=== PATIENT | male | born 1950 | race Caucasian/White ===

== ENCOUNTER 2023-05-05 13:40 | Emergency (ER) | payer MEDICARE, SELFPAY ==
--- NOTE | ~2023-05-05 | XR_ITS ---
EXAMINATION:XR cervical spine 4-5V DATE: 05/05/2023 14:04 INDICATION: Neck pain TECHNIQUE: AP, lateral, lateral swimmers and odontoid views of the cervical spine are provided. COMPARISON: None FINDINGS: There are 2 mm of anterolisthesis of C4 on C5 and C5 on C6. The odontoid process is intact. There is severe loss of intervertebral disc space height at C3-4, C5-6, and C6-7. The vertebral body heights are maintained. There is multilevel severe facet and uncovertebral joint osteoarthritis. IMPRESSION: 1. Severe cervical spondylosis without acute findings. Reviewed, dictated and finalized at location B.
--- NOTE | 2023-05-05 13:42 | ED.NECK ---
HPI - Neck Pain/Injury General Chief Complaint: Neck Pain/Injury Stated Complaint: Neck Pain Source: patient and RN notes reviewed Mode of arrival: ambulatory Limitations: no limitations History of Present Illness HPI Narrative: Patient is a 73-year-old male who presents to the [facility] with complaints pain. Patient states that he has had neck pain for quite awhile but it has worsened over the past. Patient states that he can feel his neck crack with moving his neck from side to side. However, patient has full range of motion of his neck. He denies any injury to his neck. States that his pain worsens with movement and positioning. Patient states that initially the pain was located on the right side of his neck but is now more generalized. He is neurologically intact. There are no obvious neurological deficits. Related Data Home Medications Medication Instructions Recorded Confirmed donepezil 10 mg tablet 10 mg PO DAILY 05/05/23 05/05/23 famotidine 20 mg tablet 40 mg PO DAILY 05/05/23 05/05/23 multivitamin with folic acid 400 1 tablet PO DAILY 05/05/23 05/05/23 mcg tablet (Daily-Jasvir (with folic acid)) paroxetine HCl 20 mg tablet 20 mg PO DAILY 05/05/23 05/05/23 tamsulosin 0.4 mg capsule 0.4 mg PO DAILY 05/05/23 05/05/23 Allergies Allergy/AdvReac Type Severity Reaction Status Date / Time No Known Allergies Allergy Verified 05/05/23 13:59 Review of Systems Review of Systems: CONSTITUTIONAL: Denies fever, chills, or sweats. EYES: Denies visual changes, redness, or discharge. ENT: Denies otalgia and sore throat CARDIOVASCULAR: Denies chest pain, palpitations, or edema. RESPIRATORY: Denies cough or dyspnea. GASTROINTESTINAL: Denies abdominal pain, nausea, vomiting, or diarrhea. GENITOURINARY: Denies dysuria or hematuria. SKIN: Denies rash or itching. MUSCULOSKELETAL: Denies back pain, joint pain, or myalgia. Reports neck pain. NEUROLOGIC: Denies headache, numbness, or weakness. Pertinent positives per HPI. [facility] Social History Social History Smoking status: Former smoker Smoking end date: 08/16/87 Alcohol intake: current Comments At the time of my signature, I reviewed and agree with the nursing past medical, surgical, social, and family history. There is no relevant family history pertinent to the patient complaint. Exam Narrative: GENERAL: This is a well-nourished, well-developed patient, in no apparent distress. HEAD: normocephalic, atraumatic. EYES: PERRL. Sclera clear/white. Vision is grossly intact. EARS: External ears normal, auditory canals clear and without drainage, TMs normal without perforation. Hearing grossly intact. NOSE: External nose normal with no obvious nasal discharge, nares without redness, no rhinorrhea. THROAT: Mucous membranes moist, posterior pharynx clear. NECK: Neck supple, non-tender without lymphadenopathy, masses or thyromegaly. Mild posterior midline tenderness. Full range of motion of the neck. CARDIOVASCULAR: Regular rate and rhythm without murmurs, gallops, or rubs. RESPIRATORY: Clear to auscultation. Breath sounds equal bilaterally. No wheezes, rales, or rhonchi. GASTROINTESTINAL: Abdomen soft, non-tender, nondistended. Bowel sounds are active. No hepato-splenomegaly, or palpable masses. No guarding. SKIN: warm, intact with no suspicious lesions or rash, good texture and turgor. NEURO: awake, alert, and oriented to person, place and time. There were no obvious focal neurologic abnormalities. EXTREMITIES: No clubbing, cyanosis, or edema. No joint tenderness, effusion, or edema noted. BACK: Nontender without deformity or crepitance. No flank tenderness. Course Course Level of Care: Express Care Visit Vital Signs Vital signs: Vital Signs Oxygen Delivery Room Air 05/05/23 13:52 Temperature 97.5 F L 05/05/23 13:53 Pulse Rate 65 05/05/23 13:53 Respiratory Rate 16 05/05/23 13:53
[2023-05-05 13:53] VITALS: BP 114/69; PULSE 65; RESP 16; TEMP 36.4; O2SAT 100
== END 2023-05-05 14:50 | disposition home or self-care (01) ==
PROVIDERS: Emergency Provider Nurse Practitioner; PCP Internal Medicine Infectious Disease
DX: M47.812 Spondylosis without myelopathy or radiculopathy, cervical region (principal); Z87.891 Personal history of nicotine dependence; G30.9 Alzheimer's disease, unspecified; F02.80 Dementia in other diseases classified elsewhere, unspecified severity, without behavioral disturbance, psychotic disturbance, mood disturbance, and anxiety
CPT/HCPCS: 72050; 99213; G0463

== ENCOUNTER 2023-06-26 10:37 | Outpatient (CLI) | payer MEDICARE, SELFPAY ==
--- NOTE | ~2023-06-26 | MR_ITS ---
EXAMINATION: MR cervical spine wo con DATE: 06/26/2023 11:27 INDICATION: Neck pain. TECHNIQUE: Magnetic resonance imaging (MRI) of the cervical spine was performed without intravenous c ontrast. COMPARISON: Cervical spine radiographs 05/05/2023 FINDINGS: There is 5 degrees levocurvature of cervicothoracic spine. There is 2 mm anterolisthesis of C2 on C3, 2 mm retrolisthesis of C3 on C4, 2 mm anterolisthesis of C4 on C5, and 3 mm anterolisthesi s of C7 on T1. There is mild chronic anterior wedging of T1 vertebral body. There is severe osteoarth ritis of anterior atlantoaxial joint with degenerative peridens pseudopannus and mild central canal s tenosis. There is severely decreased disc height at C3-C4, C5-C6, and C6-C7 with interbody fusion at C5-C6. There is increased T2-weighted signal intensity in the spinal cord at C6-C7, consistent with m yelomalacia. The following disc levels are specifically discussed: C2-C3: There is a central extrusion. There is mild bilateral uncovertebral joint osteoarthritis. Ther e is severe bilateral facet joint osteoarthritis. There is mild bilateral neural foraminal stenosis. There is mild central canal stenosis. C3-C4: The disc does not extend beyond the endplate margin. There is severe bilateral uncovertebral j oint osteoarthritis. There is severe bilateral facet joint osteoarthritis. There is moderate bilatera l neural foraminal stenosis. There is moderate central canal stenosis with ventral and dorsal indenta tion of the spinal cord. C4-C5: There is a left central protrusion. There is mild right and severe left uncovertebral joint os teoarthritis. There is severe bilateral facet joint osteoarthritis. There is mild right and moderate left neural foraminal stenosis. There is mild central canal stenosis. C5-C6: There is severe bilateral uncovertebral joint hypertrophy. There is mild bilateral facet joint hypertrophy. There is mild bilateral neural foraminal stenosis. There is mild central canal stenosis . C6-C7: The disc is bulging. There is severe bilateral uncovertebral joint osteoarthritis. There is se margo bilateral facet joint osteoarthritis. There is moderate right and mild left neural foraminal soniya nosis. There is mild central canal stenosis. C7-T1: There is a central extrusion. There is no uncovertebral joint osteoarthritis. There is severe bilateral facet joint osteoarthritis. There is mild left neural foraminal stenosis. There is mild russell tral canal stenosis. IMPRESSION: 1. 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 2. Severe cervical spondylosis. Reviewed, dictated and finalized at location A. [employer]
== END 2023-06-26 10:38 | disposition home or self-care (01) ==
PROVIDERS: PCP Internal Medicine Infectious Disease; Visit Provider Nurse Practitioner Family
DX: M47.892 Other spondylosis, cervical region (principal)
CPT/HCPCS: 72141

== ENCOUNTER 2024-10-14 09:26 | Emergency (ER) | payer MEDICARE, SELFPAY ==
[2024-10-14] VITALS (7 sets, daily range): BP systolic 125–165; BP diastolic 67–83; PULSE 51–78; RESP 14–16; TEMP 36.6; O2SAT 96–100
--- NOTE | 2024-10-14 10:04 | ED.FALL ---
HPI - Fall General Chief Complaint: Fall Stated Complaint: unwitnessed glf Time Seen by Provider: 10/14/24 10:04 Source: patient, family and EMS Mode of arrival: EMS Limitations: altered mental status History of Present Illness HPI Narrative: 74 years old white male came from longterm by ambulance because of a fall Patient sustained an unwitnessed fall this morning patient found on the floor, multiple front top teeth missing and broken patient is not on anticoagulant medication patient is awake and oriented x1 at baseline. Patient's at the bedside who is telling me patient is DNR, moved to longterm 1 week ago. Related Data Home Medications ?Medication ?Instructions ?Recorded ?Confirmed ?Last Taken ?Type donepezil 10 mg tablet 10 mg PO DAILY 05/05/23 06/05/24 06/05/24 09:14 History famotidine 20 mg tablet 20 mg PO BID 05/05/23 06/05/24 06/05/24 09:14 History paroxetine HCl 20 mg tablet 20 mg PO DAILY 05/05/23 06/05/24 06/05/24 09:14 History calcium carbonate 400 mg PO TID PRN Dyspepsia 06/05/24 06/05/24 Unknown History guaifenesin 600 mg tablet, 600 mg PO Q12H 06/05/24 06/05/24 06/05/24 09:14 History extended release 12 hr lidocaine 4 % topical patch 1 patch topical USEASDIRECTD 06/05/24 06/05/24 06/04/24 10:28 History (Aspercreme (lidocaine)) loratadine 10 mg tablet 10 mg PO DAILY PRN Allergy Symptoms 06/05/24 06/05/24 Unknown History melatonin 3 mg tablet 6 mg PO HS 06/05/24 06/05/24 06/04/24 19:56 History naloxone 0.4 mg/mL injection 0.4 mg subcut Q2-3M PRN Opioid 06/05/24 06/05/24 Unknown History solution Reversal polyethylene glycol 3350 17 gram 17 g PO BID 06/05/24 06/05/24 06/04/24 10:27 History oral powder packet sennosides 8.6 mg-docusate sodium 1 tab-cap PO DAILY 06/05/24 06/05/24 06/04/24 10:27 History 50 mg tablet Allergies Allergy/AdvReac Type Severity Reaction Status Date / Time No Known Allergies Allergy Verified 05/05/23 13:59 Review of Systems Review of Systems: All systems reviewed & are unremarkable except as noted in HPI and below PMFSH Past Medical History Medical History Arthritis Constipation Cirrhosis Frequent falls Dementia Social History Social History Smoking packs per day: 1 Smoking cigarettes per day: 20.0 Years smoked: 17 Smoking pack-years: 17.00 Smoking status: Former smoker Tobacco type: cigarettes Smoking end date: 08/16/87 Alcohol intake: former Substance use: never Do You Feel Safe in your Home?: Yes Lack of Transportation: No Lack of Food: Never True Current Housing: I Have Housing Concerned About Future Housing: No Difficulty Paying Gas/Electric Bills: No Difficulty Paying for Meds: No Currently Unemployed: No Education: Master's Degree or Higher Difficulty w/ Childcare or Family Care: No Living arrangements: with family Occupation/Education: retired Gender identity (if verbalized by the patient): Male Sexual Orientation (if Verbalized by the Patient): Straight or Heterosexual Spiritual care concerns: No Agree to blood products: Yes Exam Narrative: General appearance: Well-developed, well-nourished Skin: Normal color Head: Normocephalic, nontraumatic Eyes: Clear conjunctiva ENT: Oropharynx normal, ears normal, nose normal front top teeth missing, impacted and fracture, upper lip 1 cm laceration, subcutaneous Neck: Supple, nontender Chest and respiratory: Airway patent, no respiratory distress, no accessory muscle use tenderness across the chest, no bruises, no swelling no rash Heart: Regular rate/rhythm Abdomen: Soft, nontender, no organomegaly, quiet bowel sounds Vascular: Normal peripheral pulses, normal capillary refill. Musculoskeletal: Restricted left upper extremity movement at the shoulder area, no bruises, no swelling, no deformity Neurologic: Alert AND DISORIENTED TIME 4 Course Consultations Consultation #1: DR HAMLIN, ED PHYSICIAN AT [facility] WHO ACCEPTED PATIENT TRANSFER Date: 10/14/24 Time: 11:35 Vital Signs Vital signs: Vital Signs Temperature 36.6 C 10/14/24 09:25 Pulse Rate 78 10/14/24 09:25 Respiratory Rate 14 10/14/24 09:25 Blood Pressure 137/74 10/14/24 09:25 Pulse Oximetry 99 10/14/24 09:25 Oxygen Delivery Room Air 10/14/24 09:25 Temperature 36.6 C 10/14/24 09:25 Pulse Rate 69 10/14/24 11:00 Respiratory Rate 15 10/14/24 11:00 Blood Pressure 134/67 10/14/24 11:00 Pulse Oximetry 96 10/14/24 11:00 Oxygen Delivery Room Air 10/14/24 09:25 MDM - Fall MDM Narrative Medical decision making narrative: UNWITNESSED FALL AT THE LONG-TERM VITAL SIGNS ARE STABLE PHYSICAL EXAMINATION SHOWING ALERT PATIENT, DISORIENTED X 4, UPPER FRONT INCISOR FRACTURE/MISSING, DIFFUSE CHEST TENDERNESS WORKUP TODAY INCLUDED CT SCAN OF THE HEAD AND CERVICAL SPINE SHOWED NO ACUTE ABNORMALITIES, CT FACIAL BONES SHOWING LEFT MAXILLARY FRACTURE, FRONT AND LATERAL INCISOR FRACTURE, CT CHEST SHOWED RIGHT 5-7 RIB FRACTURE NONDISPLACED X-RAY LEFT SHOULDER SHOWED ROTATOR CUFF TEAR PATIENT RECEIVED A TETANUS SHOT AND NORMAL SALINE 100 CC/HOURS ACCEPTED FOR TRANSFERRED TO [facility] ED Differential Diagnosis Differential diagnosis: Likely other ( ABOVE) Imaging Data Radiologist's impression: Impressions Head CT 10/14/24 10:44 IMPRESSION: 1. Normal aging brain with no fracture or acute intracranial process. Chest CT 10/14/24 10:50 IMPRESSION: 1. Nondisplaced anterolateral right fifth-seventh rib fractures. 2. Mild dependent atelectasis in both lungs. No pneumothorax or other acute cardiopulmonary disease. 3. Cirrhosis with stigmata of secondary portal venous hypertension. 4. Moderate bilateral glenohumeral osteoarthritis with suggestion of a right glenohumeral joint effusion and/or fluid in the subacromial/subdeltoid bursa. Head/Cervical Spine/Facial Bones CT 10/14/24 10:56 IMPRESSION: 1. No acute maxillofacial fractures. 2. Possible fractures of the left maxillary central and lateral incisors. 3. Severe cervical spondylosis with no acute fracture. Shoulder X-Ray 10/14/24 11:13 IMPRESSION: Moderate left acromioclavicular and glenohumeral osteoarthritis with no fracture. 2. Possible subluxation of the left humeral head with respect to the glenoid and acromion which could be seen in the setting of rotator cuff tear. Discharge Plan Discharge Clinical Impression: Facial bone fracture, Closed rib fracture, Fracture of incisor teeth, Left rotator cuff tear Patient Disposition: Acute Care Hospital Condition: Stable Additional Instructions: TRANSFERRED TO [facility] Patient Language: Colombian Prescriptions: No Action donepezil 10 mg tablet 10 mg PO DAILY famotidine 20 mg tablet 20 mg PO BID paroxetine HCl 20 mg tablet 20 mg PO DAILY lidocaine [Aspercreme (lidocaine)] 4 % Adhesive Patch,Medicated 1 patch TOPICAL USEASDIRECTD Rx Instructions: Ribs polyethylene glycol 3350 17 gram Powder In Packet 17 g PO BID naloxone 0.4 mg/mL Solution 0.4 mg SUBCUT Q2-3M PRN (Reason: Opioid Reversal) Rx Instructions: inject 0.25-1 mL sennosides-docusate sodium 8.6-50 mg Tablet 1 tab-cap PO DAILY melatonin 3 mg Tablet 6 mg PO HS calcium carbonate 200 mg calcium (500 mg) Tablet,Chewable 400 mg PO TID PRN (Reason: Dyspepsia) loratadine 10 mg Tablet 10 mg PO DAILY PRN (Reason: Allergy Symptoms) guaifenesin 600 mg Tablet Extended Release 12hr 600 mg PO Q12H Rx Instructions: x7 days midodrine 5 mg Tablet 5 mg PO Q8HR Qty: 90 0RF quetiapine [Seroquel] 25 mg Tablet 50 mg PO HS Qty: 60 0RF acetaminophen 325 mg Tablet 325 mg PO Q6H PRN (Reason: prn) Qty: 30 0RF gabapentin 100 mg Capsule 100 mg PO TID Qty: 90 0RF fludrocortisone 0.1 mg Tablet 0.1 mg PO DAILY Qty: 30 0RF methocarbamol 500 mg Tablet 500 mg PO Q8H Qty: 60 0RF trazodone 50 mg Tablet 50 mg PO HS Qty: 30 0RF Follow-up/Referrals: Leigh Ann,Jayme Garcia MD [Primary Care Provider] -
[2024-10-14] MEDS: TETANUS,DIPHTHERIA,AC PERTUSSIS ADULT (0.5 ML) BOOSTRIX IM (11:55)
[2024-10-14] MEDS: SODIUM CHLORIDE 0.9% IV 1,000 ML 100 ML IV CONT (11:56)
--- NOTE | 2024-10-14 15:00 | PC.NURSE ---
SEAN Vaughn at [facility] updated that pt. will be transferred to [facility]. All questions answered at this time.
--- NOTE | 2024-10-14 15:46 | PC.NURSE ---
Report given to [facility]. Pt. taken to [facility] via BLS ambulance. at bedside when ambulance arrives and will meet pt. at [facility].
== END 2024-10-14 15:48 | disposition short-term general hospital (02) ==
PROVIDERS: Emergency Provider Emergency Medicine; PCP Internal Medicine Infectious Disease
DX: S02.5XXA Fracture of tooth (traumatic), initial encounter for closed fracture (principal); S22.41XA Multiple fractures of ribs, right side, initial encounter for closed fracture; S46.012A Strain of muscle(s) and tendon(s) of the rotator cuff of left shoulder, initial encounter; Z23 Encounter for immunization; F03.90 Unspecified dementia, unspecified severity, without behavioral disturbance, psychotic disturbance, mood disturbance, and anxiety; K74.60 Unspecified cirrhosis of liver; M19.90 Unspecified osteoarthritis, unspecified site; Z66 Do not resuscitate; Z87.891 Personal history of nicotine dependence; W19.XXXA Unspecified fall, initial encounter; M47.812 Spondylosis without myelopathy or radiculopathy, cervical region; M19.012 Primary osteoarthritis, left shoulder; I45.10 Unspecified right bundle-branch block
CPT/HCPCS: 70450; 70486; 71250; 72125; 73030; 90471; 90715; 93005; 96360; 96361; 99285; J7030

== ENCOUNTER 2024-11-09 18:26 | Emergency (ER) | payer MEDICARE, SELFPAY ==
--- NOTE | ~2024-11-09 | CT_ITS ---
CT brain wo con Ordering provider: Zen Newby MD History: 74 years Male with . fall . Comparison: None. Technique: CT of the head without contrast. Radiation reduction technique utilized. The dose-length product was 681 mGy-cm. FINDINGS: BRAIN PARENCHYMA AND CSF SPACES: Mild leukoaraiosis and diffuse cortical atrophy. Mild atheromatous d isease. No midline shift, mass effect or hemorrhage. The brain parenchyma and CSF spaces are otherwi se normal. VISUALIZED PARANASAL SINUSES: Right sphenoid sinus. Otherwise, Well aerated. MASTOIDS: Well aerated. BONES: The bones appear intact. SOFT TISSUES: Visualized nasopharynx is normal. Superficial soft tissues are normal. IMPRESSION: No acute intracranial findings. Reviewed, dictated and finalized at location A.
--- NOTE | ~2024-11-09 | XR_ITS ---
XR elbow LT 2V Ordering provider: Zen Newby MD History: . fall, skin tear . Comparison: None. FINDINGS: BONES: No acute fracture or dislocation. JOINT SPACES: Normal. SOFT TISSUES: Normal. No definite joint effusion. IMPRESSION: No acute osseous abnormality left elbow. Reviewed, dictated and finalized at location A.
--- NOTE | ~2024-11-09 | CT_ITS ---
CT cervical spine wo con Ordering provider: Zen Newby MD History: . fall . Comparison: None. Technique: CT of the cervical spine was performed without contrast. Sagittal and coronal reformatted images were also obtained and reviewed. Automated exposure control and iterative reconstruction jovi hnique were employed. The dose-length product was 470.49 mGy-cm. FINDINGS: VERTEBRAE: Minimal anterolisthesis at the level of C4-C5 and C7-T1. No acute fracture. The occipital condyles are intact. DISC SPACES: Narrowing of the disc C3-C4, C5-C6 and C6-C7. Multilevel facet joint disease. Multilevel uncovertebral joint osteoarthritic changes. Multilevel intervertebral foraminal narrowing. PARASPINOUS SOFT TISSUES: Bilateral carotid atherosclerotic changes. IMPRESSION: No acute osseous abnormality cervical spine. Minimal anterolisthesis at the level of C4-C5 and C7-T1. Multilevel degenerative disc disease. Reviewed, dictated and finalized at location A. IMPRESSION: No acute osseous abnormality cervical spine. Minimal anterolisthesis at the lev el of C4-C5 and C7-T1. Multilevel degenerative disc disease.
[2024-11-09 18:24] VITALS: BP 120/61; PULSE 67; RESP 14; TEMP 36.2; O2SAT 97
--- NOTE | 2024-11-09 18:31 | ECG_ITS ---
Test Date: 2024-11-09 18:55:51 Measurements Intervals [place] Rate: 62 P: 57 MA: 179 QRS: 4 QRSD: 143 T: 7 QT: 413 QTc: 420 Interpretive Statements SINUS RHYTHM RIGHT BUNDLE BRANCH BLOCK [120+ ms QRS DURATION, UPRIGHT V1, 40+ ms S IN I/aVL/V4/V5/V6] Compared to ECG 10/14/2024 09:34:16 No significant changes Electronically Signed On 11-10-2024 10:39:52 CDT by Mary Colon M.D.
--- NOTE | 2024-11-09 18:32 | ED.FALL ---
HPI - Fall General Chief Complaint: Fall Stated Complaint: fall History of Present Illness HPI Narrative: 74-year-old male [facility] for concerns of a fall while trying to get out of a chair. Patient has baseline alert times 1-2 from advanced dementia. He fell and struck the left side of his head and elbow against the door frame of the nurse's office. Did not lose consciousness. Patient is complain of pain in his neck and elbow. Was otherwise in his normal state of health. Recently seen here several weeks ago for another mechanical sending fall and transfer to outside hospital secondary to multiple injuries. Patient is answering questions and arousable. Moves all extremities spontaneously and with commands. Presents in a C-collar. His tetanus is up-to-date during his last visit several weeks ago. Brought back in to room 2. For further evaluation. Related Data Home Medications ?Medication ?Instructions ?Recorded ?Confirmed ?Last Taken ?Type donepezil 10 mg tablet 10 mg PO DAILY 05/05/23 06/05/24 06/05/24 09:14 History famotidine 20 mg tablet 20 mg PO BID 05/05/23 06/05/24 06/05/24 09:14 History paroxetine HCl 20 mg tablet 20 mg PO DAILY 05/05/23 06/05/24 06/05/24 09:14 History calcium carbonate 400 mg PO TID PRN Dyspepsia 06/05/24 06/05/24 Unknown History guaifenesin 600 mg tablet, 600 mg PO Q12H 06/05/24 06/05/24 06/05/24 09:14 History extended release 12 hr lidocaine 4 % topical patch 1 patch topical USEASDIRECTD 06/05/24 06/05/24 06/04/24 10:28 History (Aspercreme (lidocaine)) loratadine 10 mg tablet 10 mg PO DAILY PRN Allergy Symptoms 06/05/24 06/05/24 Unknown History melatonin 3 mg tablet 6 mg PO HS 06/05/24 06/05/24 06/04/24 19:56 History naloxone 0.4 mg/mL injection 0.4 mg subcut Q2-3M PRN Opioid 06/05/24 06/05/24 Unknown History solution Reversal polyethylene glycol 3350 17 gram 17 g PO BID 06/05/24 06/05/24 06/04/24 10:27 History oral powder packet sennosides 8.6 mg-docusate sodium 1 tab-cap PO DAILY 06/05/24 06/05/24 06/04/24 10:27 History 50 mg tablet Allergies Allergy/AdvReac Type Severity Reaction Status Date / Time No Known Allergies Allergy Verified 05/05/23 13:59 Review of Systems Review of Systems: As reviewed above in [facility] Past Medical History Medical History Arthritis Constipation Cirrhosis Frequent falls Dementia Social History Social History Smoking packs per day: 1 Smoking cigarettes per day: 20.0 Years smoked: 17 Smoking pack-years: 17.00 Smoking status: Former smoker Tobacco type: cigarettes Smoking end date: 08/16/87 Alcohol intake: former Substance use: never Do You Feel Safe in your Home?: Yes Lack of Transportation: No Lack of Food: Never True Current Housing: I Have Housing Concerned About Future Housing: No Difficulty Paying Gas/Electric Bills: No Difficulty Paying for Meds: No Currently Unemployed: No Education: Master's Degree or Higher Difficulty w/ Childcare or Family Care: No Living arrangements: with family Occupation/Education: retired Gender identity (if verbalized by the patient): Male Sexual Orientation (if Verbalized by the Patient): Straight or Heterosexual Spiritual care concerns: No Agree to blood products: Yes Exam Narrative: GENERAL: Elderly and thin, frail appearing, not any acute distress, answers questions and arousable HEAD: [Normocephalic, atraumatic.] EYES: [PERRLA and EOMI.] ENT: Nares clear, no rhinorrhea or epistaxis. Mucous membranes moist. NECK: Supple. C-collar in place CHEST: [Clear to auscultation. No respiratory distress.] HEART: [Regular rate and rhythm]. No murmur heard. [Normal peripheral pulses.] ABDOMEN: [Soft, nondistended], [nontender], [No rigidity or guarding] EXTREMITIES: Normal range of motion. [No edema.] No leg swelling or elbow swelling. Full range of motion of the elbow. SKIN: Skin tear to the left lateral elbow without any significant wound. No bleeding. NEURO: [No focal deficits]. Moves both arms and feet, answers questions appropriately, follows commands, no facial asymmetry. Pupils 2 mm and reactive. No appreciable sensory deficits. Alert to his apparent baseline. PSYCH: [Normal mood and affect.] Course Vital Signs Vital signs: Vital Signs Temperature 36.2 C L 11/09/24 18:24 Pulse Rate 67 11/09/24 18:24 Respiratory Rate 14 11/09/24 18:24 Blood Pressure 120/61 11/09/24 18:24 Pulse Oximetry 97 11/09/24 18:24 Temperature 36.2 C L 11/09/24 18:24 Pulse Rate 67 11/09/24 18:24 Respiratory Rate 14 11/09/24 18:24 Blood Pressure 120/61 11/09/24 18:24 Pulse Oximetry 97 11/09/24 18:24 MDM - Fall MDM Narrative Medical decision making narrative: 74-year-old male presenting [facility] for a [facility]. He fell out of a chair and struck the left side of his head and elbow against a door frame before going to the ground. Did not lose consciousness. Not on any anticoagulation on review of the EMR and nursing notes. His a history of advanced dementia, alcoholic cirrhosis, frequent falls. Was recently here several weeks ago and transfer to another hospital after multiple injuries were found from another fall. He is otherwise not any acute distress, answering questions, awake to his baseline mentation, some skin tear to his elbow but no signs of facial or head trauma. C-collar in place. Moves all extremities spontaneously and follows commands. CT scan of the cervical spine head was ordered, x-rays of left elbow obtained. Basic laboratory studies ordered. Suspicion presently is for closed head injury, concussion, low suspicion intracranial process such as a bleed, subdural hematoma subarachnoid or epidural hematoma. Low suspicion cervical fracture. Possible contusion to his elbow versus less likely occult fracture. Will re-evaluate after imaging studies and labs. CT scan shows no acute osseous abnormalities of the cervical spine, multilevel degenerative disc disease. CT of the head shows no acute findings. Elbow x-ray without concern. Laboratory studies are unremarkable. EKG shows sinus rhythm, no ST segment elevations, depressions or inversions. Right bundle-branch block. No concern for acute ischemia compared to prior EKG. Patient has stable vital signs and an unremarkable examination he is at his baseline mentation. He is safe for discharge back to his facility at this time. Medical Records Attestation: I reviewed the patient's medical records. Lab Data Attestation: I reviewed the patient's lab results. 11/09/24 19:45 11/09/24 19:45 Labs: Lab Results 11/09/24 Range/Units 19:45 WBC 4.6 (4.5-10.0) K/mm3 RBC 3.41 L (4.6-6.20) M/mm3 Hgb 11.0 L (14.0-18.0) g/dL Hct 33.2 L (42.0-52.0) % MCV 97.4 (80-100) fl MCH 32.3 (26-34) pg MCHC 33.1 (32-36) g/dl RDW 14.0 (11.5-14.5) % Plt Count 117 L (150-375) k/mm3 MPV 11.1 H (7.4-10.4) fl Immature Gran % (Auto) 0.4 (0-0.5) % Neut % (Auto) 71.8 (45.5-73.1) % Lymph % (Auto) 13.9 L (18.3-44.2) % [place] % (Auto) 10.2 H (2.6-8.5) % Eos % (Auto) 2.8 (0-4.4) % Baso % (Auto) 0.9 (0.2-1.2) % Lymph # (Auto) 0.64 L (0.9-3.2) K/mm3 [place] # (Auto) 0.5 (0.1-0.6) K/mm3 Eos # (Auto) 0.1 (0-0.3) K/mm3 Baso # (Auto) 0.0 (0.0-0.1) K/mm3 Abs Immat Gran (auto) 0.02 (0.00-0.031) K/mm3 Absolute Neuts (auto) 3.3 (1.3-6.7) K/mm3 Absolute Nucleated RBC 0.000 (0.0-0.012) K/mm3 Nucleated RBC % 0.0 (0.0-0.2) % PT 15.1 H (11.1-14.7) Seconds INR 1.1 APTT 29.4 (22.3-36.8) Seconds Sodium 139 (137-145) mmol/L Potassium 3.5 (3.4-5.0) mmol/L Chloride 101 (98-107) mmol/L Carbon Dioxide 31 H (22-30) mmol/L Anion Gap 7 (4-12) mmol/L BUN 18 (9-20) mg/dL Creatinine 0.80 (0.7-1.3) mg/dL Estim Creat Clear Calc 68 ml/min Estimated GFR > 60 (59 - ) Glucose 115 H (65-110) mg/dL Calcium 8.4 (8.4-10.2) mg/dL Total Bilirubin 1.0 (0.2-1.3) mg/dL AST 44 (17-59) U/L ALT 45 (6-50) U/L Alkaline Phosphatase 128 H (38-126) U/L Total Protein 6.0 L (6.3-8.2) g/dL Albumin 3.5 (3.5-5.1) g/dL Imaging Data Attestation: I personally reviewed and interpreted this imaging study as follows: My impression: Impressions Elbow X-Ray 11/09/24 18:57 IMPRESSION: No acute osseous abnormality left elbow. Head CT 11/09/24 19:09 IMPRESSION: No acute intracranial findings. Cervical Spine CT 11/09/24 19:20 IMPRESSION: No acute osseous abnormality cervical spine. Minimal anterolisthesis at the level of C4-C5 and C7-T1. Multilevel degenerative disc disease. Discharge Plan Discharge Clinical Impression: CHI (closed head injury), Dementia, Accidental fall from chair Patient Disposition: NH Senior Care/Asst Living Condition: Stable Instructions: Antibiotic Form Patient Language: Barbadian Prescriptions: No Action donepezil 10 mg tablet 10 mg PO DAILY famotidine 20 mg tablet 20 mg PO BID paroxetine HCl 20 mg tablet 20 mg PO DAILY lidocaine [Aspercreme (lidocaine)] 4 % Adhesive Patch,Medicated 1 patch TOPICAL USEASDIRECTD Rx Instructions: Ribs polyethylene glycol 3350 17 gram Powder In Packet 17 g PO BID naloxone 0.4 mg/mL Solution 0.4 mg SUBCUT Q2-3M PRN (Reason: Opioid Reversal) Rx Instructions: inject 0.25-1 mL sennosides-docusate sodium 8.6-50 mg Tablet 1 tab-cap PO DAILY melatonin 3 mg Tablet 6 mg PO HS calcium carbonate 200 mg calcium (500 mg) Tablet,Chewable 400 mg PO TID PRN (Reason: Dyspepsia) loratadine 10 mg Tablet 10 mg PO DAILY PRN (Reason: Allergy Symptoms) guaifenesin 600 mg Tablet Extended Release 12hr 600 mg PO Q12H Rx Instructions: x7 days midodrine 5 mg Tablet 5 mg PO Q8HR Qty: 90 0RF quetiapine [Seroquel] 25 mg Tablet 50 mg PO HS Qty: 60 0RF acetaminophen 325 mg Tablet 325 mg PO Q6H PRN (Reason: prn) Qty: 30 0RF gabapentin 100 mg Capsule 100 mg PO TID Qty: 90 0RF fludrocortisone 0.1 mg Tablet 0.1 mg PO DAILY Qty: 30 0RF methocarbamol 500 mg Tablet 500 mg PO Q8H Qty: 60 0RF trazodone 50 mg Tablet 50 mg PO HS Qty: 30 0RF Follow-up/Referrals: Leigh Ann,Jayme Garcia MD [Primary Care Provider] - Stand Alone Forms: Detention Discharge Time of Disposition: 20:12
--- OUTSIDE RECORDS SUMMARY | 2024-11-09 18:53 | XMS_ITS | Clinical Summary ---
Author Organization [facility] Address [address] [place] [address] Phone Care Team Providers Care Marketing Development Specialist Name Role Phone Jayme Beltrán MD Primary Care Provider Unavail able Allergies No known active allergies Medications famotidine (PEPCID) 20 mg tablet Take 20 mg by mouth 2 times daily. Active PARoxetine HCl (PAXIL) 20 mg tablet Take 20 mg by mouth daily. Active donepeziL (ARICEPT) 5 mg tablet Take 10 mg by mouth daily. Active gabapentin (NEURONTIN) 100 mg capsule Take 100 mg by mouth 3 times daily as needed for Pain. Active calcium as carbonate (TUMS) 500 mg (200 mg elemental) Tablet, Chewable Take 400 mg by mouth 3 times daily as needed for Dyspepsia or Indigestion. Active loratadine (CLARITIN) 10 mg tablet Take 10 mg by mouth 1 time daily as needed for Allergies. Active QUEtiapine (SEROquel) 25 mg tablet Take 25 mg by mouth daily at bedtime. Active tamsulosin (FLOMAX) 0.4 mg capsule Hold until Orthostatic are improved 06/05/20 Active traZODone (DESYREL) 50 mg tablet Take 1 Tablet (50 mg) by mouth daily at bedtime. 06/05/20 Active sennosides-docu sate sodium (SENNA-S) 8.6-50 mg tablet Take 1 Tablet by mouth daily. 06/06/20 Active polyethylene glycol (MIRALAX) 17 gram Powder in Packet Take 1 Packet (17 Grams) by mouth 2 times daily. 06/05/20 Active midodrine (PROAMATINE) 10 mg Tablet Take 1 Tablet (10 mg) by mouth every 8 hours. 90 Tablet 10/21/20 24 Active melatonin 3 mg Tablet Take 2 Tablets (6 mg) by mouth daily at bedtime. 06/05/20 Active Lidocaine 4 % Adhesive Patch, Medicated ribs 06/06/20 Active fludrocortisone (FLORINEF) 0.1 mg tablet Take 1 Tablet (0.1 mg) by mouth daily. 30 Tablet 06/06/20 Active bisacodyL (DULCOLAX) 10 mg Suppository Insert 1 Suppository (10 mg) by rectum 1 time daily as needed for Constipation. 06/05/20 Active acetaminophen (TYLENOL) 325 mg tablet Take 1 Tablet (325 mg) by mouth every 6 hours. 06/05/20 Active naloxone (NARCAN) 0.4 mg/mL Solution Inject 0.25-1 mL (0.1-0.4 mg) by intravenous injection see administration instructions. 06/05/20 Active Active Problems Problem Noted Date Diagnosed Date Orthostatic hypotension 06/02/2024 Pneumothorax, traumatic 05/30/2024 Fall down stairs 05/30/2024 Closed fracture of multiple ribs of right side 1 Encounters Date Type Department Care Team Description 11/07/2024 External Device Data [facility] Provider, Abstract 11/07/2024 External Device Data [facility] Provider, Abstract 11/07/2024 External Device Data [facility] Provider, Abstract 10/04/2024 External Device Data [facility] Provider, Abstract 10/03/2024 External Device Data [facility] Provider, Abstract 09/26/2024 External Device Data [facility] Provider, Abstract 09/26/2024 External Device Data [facility] Provider, Abstract 09/19/2024 External Device Data [facility] Provider, Abstract 09/07/2024 External Device Data [facility] Provider, Abstract 08/29/2024 External Device Data [facility] Provider, Abstract from Last 3 Months Social History Tobacco Use Types Packs/Day Years Used Date Smoking Tobacco: Unknown Tobacco Cessation:Counseling Given: Not Answered Feeling Safe Answer Date Recorded Are you in a relationship wi th someone who hurts you emotionally and/or physically? No 05/27/2024 Food Insecurity Answer Date Recorded Social/Environmental Concerns No concerns Transportation Needs Answer Date Record ed Social/Environmental Concerns No concerns Housing Stability Answer Date Recorded Social/Environmental Concerns No concerns Utility Needs Answer Date Recorded Social/Environmental Concerns No concerns Sex and Gender Information Value Date Recorded Sex Assigned at Not on file Legal Sex Male 12:42 PM CDT Gender Identity Not on file Sexual Orientation Not on file Last Filed Vital Signs Vital Sign Reading Time Taken Comments Blood Pressure 113/64 06/05/2024 9:07 AM CDT Pulse 65 06/05/2024 8:18 AM CDT Temperature 36.6 C (97.9 F) 06/05/2024 8:18 AM CDT Respiratory Rate 18 06/05/2024 8:18 AM CDT Oxygen Saturation 96% 06/05/2024 8:18 AM CDT Inhaled Oxygen Concentration - - Weight 72.6 kg (160 lb) 05/27/2024 12:53 PM CDT Height 160 cm (5' 3 ) 05/27/2024 12:53 PM CDT Body Mass Index 28.34 05/27/2024 12:53 PM CDT Plan of Treatment Health Maintenance Due Date Last Done Comments RSV VACCINE (60+ or ) (1 - 1-dose 75+ series) 01/03/2023 INFLUENZA VACCINE (#1) 2024 , 05/11/2022, 06/02/2021, Additional history exists COVID-19 Vaccine ( - 2023-2 5 season) 2024 06/05/2023, 04/26/2022, 11/02/2020, Additional history exists DTAP/TDAP/TD VACCINES (3 - T d or Tdap) 07/31/2033 07/31/2023, 05/28/2010 ZOSTER VACCINE Completed 01/02/2019, 10/14, 06/01/2014, Additional history exists PNEUMOCOCCAL VACCINE 50+ YEARS Completed 0 01/05/2020, 04/18/2019, 08/16/2007 Insurance [employer] PPO [facility] Advance Directives For more information, please contact: [phone] * Full Code (Latest Code Status on File) Date Activated Date Inactivated Comments 05/30/2024 10:16 AM 06/05/2024 2:41 PM * Default Full Code - Needs Discussion Date Activated Date Inactivated Comments 05/27/2024 4:36 PM 05/30/2024 10:16 AM Care Teams Marketing Development Specialist Relationship Specialty Start Date End Date Jayme Beltrán MD NO ADDRESS ON FILE PCP - General Internal Medicine 05/28/24
--- OUTSIDE RECORDS SUMMARY | 2024-11-09 18:53 | XMS_ITS | Encounter Summary ---
Author Organization [facility] Address [address] [place] [address] Care Team Providers Care Jointer Machine Name Role Phone Jayme Beltrán MD Primary Care Provider Unavail able Reason for Visit * Reason Onset Date Comments Persistent Orthostatic hypotension 06/03/2024 Spoke phil Phillips @ Dr. Kayla wilkes Encounter Details Date Type Department Care Team (Late st Contact Info) Description 06/03/2024 Telephone [facility] Admitting [address] [place] [address] [place] [id number] [facility] [address] [place] [address] Persistent Orthostatic hypotension (Spoke phil Phillips @ Dr. Kayla wilkes) Social History Tobacco Use Types Packs/Day Years Used Date Smoking Tobacco: Unknown Feeling Safe Answer Date Recorded Are you [...] on file Sexual Orientation Not on file documented as of this encounter Plan of Treatment Not on file documented as of this encounter Visit Diagnoses Not on filedocumented in this encounter Care Teams Jointer Machine Relationship Specialty Start Date End Date Jayme Beltrán MD NO ADDRESS ON FILE PCP - General Internal Medicine 05/28/24 documented as of this encounter
--- OUTSIDE RECORDS SUMMARY | 2024-11-09 18:54 | XMS_ITS | Encounter Summary ---
Author Organization [facility] Address [address] [place] [address] Care Team Providers Care Automotive Upholsterer Name Role Phone Jayme Beltrán MD Primary Care Provider Unavail able Encounter Details Date Type Department Care Team (Late st Contact Info) Description 11/07/2024 External Device Data [facility] Provider, Abstract NO ADDRESS ON FILE Social History Tobacco Use Types Packs/Day Years [...] on filedocumented in this encounter Care Teams Automotive Upholsterer Relationship Specialty Start Date End Date Jayme Beltrán MD NO ADDRESS ON FILE PCP - General Internal Medicine 05/28/24 documented as of this encounter
--- OUTSIDE RECORDS SUMMARY | 2024-11-09 18:54 | XMS_ITS | Clinical Summary ---
Author Organization [facility] Address [address] [place] [address] Care Team Providers Care Biomedical Photographer Name Role Phone None, Physician Primary Care Provider Unavailabl e Source Comments [facility],non-owned Affiliates and Associated Physician Practices is amultiple site organization consisting of ambulatory clinics and hospital sitesin [place], [place], [place] and [place]. This disclosure is being madepursuant to the Care Everywhere program and may not contain all information available regarding this patient. Last updated 18.[facility] Allergies No known active allergies Encounters Date Type Department Care Team Description 10/14/2024 4:29 PM AUTISM SPECIALIST - 10/14/2024 11:48 PM AUTISM SPECIALIST Emergency [facility] EMERGENCY DEPARTMENT [address] [place] [id number] Jaziel Mccullough MD Fall, initial encounter (Primary Dx); Closed fracture of left side of maxilla, initial encounter; Closed fracture of multiple ribs of right side, initial encounter; SOB (shortness of breath); Chest pain, unspecified type; Closed fracture of nasal bone, initial encounter; Closed fracture of incisor teeth, initial encounter Discharge Disposition: Home or Self Care 10/14/2024 Travel from Last 3 Months Social History Tobacco Use Types Packs/Day Years Used Date Smoking Tobacco: Never Assessed Sex and Gender Information Value Date Recorded Sex Assigned at Not on file Gender Identity Not on file Sexual Orientation Not on file Last Filed Vital Signs Vital Sign Reading Time Taken Comments Blood Pressure 146/78 10/14/2024 10:30 PM AUTISM SPECIALIST Pulse 51 10/14/2024 10:30 PM AUTISM SPECIALIST Temperature 36.3 C (97.3 F) 10/14/2024 4:29 PM AUTISM SPECIALIST Respiratory Rate 16 10/14/2024 10:30 PM AUTISM SPECIALIST Oxygen Saturation 95% 10/14/2024 10:30 PM AUTISM SPECIALIST Inhaled Oxygen Concentration - - Weight - - Height 172.7 cm (5' 8 ) 10/14/2024 4:29 PM AUTISM SPECIALIST Body Mass Index - - Plan of Treatment Health Maintenance Due Date Last Done Comments DTAP/TDAP/TD VACCINES (1 - Tdap) 01/03/1967 PNEUMOCOCCAL VACCINE 50+ (1 of 1 - PCV) 01/03/1998 ZOSTER VACCINE (1 of 2) 01/03/1998 Respiratory Syncytial Virus (RSV) Vaccine Pt: or over 60 yrs (1 - 1-dose 75+ series) 01/03/2023 DEPRESSION SCREENING 08/16/2024 MEDICARE AWV CALENDAR YEAR 2024 HEPATITIS C SCREENING Completed 05/04/2018 INFLUENZA VACCINE Completed 06/21/2024, , 05/11/2022, Additional history exists COVID-19 VACCINE Completed 08/19/2024, , 04/26/2022, Additional history exists HEPATITIS B VACCINE Aged Out No longe r eligible based on patient's age to complete this topic HIB VACCINE Aged Out No longer eligi ble based on patient's age to complete this topic HPV VACCINE Aged Out No longer eligi ble based on patient's age to complete this topic MENINGOCOCCAL (Group B) VACCINE SHARED DECISION-MAKING Aged Out No longer eligible based on patient's age to complete this topic MENINGOCOCCAL GROUPS A/C/Y/W VACCINE Aged Out No longer eligible based on patient's age to complete this topic Procedures Procedure Name Priority Date/Time Associated Diagnosis Comments CT LUMBAR SPINE WO CONTRAST STAT 10/14/2024 6:57 PM AUTISM SPECIALIST Fall, initial encounter Closed fracture of left side of maxilla, initial encounter Closed fracture of multiple ribs of right side, initial encounter CT THORACIC SPINE WO CONTRAST STAT 10/14/2024 6:57 PM AUTISM SPECIALIST Fall, initial encounter Closed fracture of left side of maxilla, initial encounter Closed fracture of multiple ribs of right side, initial encounter CT CHEST ABDOMEN PELVIS W CONT STAT 10/14/2024 6:57 PM AUTISM SPECIALIST Fall, initial encounter Closed fracture of left side of maxilla, initial encounter Closed fracture of multiple ribs of right side, initial encounter CT CERVICAL SPINE WO CONTRAST STAT 10/14/2024 6:57 PM AUTISM SPECIALIST Fall, initial encounter Closed fracture of left side of maxilla, initial encounter Closed fracture of multiple ribs of right side, initial encounter CT FACIAL BONES WO CONTRAST STAT 10/14/2024 6:57 PM AUTISM SPECIALIST Fall, initial encounter Closed fracture of left side of maxilla, initial encounter Closed fracture of multiple ribs of right side, initial encounter CT HEAD WO CONTRAST STAT 10/14/2024 6 :57 PM AUTISM SPECIALIST Fall, initial encounter Closed fracture of left side of maxilla, initial encounter Closed fracture of multiple ribs of right side, initial encounter TROPONIN-I HIGH SENSITIVE REFLEX 1HOUR Timed 10/14/2024 6:56 PM AUTISM SPECIALIST URINALYSIS REFLEX MICROSCOPIC REFLEX CULTURE STAT 10/14/2024 6:22 PM AUTISM SPECIALIST EKG 12-LEAD STAT 10/14/2024 6:13 PM AUTISM SPECIALIST Fall, initial encounter Closed fracture of left side of maxilla, initial encounter Closed fracture of multiple ribs of right side, initial encounter SOB (shortness of breath) Chest pain, unspecified type TYPE + SCREEN PANEL STAT 10/14/2024 5 :22 PM AUTISM SPECIALIST TROPONIN-I HIGH SENSITIVE BASELINE + 1HR STAT 10/14/2024 5:22 PM AUTISM SPECIALIST BASIC METABOLIC PANEL (CALCIUM TOTAL) STAT 10/14/2024 5:22 PM AUTISM SPECIALIST CBC W AUTO DIFFERENTIAL STAT 10/14/2024 5:22 PM AUTISM SPECIALIST CK BLOOD STAT 10/14/2024 5:22 PM AUTISM SPECIALIST ALCOHOL ETHYL BLOOD STAT 10/14/2024 5 :22 PM AUTISM SPECIALIST from Last 3 Months Results * CT CHEST ABDOMEN PELVIS W CONT - Abdomen-pelvis trauma, blunt or penetrating (10/14/2024 6:57 PM AUTISM SPECIALIST) Anatomical Region Laterality Modality Chest, Abdomen, Pelvis Computed Tomography 10/14/2024 7:01 PM AUTISM SPECIALIST Impressions 10/15/2024 7:57 AM AUTISM SPECIALIST Impression: 1.No acute injury in the chest, abdomen or pelvis. 2.Nodular liver surface, which may be seen with cirrhosis. Report drafted by Joe Gomez (resident) I, Danielito Scott MD have personally reviewed and interpreted this examination/study. > Interpreting Provider: Danielito Scott MD on 10/15/2024 7:57 AM Narrative 10/15/2024 7:57 AM AUTISM SPECIALIST Procedure Information DATE: 10/14/2024 6:58 PM EXAMINATION: Computed tomography (CT) of the chest, abdomen, and pelvis with contrast TECHNIQUE: CT of the chest, abdomen, and pelvis was performed after the uneventful administration of 100 mL of Isovue 370 intravenous contrast according to standard protocol. Clinical Information HISTORY: Trauma COMPARISON: None. Findings Chest: Lines/Tubes: None. Lower neck and axillae: Normal. Mediastinum and Kayla: No enlarged lymph nodes are present. Heart and Pericardium: The cardiac chambers are normal in size. No pericardial fluid or thickening is present. Pulmonary Parenchyma and Airways: Mild bilateral dependent atelectasis. Pleural Space: No pleural effusion or pneumothorax is present. Abdomen/pelvis: Hepatobiliary: Nodular surface of the liver, which may be seen with cirrhosis. Gallbladder is normal. No intrahepatic or extra hepatic biliary dilatation. Pancreas: Normal. Spleen: Upper limits of normal in size measuring 14.3 cm. Kidneys: A right renal cyst measuring 1.9 cm. No hydronephrosis or nephrolithiasis. Adrenals: Normal. Retroperitoneum: Normal. Gastrointestinal: Colonic diverticulosis including the distal transverse colon, descending and sigmoid colon. Mesentery: Normal. Pelvic Structures: Normal. Vasculature: Scattered atherosclerotic vasculature changes. Bones: Moderate spinal degenerative changes. 3 mm anterolisthesis at C7-T1, 2 mm retrolisthesis at T1-T2. Grade 1 anterolisthesis at L3-4 and L4-5. 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 Chronic right rib fractures. Soft tissues: Normal. Procedure Note Danielito Scott MD - 10/15/2024 Procedure Information DATE: 10/14/2024 6:58 PM EXAMINATION: Computed tomography (CT) of the chest, abdomen, and pelvis with contrast TECHNIQUE: CT of the chest, abdomen, and pelvis was performed after the uneventful administration of 100 mL of Isovue 370 intravenous contrast according to standard protocol. Clinical Information HISTORY: Trauma COMPARISON: None. Findings Chest: Lines/Tubes: None. Lower neck and axillae: Normal. Mediastinum and Kayla: No enlarged lymph nodes are present. Heart and Pericardium: The cardiac chambers are normal in size. No pericardial fluid orthickening is present. Pulmonary Parenchyma and Airways: Mild bilateral dependent atelectasis. Pleural Space: No pleural effusion or pneumothorax is present. Abdomen/pelvis: Hepatobiliary: Nodular surface of the liver, which may be seen with cirrhosis. Gallbladder is normal. No intrahepatic or extra hepatic biliarydilatation. Pancreas: Normal. Spleen: Upper limits of normal in size measuring 14.3 cm. Kidneys: A right renal cyst measuring 1.9 cm. No hydronephrosis ornephrolithiasis. Adrenals: Normal. Retroperitoneum: Normal. Gastrointestinal: Colonic diverticulosis including the distal transverse colon, descending and sigmoid colon. Mesentery: Normal. Pelvic Structures: Normal. Vasculature: Scattered atherosclerotic vasculature changes. Bones: Moderate spinal degenerative changes. 3 mm anterolisthesis at C7-T1, 2mm retrolisthesis at T1-T2. 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 Chronic right rib fractures. Soft tissues: Normal. Impression: 1.No acute injury in the chest, abdomen or pelvis. 2.Nodular liver surface, which may be seen with cirrhosis. Report drafted by Joe Gomez (resident) I, Danielito Scott MD have personally reviewed and interpreted this examination/study. > Interpreting Provider: Danielito Scott MD on 10/15/2024 7:57 AM Jaziel Mccullough MD CT ORDERABLES * CT LUMBAR SPINE WO CONTRAST - T/L-spine trauma, Spine fracture (10/14/2024 6:57 PM AUTISM SPECIALIST) Anatomical Region Laterality Modality Spine Computed Tomogra phy 10/14/2024 6:49 PM AUTISM SPECIALIST Impressions 10/14/2024 7:58 PM AUTISM SPECIALIST IMPRESSION: 1.No acute intracranial hemorrhage, midline shift, or significant mass effect. 2.Acute, mildly displaced fracture of the left nasal bone with soft tissue swelling. Questionable, nondisplaced fracture of the left central alveolar maxilla with adjacent broken left central incisor. Please correlate with physical examination. 3.No evidence of acute fracture in the cervical, thoracic, or lumbar spine. 4.Degenerative changes throughout the spine as detailed above. Report dictated by Joaquina Patterson MD (residential worker). I, Kodak Patel MD have personally reviewed and interpreted this examination/study. > Interpreting Provider: Kodak Patel MD on 10/14/2024 7:58 PM Narrative 10/14/2024 7:58 PM AUTISM SPECIALIST PROCEDURE: CT HEAD WO CONTRAST, CT FACIAL BONES WO CONTRAST, CT CERVICAL SPINE WO CONTRAST, CT THORACIC SPINE WO CONTRAST, CT LUMBAR SPINE WO CONTRAST, DATE/TIME OF EXAM: 10/14/2024 6:21 PM, LOCATION [facility] INDICATION: Trauma EXAMINATION: 1. CT OF THE HEAD WITHOUT CONTRAST 2. CT OF THE MAXILLOFACIAL BONES WITHOUT CONTRAST 3. CT OF THE CERVICAL SPINE WITHOUT CONTRAST 4. CT OF THE THORACIC SPINE WITHOUT CONTRAST 5. CT OF THE LUMBAR SPINE WITHOUT CONTRAST ADDITIONAL CLINICAL INFORMATION: Ordering Provider Reason For Exam: Technologist Note: Additional: TECHNIQUE: CT of the head, cervical spine, and maxillofacial bones, orbits, and paranasal sinuses was performed without contrast according to standard protocol. Reformatted axial, sagittal, and coronal images of the thoracic and lumbar spine were obtained by the technologist from a concurrently performed body CT and sent to the workstation for review. CT dose reduction technique was used, including Automated Exposure Control. COMPARISON: No prior study is available for comparison at the time of this dictation. FINDINGS: HEAD: No acute intra- or extra-axial hemorrhage is identified. There is moderate cerebral volume loss with associated ex vacuo ventricular dilatation. Beam hardening artifact due to dental fillings is present surrounding the foramen magnum. Considering that, the basilar cisterns are patent. No mass effect or midline shift is seen. There is no visible contusion or infarction. The ramos-white matter differentiation is normal. Periventricular white matter hypoattenuation is indicative of chronic small vessel ischemic disease. There is vascular calcification of the carotid siphons. No acute calvarial fracture is identified. MAXILLOFACIAL: The orbits appear normal. There is mild postoperative thickening of the right S1 sinus. The sinuses are clear.. The hard palate, mandible, and temporomandibular joints appear intact. The patient is partially edentulous in maxilla and mandible. The mastoid air cells are clear. No soft tissue abnormality is identified. Multiple missing teeth. There is a fracture of the left maxillary central incisor. Lucency of the alveolar maxilla adjacent to the left central incisor could represent nondisplaced acute fracture. Mild left nasal soft tissue swelling with nondisplaced fracture of the left nasal bone. The nose there appears to the left side and there is mild soft tissue swelling of the nose especially on the left side. CERVICAL SPINE: There is straightening of the usual cervical lordosis. No evidence of acute fracture. Degenerative changes are present throughout the vertebral bodies with sclerosis, subchondral cysts and osteophyte formation at multiple levels. Other than advanced middle atlantoaxial joint osteoarthritis, the craniocervical junction appears normal. There is T11 advanced degenerative disc disease. Central canal stenosis mildly present C3-C4 and C6-C7 due to posterior endplate osteophytosis. There are varying degrees of advanced facet osteoarthritis. There are severe bilateral uncovertebral joint osteoarthritis at C3-C4 and varying degrees of mild uncovertebral joint osteoarthritis with the same degree of neural foraminal stenosis at these levels. There is atherosclerotic calcification of the carotid bifurcations. THORACIC SPINE: Grade 1 anterolisthesis of T1 on T2 due to degenerative changes, mild dextrocurvature of the thoracic spine a normal kyphosis of thoracic spine are present. Vertebral bodies are normal in height without evidence of acute fracture. There is moderate to severe degenerative disc disease most notable from T6 through T11. Vacuum phenomenon and Schmorl's nodes are present at multiple levels. No posterior disc abnormality, blood in central canal or central canal stenosis is seen. There are varying degrees of mild facet osteoarthritis. There are varying degrees of multilevel mild neural foraminal stenosis at multiple levels. There is atherosclerotic calcification of the thoracic aorta and its branch vessels. Chronic appearing right posterior rib deformities of the seventh through ninth ribs. LUMBAR SPINE: Grade 1 anterolisthesis of L4 on L5 due to severe facet osteoarthritis. Vertebral bodies are normal in height without evidence of acute fracture. There is mild degenerative disc disease. Mild bilateral lateral stenosis secondary to concentric posterior disc bulge and hypertrophy of ligamentum flavum is present at L3-L4 and moderate to severe bilateral lateral recesses stenosis at L4-L5. Advanced bilateral facet osteoarthritis at L4-L5 and L5-S1 and mild to moderate facet osteoarthritis of the upper lumbar spine are present. Moderate to severe neural foraminal stenosis at L4-L5 and L5-S1 due to facet arthropathy is present. There is atherosclerotic calcification of the abdominal aorta and its branch vessels. Partially visualized hypodensity of the right kidney likely represents a renal cyst. Brain injury guidelines: Skull fracture: No Subdural hematoma: No subdural hematoma. Epidural hematoma: No epidural hematoma. Intraparenchymal hemorrhage: No intraparenchymal hemorrhage. Subarachnoid hemorrhage: No subarachnoid hemorrhage. Intraventricular hemorrhage: No. Midline shift: No. Procedure Note Kodak Patel MD - 10/14/2024 PROCEDURE: CT HEAD WO CONTRAST, CT FACIAL BONES WO CONTRAST, CTCERVICAL SPINE WO CONTRAST, CT THORACIC SPINE WO CONTRAST, CT LUMBAR SPINE WO CONTRAST, DATE/TIME OF EXAM: 10/14/2024 6:21 PM, LOCATION [facility] INDICATION: Trauma EXAMINATION: 1. CT OF THE HEAD WITHOUT CONTRAST 2. CT OF THE MAXILLOFACIAL BONES WITHOUT CONTRAST 3. CT OF THE CERVICAL SPINE WITHOUT CONTRAST 4. CT OF THE THORACIC SPINE WITHOUT CONTRAST 5. CT OF THE LUMBAR SPINE WITHOUT CONTRAST ADDITIONAL CLINICAL INFORMATION: Ordering Provider Reason For Exam: Technologist Note: Additional: TECHNIQUE: CT of the head, cervical spine, and maxillofacial bones,orbits, and paranasal sinuses was performed without contrast according tostandard protocol. Reformatted axial, sagittal, and coronal images of thethoracic and lumbar spine were obtained by the technologist from a concurrently performed body CT and sent to the workstation for review. CT dosereduction technique was used, including Automated Exposure Control. COMPARISON: No prior study is available for comparison at the time ofthis dictation. FINDINGS: HEAD: No acute intra- or extra-axial hemorrhage is identified. There ismoderate cerebral volume loss with associated ex vacuo ventricular dilatation.Beam hardening artifact due to dental fillings is present surrounding the foramen magnum. Considering that, the basilar cisterns are patent. Nomass effect or midline shift is seen. There is no visible contusion or infarction. The ramos-white matter differentiation is normal. Periventricular white matter hypoattenuation is indicative of chronicsmall vessel ischemic disease. There is vascular calcification of the carotid siphons. No acute calvarial fracture is identified. MAXILLOFACIAL: The orbits appear normal. There is mild postoperative thickening of the right S1 sinus. The sinuses are clear.. The hard palate, mandible, and temporomandibular joints appear intact. The patient is partiallyedentulous in maxilla and mandible. The mastoid air cells are clear. No soft tissue abnormality is identified. Multiple missing teeth. There is a fractureof the left maxillary central incisor. Lucency of the alveolar maxilla adjacent to the left central incisor could represent nondisplaced acute fracture. Mild left nasal soft tissue swelling with nondisplacedfracture of the left nasal bone. The nose there appears to the left side andthere is mild soft tissue swelling of the nose especially on the left side. CERVICAL SPINE: There is straightening of the usual cervical lordosis. No evidence ofacute fracture. Degenerative changes are present throughout the vertebralbodies with sclerosis, subchondral cysts and osteophyte formation at multiple levels. Other than advanced middle atlantoaxial joint osteoarthritis,the craniocervical junction appears normal. There is T11 advanceddegenerative disc disease. Central canal stenosis mildly present C3-C4 and C6-C7 dueto posterior endplate osteophytosis. There are varying degrees of advanced facet osteoarthritis. There are severe bilateral uncovertebral joint osteoarthritis at C3-C4 and varying degrees of mild uncovertebral joint osteoarthritis with the same degree of neural foraminal stenosis atthese levels. There is atherosclerotic calcification of the carotidbifurcations. THORACIC SPINE: Grade 1 anterolisthesis of T1 on T2 due to degenerative changes, mild dextrocurvature of the thoracic spine a normal kyphosis of thoracicspine are present. Vertebral bodies are normal in height without evidence of acute fracture. There is moderate to severe degenerative disc diseasemost notable from T6 through T11. Vacuum phenomenon and Schmorl's nodes are present at multiple levels. No posterior disc abnormality, blood in central canal or central canal stenosis is seen. There are varyingdegrees of mild facet osteoarthritis. There are varying degrees of multilevelmild neural foraminal stenosis at multiple levels. There is atherosclerotic calcification of the thoracic aorta and its branch vessels. Chronic appearing right posterior rib deformities of the seventh through ninth ribs. LUMBAR SPINE: Grade 1 anterolisthesis of L4 on L5 due to severe facet osteoarthritis. Vertebral bodies are normal in height without evidence of acutefracture. There is mild degenerative disc disease. Mild bilateral lateral stenosis secondary to concentric posterior disc bulge and hypertrophy ofligamentum flavum is present at L3-L4 and moderate to severe bilateral lateral recesses stenosis at L4-L5. Advanced bilateral facet osteoarthritis at L4-L5 and L5-S1 and mild to moderate facet osteoarthritis of the upper lumbar spine are present. Moderate to severe neural foraminal stenosisat L4-L5 and L5-S1 due to facet arthropathy is present. There is atherosclerotic calcification of the abdominal aorta and its branch vessels. Partially visualized hypodensity of the right kidney likely represents a renal cyst. Brain injury guidelines: Skull fracture: No Subdural hematoma: No subdural hematoma. Epidural hematoma: No epidural hematoma. Intraparenchymal hemorrhage: No intraparenchymal hemorrhage. Subarachnoid hemorrhage: No subarachnoid hemorrhage. Intraventricular hemorrhage: No. Midline shift: No. IMPRESSION: 1.No acute intracranial hemorrhage, midline shift, or significant mass effect. 2.Acute, mildly displaced fracture of the left nasal bone with softtissue swelling. Questionable, nondisplaced fracture of the left centralalveolar maxilla with adjacent broken left central incisor. Please correlate with physical examination. 3.No evidence of acute fracture in the cervical, thoracic, or lumbarspine. 4.Degenerative changes throughout the spine as detailed above. Report dictated by Joaquina Patterson MD (residential worker). I, Kodak Patel MD have personally reviewed and interpreted this examination/study. > Interpreting Provider: Kodak Patel MD on 10/14/2024 7:58 PM Jaziel Mccullough MD CT ORDERABLES * CT THORACIC SPINE WO CONTRAST - T/L-spine trauma, spine fracture (10/14/2024 6:57 PM AUTISM SPECIALIST) Anatomical Region Laterality Modality Spine Computed Tomogra phy 10/14/2024 6:49 PM AUTISM SPECIALIST Impressions 10/14/2024 7:58 PM AUTISM SPECIALIST IMPRESSION: 1.No acute intracranial hemorrhage, midline shift, or significant mass effect. 2.Acute, mildly displaced fracture of the left nasal bone with soft tissue swelling. Questionable, nondisplaced fracture of the left central alveolar maxilla with adjacent broken left central incisor. Please correlate with physical examination. 3.No evidence of acute fracture in the cervical, thoracic, or lumbar spine. 4.Degenerative changes throughout the spine as detailed above. Report dictated by Joaquina Patterson MD (residential worker). IKodak MD have personally reviewed and interpreted this examination/study. > Interpreting Provider: Kodak Patel MD on 10/14/2024 7:58 PM Narrative 10/14/2024 7:58 PM AUTISM SPECIALIST PROCEDURE: CT HEAD WO CONTRAST, CT FACIAL BONES WO CONTRAST, CT CERVICAL SPINE WO CONTRAST, CT THORACIC SPINE WO CONTRAST, CT LUMBAR SPINE WO CONTRAST, DATE/TIME OF EXAM: 10/14/2024 6:21 PM, LOCATION [facility] INDICATION: Trauma EXAMINATION: 1. CT OF THE HEAD WITHOUT CONTRAST 2. CT OF THE MAXILLOFACIAL BONES WITHOUT CONTRAST 3. CT OF THE CERVICAL SPINE WITHOUT CONTRAST 4. CT OF THE THORACIC SPINE WITHOUT CONTRAST 5. CT OF THE LUMBAR SPINE WITHOUT CONTRAST ADDITIONAL CLINICAL INFORMATION: Ordering Provider Reason For Exam: Technologist Note: Additional: TECHNIQUE: CT of the head, cervical spine, and maxillofacial bones, orbits, and paranasal sinuses was performed without contrast according to standard protocol. Reformatted axial, sagittal, and coronal images of the thoracic and lumbar spine were obtained by the technologist from a concurrently performed body CT and sent to the workstation for review. CT dose reduction technique was used, including Automated Exposure Control. COMPARISON: No prior study is available for comparison at the time of this dictation. FINDINGS: HEAD: No acute intra- or extra-axial hemorrhage is identified. There is moderate cerebral volume loss with associated ex vacuo ventricular dilatation. Beam hardening artifact due to dental fillings is present surrounding the foramen magnum. Considering that, the basilar cisterns are patent. No mass effect or midline shift is seen. There is no visible contusion or infarction. The ramos-white matter differentiation is normal. Periventricular white matter hypoattenuation is indicative of chronic small vessel ischemic disease. There is vascular calcification of the carotid siphons. No acute calvarial fracture is identified. MAXILLOFACIAL: The orbits appear normal. There is mild postoperative thickening of the right S1 sinus. The sinuses are clear.. The hard palate, mandible, and temporomandibular joints appear intact. The patient is partially edentulous in maxilla and mandible. The mastoid air cells are clear. No soft tissue abnormality is identified. Multiple missing teeth. There is a fracture of the left maxillary central incisor. Lucency of the alveolar maxilla adjacent to the left central incisor could represent nondisplaced acute fracture. Mild left nasal soft tissue swelling with nondisplaced fracture of the left nasal bone. The nose there appears to the left side and there is mild soft tissue swelling of the nose especially on the left side. CERVICAL SPINE: There is straightening of the usual cervical lordosis. No evidence of acute fracture. Degenerative changes are present throughout the vertebral bodies with sclerosis, subchondral cysts and osteophyte formation at multiple levels. Other than advanced middle atlantoaxial joint osteoarthritis, the craniocervical junction appears normal. There is T11 advanced degenerative disc disease. Central canal stenosis mildly present C3-C4 and C6-C7 due to posterior endplate osteophytosis. There are varying degrees of advanced facet osteoarthritis. There are severe bilateral uncovertebral joint osteoarthritis at C3-C4 and varying degrees of mild uncovertebral joint osteoarthritis with the same degree of neural foraminal stenosis at these levels. There is atherosclerotic calcification of the carotid bifurcations. THORACIC SPINE: Grade 1 anterolisthesis of T1 on T2 due to degenerative changes, mild dextrocurvature of the thoracic spine a normal kyphosis of thoracic spine are present. Vertebral bodies are normal in height without evidence of acute fracture. There is moderate to severe degenerative disc disease most notable from T6 through T11. Vacuum phenomenon and Schmorl's nodes are present at multiple levels. No posterior disc abnormality, blood in central canal or central canal stenosis is seen. There are varying degrees of mild facet osteoarthritis. There are varying degrees of multilevel mild neural foraminal stenosis at multiple levels. There is atherosclerotic calcification of the thoracic aorta and its branch vessels. Chronic appearing right posterior rib deformities of the seventh through ninth ribs. LUMBAR SPINE: Grade 1 anterolisthesis of L4 on L5 due to severe facet osteoarthritis. Vertebral bodies are normal in height without evidence of acute fracture. There is mild degenerative disc disease. Mild bilateral lateral stenosis secondary to concentric posterior disc bulge and hypertrophy of ligamentum flavum is present at L3-L4 and moderate to severe bilateral lateral recesses stenosis at L4-L5. Advanced bilateral facet osteoarthritis at L4-L5 and L5-S1 and mild to moderate facet osteoarthritis of the upper lumbar spine are present. Moderate to severe neural foraminal stenosis at L4-L5 and L5-S1 due to facet arthropathy is present. There is atherosclerotic calcification of the abdominal aorta and its branch vessels. Partially visualized hypodensity of the right kidney likely represents a renal cyst. Brain injury guidelines: Skull fracture: No Subdural hematoma: No subdural hematoma. Epidural hematoma: No epidural hematoma. Intraparenchymal hemorrhage: No intraparenchymal hemorrhage. Subarachnoid hemorrhage: No subarachnoid hemorrhage. Intraventricular hemorrhage: No. Midline shift: No. Procedure Note Kodak Patel MD - 10/14/2024 PROCEDURE: CT HEAD WO CONTRAST, CT FACIAL BONES WO CONTRAST, CTCERVICAL SPINE WO CONTRAST, CT THORACIC SPINE WO CONTRAST, CT LUMBAR SPINE WO CONTRAST, DATE/TIME OF EXAM: 10/14/2024 6:21 PM, LOCATION [facility] INDICATION: Trauma EXAMINATION: 1. CT OF THE HEAD WITHOUT CONTRAST 2. CT OF THE MAXILLOFACIAL BONES WITHOUT CONTRAST 3. CT OF THE CERVICAL SPINE WITHOUT CONTRAST 4. CT OF THE THORACIC SPINE WITHOUT CONTRAST 5. CT OF THE LUMBAR SPINE WITHOUT CONTRAST ADDITIONAL CLINICAL INFORMATION: Ordering Provider Reason For Exam: Technologist Note: Additional: TECHNIQUE: CT of the head, cervical spine, and maxillofacial bones,orbits, and paranasal sinuses was performed without contrast according tostandard protocol. Reformatted axial, sagittal, and coronal images of thethoracic and lumbar spine were obtained by the technologist from a concurrently performed body CT and sent to the workstation for review. CT dosereduction technique was used, including Automated Exposure Control. COMPARISON: No prior study is available for comparison at the time ofthis dictation. FINDINGS: HEAD: No acute intra- or extra-axial hemorrhage is identified. There ismoderate cerebral volume loss with associated ex vacuo ventricular dilatation.Beam hardening artifact due to dental fillings is present surrounding the foramen magnum. Considering that, the basilar cisterns are patent. Nomass effect or midline shift is seen. There is no visible contusion or infarction. The ramos-white matter differentiation is normal. Periventricular white matter hypoattenuation is indicative of chronicsmall vessel ischemic disease. There is vascular calcification of the carotid siphons. No acute calvarial fracture is identified. MAXILLOFACIAL: The orbits appear normal. There is mild postoperative thickening of the right S1 sinus. The sinuses are clear.. The hard palate, mandible, and temporomandibular joints appear intact. The patient is partiallyedentulous in maxilla and mandible. The mastoid air cells are clear. No soft tissue abnormality is identified. Multiple missing teeth. There is a fractureof the left maxillary central incisor. Lucency of the alveolar maxilla adjacent to the left central incisor could represent nondisplaced acute fracture. Mild left nasal soft tissue swelling with nondisplacedfracture of the left nasal bone. The nose there appears to the left side andthere is mild soft tissue swelling of the nose especially on the left side. CERVICAL SPINE: There is straightening of the usual cervical lordosis. No evidence ofacute fracture. Degenerative changes are present throughout the vertebralbodies with sclerosis, subchondral cysts and osteophyte formation at multiple levels. Other than advanced middle atlantoaxial joint osteoarthritis,the craniocervical junction appears normal. There is T11 advanceddegenerative disc disease. Central canal stenosis mildly present C3-C4 and C6-C7 dueto posterior endplate osteophytosis. There are varying degrees of advanced facet osteoarthritis. There are severe bilateral uncovertebral joint osteoarthritis at C3-C4 and varying degrees of mild uncovertebral joint osteoarthritis with the same degree of neural foraminal stenosis atthese levels. There is atherosclerotic calcification of the carotidbifurcations. THORACIC SPINE: Grade 1 anterolisthesis of T1 on T2 due to degenerative changes, mild dextrocurvature of the thoracic spine a normal kyphosis of thoracicspine are present. Vertebral bodies are normal in height without evidence of acute fracture. There is moderate to severe degenerative disc diseasemost notable from T6 through T11. Vacuum phenomenon and Schmorl's nodes are present at multiple levels. No posterior disc abnormality, blood in central canal or central canal stenosis is seen. There are varyingdegrees of mild facet osteoarthritis. There are varying degrees of multilevelmild neural foraminal stenosis at multiple levels. There is atherosclerotic calcification of the thoracic aorta and its branch vessels. Chronic appearing right posterior rib deformities of the seventh through ninth ribs. LUMBAR SPINE: Grade 1 anterolisthesis of L4 on L5 due to severe facet osteoarthritis. Vertebral bodies are normal in height without evidence of acutefracture. There is mild degenerative disc disease. Mild bilateral lateral stenosis secondary to concentric posterior disc bulge and hypertrophy ofligamentum flavum is present at L3-L4 and moderate to severe bilateral lateral recesses stenosis at L4-L5. Advanced bilateral facet osteoarthritis at L4-L5 and L5-S1 and mild to moderate facet osteoarthritis of the upper lumbar spine are present. Moderate to severe neural foraminal stenosisat L4-L5 and L5-S1 due to facet arthropathy is present. There is atherosclerotic calcification of the abdominal aorta and its branch vessels. Partially visualized hypodensity of the right kidney likely represents a renal cyst. Brain injury guidelines: Skull fracture: No Subdural hematoma: No subdural hematoma. Epidural hematoma: No epidural hematoma. Intraparenchymal hemorrhage: No intraparenchymal hemorrhage. Subarachnoid hemorrhage: No subarachnoid hemorrhage. Intraventricular hemorrhage: No. Midline shift: No. IMPRESSION: 1.No acute intracranial hemorrhage, midline shift, or significant mass effect. 2.Acute, mildly displaced fracture of the left nasal bone with softtissue swelling. Questionable, nondisplaced fracture of the left centralalveolar maxilla with adjacent broken left central incisor. Please correlate with physical examination. 3.No evidence of acute fracture in the cervical, thoracic, or lumbarspine. 4.Degenerative changes throughout the spine as detailed above. Report dictated by Joaquina Patterson MD (residential worker). I, Kodak Patel MD have personally reviewed and interpreted this examination/study. > Interpreting Provider: Kodak Patel MD on 10/14/2024 7:58 PM Jaziel Mccullough MD CT ORDERABLES * CT CERVICAL SPINE WO CONTRAST - C-Spine Trauma, Spine fracture (10/14/2024 6:57 PM AUTISM SPECIALIST) Anatomical Region Laterality Modality Spine Computed Tomogra phy 10/14/2024 6:49 PM AUTISM SPECIALIST Impressions 10/14/2024 7:58 PM AUTISM SPECIALIST IMPRESSION: 1.No acute intracranial hemorrhage, midline shift, or significant mass effect. 2.Acute, mildly displaced fracture of the left nasal bone with soft tissue swelling. Questionable, nondisplaced fracture of the left central alveolar maxilla with adjacent broken left central incisor. Please correlate with physical examination. 3.No evidence of acute fracture in the cervical, thoracic, or lumbar spine. 4.Degenerative changes throughout the spine as detailed above. Report dictated by Joaquina Patterson MD (residential worker). I, Kodak Patel MD have personally reviewed and interpreted this examination/study. > Interpreting Provider: Kodak Patel MD on 10/14/2024 7:58 PM Narrative 10/14/2024 7:58 PM AUTISM SPECIALIST PROCEDURE: CT HEAD WO CONTRAST, CT FACIAL BONES WO CONTRAST, CT CERVICAL SPINE WO CONTRAST, CT THORACIC SPINE WO CONTRAST, CT LUMBAR SPINE WO CONTRAST, DATE/TIME OF EXAM: 10/14/2024 6:21 PM, LOCATION [facility] INDICATION: Trauma EXAMINATION: 1. CT OF THE HEAD WITHOUT CONTRAST 2. CT OF THE MAXILLOFACIAL BONES WITHOUT CONTRAST 3. CT OF THE CERVICAL SPINE WITHOUT CONTRAST 4. CT OF THE THORACIC SPINE WITHOUT CONTRAST 5. CT OF THE LUMBAR SPINE WITHOUT CONTRAST ADDITIONAL CLINICAL INFORMATION: Ordering Provider Reason For Exam: Technologist Note: Additional: TECHNIQUE: CT of the head, cervical spine, and maxillofacial bones, orbits, and paranasal sinuses was performed without contrast according to standard protocol. Reformatted axial, sagittal, and coronal images of the thoracic and lumbar spine were obtained by the technologist from a concurrently performed body CT and sent to the workstation for review. CT dose reduction technique was used, including Automated Exposure Control. COMPARISON: No prior study is available for comparison at the time of this dictation. FINDINGS: HEAD: No acute intra- or extra-axial hemorrhage is identified. There is moderate cerebral volume loss with associated ex vacuo ventricular dilatation. Beam hardening artifact due to dental fillings is present surrounding the foramen magnum. Considering that, the basilar cisterns are patent. No mass effect or midline shift is seen. There is no visible contusion or infarction. The ramos-white matter differentiation is normal. Periventricular white matter hypoattenuation is indicative of chronic small vessel ischemic disease. There is vascular calcification of the carotid siphons. No acute calvarial fracture is identified. MAXILLOFACIAL: The orbits appear normal. There is mild postoperative thickening of the right S1 sinus. The sinuses are clear.. The hard palate, mandible, and temporomandibular joints appear intact. The patient is partially edentulous in maxilla and mandible. The mastoid air cells are clear. No soft tissue abnormality is identified. Multiple missing teeth. There is a fracture of the left maxillary central incisor. Lucency of the alveolar maxilla adjacent to the left central incisor could represent nondisplaced acute fracture. Mild left nasal soft tissue swelling with nondisplaced fracture of the left nasal bone. The nose there appears to the left side and there is mild soft tissue swelling of the nose especially on the left side. CERVICAL SPINE: There is straightening of the usual cervical lordosis. No evidence of acute fracture. Degenerative changes are present throughout the vertebral bodies with sclerosis, subchondral cysts and osteophyte formation at multiple levels. Other than advanced middle atlantoaxial joint osteoarthritis, the craniocervical junction appears normal. There is T11 advanced degenerative disc disease. Central canal stenosis mildly present C3-C4 and C6-C7 due to posterior endplate osteophytosis. There are varying degrees of advanced facet osteoarthritis. There are severe bilateral uncovertebral joint osteoarthritis at C3-C4 and varying degrees of mild uncovertebral joint osteoarthritis with the same degree of neural foraminal stenosis at these levels. There is atherosclerotic calcification of the carotid bifurcations. THORACIC SPINE: Grade 1 anterolisthesis of T1 on T2 due to degenerative changes, mild dextrocurvature of the thoracic spine a normal kyphosis of thoracic spine are present. Vertebral bodies are normal in height without evidence of acute fracture. There is moderate to severe degenerative disc disease most notable from T6 through T11. Vacuum phenomenon and Schmorl's nodes are present at multiple levels. No posterior disc abnormality, blood in central canal or central canal stenosis is seen. There are varying degrees of mild facet osteoarthritis. There are varying degrees of multilevel mild neural foraminal stenosis at multiple levels. There is atherosclerotic calcification of the thoracic aorta and its branch vessels. Chronic appearing right posterior rib deformities of the seventh through ninth ribs. LUMBAR SPINE: Grade 1 anterolisthesis of L4 on L5 due to severe facet osteoarthritis. Vertebral bodies are normal in height without evidence of acute fracture. There is mild degenerative disc disease. Mild bilateral lateral stenosis secondary to concentric posterior disc bulge and hypertrophy of ligamentum flavum is present at L3-L4 and moderate to severe bilateral lateral recesses stenosis at L4-L5. Advanced bilateral facet osteoarthritis at L4-L5 and L5-S1 and mild to moderate facet osteoarthritis of the upper lumbar spine are present. Moderate to severe neural foraminal stenosis at L4-L5 and L5-S1 due to facet arthropathy is present. There is atherosclerotic calcification of the abdominal aorta and its branch vessels. Partially visualized hypodensity of the right kidney likely represents a renal cyst. Brain injury guidelines: Skull fracture: No Subdural hematoma: No subdural hematoma. Epidural hematoma: No epidural hematoma. Intraparenchymal hemorrhage: No intraparenchymal hemorrhage. Subarachnoid hemorrhage: No subarachnoid hemorrhage. Intraventricular hemorrhage: No. Midline shift: No. Procedure Note Kodak Patel MD - 10/14/2024 PROCEDURE: CT HEAD WO CONTRAST, CT FACIAL BONES WO CONTRAST, CTCERVICAL SPINE WO CONTRAST, CT THORACIC SPINE WO CONTRAST, CT LUMBAR SPINE WO CONTRAST, DATE/TIME OF EXAM: 10/14/2024 6:21 PM, LOCATION [facility] INDICATION: Trauma EXAMINATION: 1. CT OF THE HEAD WITHOUT CONTRAST 2. CT OF THE MAXILLOFACIAL BONES WITHOUT CONTRAST 3. CT OF THE CERVICAL SPINE WITHOUT CONTRAST 4. CT OF THE THORACIC SPINE WITHOUT CONTRAST 5. CT OF THE LUMBAR SPINE WITHOUT CONTRAST ADDITIONAL CLINICAL INFORMATION: Ordering Provider Reason For Exam: Technologist Note: Additional: TECHNIQUE: CT of the head, cervical spine, and maxillofacial bones,orbits, and paranasal sinuses was performed without contrast according tostandard protocol. Reformatted axial, sagittal, and coronal images of thethoracic and lumbar spine were obtained by the technologist from a concurrently performed body CT and sent to the workstation for review. CT dosereduction technique was used, including Automated Exposure Control. COMPARISON: No prior study is available for comparison at the time ofthis dictation. FINDINGS: HEAD: No acute intra- or extra-axial hemorrhage is identified. There ismoderate cerebral volume loss with associated ex vacuo ventricular dilatation.Beam hardening artifact due to dental fillings is present surrounding the foramen magnum. Considering that, the basilar cisterns are patent. Nomass effect or midline shift is seen. There is no visible contusion or infarction. The ramos-white matter differentiation is normal. Periventricular white matter hypoattenuation is indicative of chronicsmall vessel ischemic disease. There is vascular calcification of the carotid siphons. No acute calvarial fracture is identified. MAXILLOFACIAL: The orbits appear normal. There is mild postoperative thickening of the right S1 sinus. The sinuses are clear.. The hard palate, mandible, and temporomandibular joints appear intact. The patient is partiallyedentulous in maxilla and mandible. The mastoid air cells are clear. No soft tissue abnormality is identified. Multiple missing teeth. There is a fractureof the left maxillary central incisor. Lucency of the alveolar maxilla adjacent to the left central incisor could represent nondisplaced acute fracture. Mild left nasal soft tissue swelling with nondisplacedfracture of the left nasal bone. The nose there appears to the left side andthere is mild soft tissue swelling of the nose especially on the left side. CERVICAL SPINE: There is straightening of the usual cervical lordosis. No evidence ofacute fracture. Degenerative changes are present throughout the vertebralbodies with sclerosis, subchondral cysts and osteophyte formation at multiple levels. Other than advanced middle atlantoaxial joint osteoarthritis,the craniocervical junction appears normal. There is T11 advanceddegenerative disc disease. Central canal stenosis mildly present C3-C4 and C6-C7 dueto posterior endplate osteophytosis. There are varying degrees of advanced facet osteoarthritis. There are severe bilateral uncovertebral joint osteoarthritis at C3-C4 and varying degrees of mild uncovertebral joint osteoarthritis with the same degree of neural foraminal stenosis atthese levels. There is atherosclerotic calcification of the carotidbifurcations. THORACIC SPINE: Grade 1 anterolisthesis of T1 on T2 due to degenerative changes, mild dextrocurvature of the thoracic spine a normal kyphosis of thoracicspine are present. Vertebral bodies are normal in height without evidence of acute fracture. There is moderate to severe degenerative disc diseasemost notable from T6 through T11. Vacuum phenomenon and Schmorl's nodes are present at multiple levels. No posterior disc abnormality, blood in central canal or central canal stenosis is seen. There are varyingdegrees of mild facet osteoarthritis. There are varying degrees of multilevelmild neural foraminal stenosis at multiple levels. There is atherosclerotic calcification of the thoracic aorta and its branch vessels. Chronic appearing right posterior rib deformities of the seventh through ninth ribs. LUMBAR SPINE: Grade 1 anterolisthesis of L4 on L5 due to severe facet osteoarthritis. Vertebral bodies are normal in height without evidence of acutefracture. There is mild degenerative disc disease. Mild bilateral lateral stenosis secondary to concentric posterior disc bulge and hypertrophy ofligamentum flavum is present at L3-L4 and moderate to severe bilateral lateral recesses stenosis at L4-L5. Advanced bilateral facet osteoarthritis at L4-L5 and L5-S1 and mild to moderate facet osteoarthritis of the upper lumbar spine are present. Moderate to severe neural foraminal stenosisat L4-L5 and L5-S1 due to facet arthropathy is present. There is atherosclerotic calcification of the abdominal aorta and its branch vessels. Partially visualized hypodensity of the right kidney likely represents a renal cyst. Brain injury guidelines: Skull fracture: No Subdural hematoma: No subdural hematoma. Epidural hematoma: No epidural hematoma. Intraparenchymal hemorrhage: No intraparenchymal hemorrhage. Subarachnoid hemorrhage: No subarachnoid hemorrhage. Intraventricular hemorrhage: No. Midline shift: No. IMPRESSION: 1.No acute intracranial hemorrhage, midline shift, or significant mass effect. 2.Acute, mildly displaced fracture of the left nasal bone with softtissue swelling. Questionable, nondisplaced fracture of the left centralalveolar maxilla with adjacent broken left central incisor. Please correlate with physical examination. 3.No evidence of acute fracture in the cervical, thoracic, or lumbarspine. 4.Degenerative changes throughout the spine as detailed above. Report dictated by Joaquina Patterson MD (residential worker). Kodak Valencia MD have personally reviewed and interpreted this examination/study. > Interpreting Provider: Kodak Patel MD on 10/14/2024 7:58 PM Jaziel Mccullough MD CT ORDERABLES * CT FACIAL BONES WO CONTRAST - Facial trauma, fx suspected, blunt (10/14/2024 6:57 PM AUTISM SPECIALIST) Anatomical Region Laterality Modality Head Computed Tomogra phy 10/14/2024 6:49 PM AUTISM SPECIALIST Impressions 10/14/2024 7:58 PM AUTISM SPECIALIST IMPRESSION: 1.No acute intracranial hemorrhage, midline shift, or significant mass effect. 2.Acute, mildly displaced fracture of the left nasal bone with soft tissue swelling. Questionable, nondisplaced fracture of the left central alveolar maxilla with adjacent broken left central incisor. Please correlate with physical examination. 3.No evidence of acute fracture in the cervical, thoracic, or lumbar spine. 4.Degenerative changes throughout the spine as detailed above. Report dictated by Joaquina Patterson MD (residential worker). Kodak Valencia MD have personally reviewed and interpreted this examination/study. > Interpreting Provider: Kodak Patel MD on 10/14/2024 7:58 PM Narrative 10/14/2024 7:58 PM AUTISM SPECIALIST PROCEDURE: CT HEAD WO CONTRAST, CT FACIAL BONES WO CONTRAST, CT CERVICAL SPINE WO CONTRAST, CT THORACIC SPINE WO CONTRAST, CT LUMBAR SPINE WO CONTRAST, DATE/TIME OF EXAM: 10/14/2024 6:21 PM, LOCATION [facility] INDICATION: Trauma EXAMINATION: 1. CT OF THE HEAD WITHOUT CONTRAST 2. CT OF THE MAXILLOFACIAL BONES WITHOUT CONTRAST 3. CT OF THE CERVICAL SPINE WITHOUT CONTRAST 4. CT OF THE THORACIC SPINE WITHOUT CONTRAST 5. CT OF THE LUMBAR SPINE WITHOUT CONTRAST ADDITIONAL CLINICAL INFORMATION: Ordering Provider Reason For Exam: Technologist Note: Additional: TECHNIQUE: CT of the head, cervical spine, and maxillofacial bones, orbits, and paranasal sinuses was performed without contrast according to standard protocol. Reformatted axial, sagittal, and coronal images of the thoracic and lumbar spine were obtained by the technologist from a concurrently performed body CT and sent to the workstation for review. CT dose reduction technique was used, including Automated Exposure Control. COMPARISON: No prior study is available for comparison at the time of this dictation. FINDINGS: HEAD: No acute intra- or extra-axial hemorrhage is identified. There is moderate cerebral volume loss with associated ex vacuo ventricular dilatation. Beam hardening artifact due to dental fillings is present surrounding the foramen magnum. Considering that, the basilar cisterns are patent. No mass effect or midline shift is seen. There is no visible contusion or infarction. The ramos-white matter differentiation is normal. Periventricular white matter hypoattenuation is indicative of chronic small vessel ischemic disease. There is vascular calcification of the carotid siphons. No acute calvarial fracture is identified. MAXILLOFACIAL: The orbits appear normal. There is mild postoperative thickening of the right S1 sinus. The sinuses are clear.. The hard palate, mandible, and temporomandibular joints appear intact. The patient is partially edentulous in maxilla and mandible. The mastoid air cells are clear. No soft tissue abnormality is identified. Multiple missing teeth. There is a fracture of the left maxillary central incisor. Lucency of the alveolar maxilla adjacent to the left central incisor could represent nondisplaced acute fracture. Mild left nasal soft tissue swelling with nondisplaced fracture of the left nasal bone. The nose there appears to the left side and there is mild soft tissue swelling of the nose especially on the left side. CERVICAL SPINE: There is straightening of the usual cervical lordosis. No evidence of acute fracture. Degenerative changes are present throughout the vertebral bodies with sclerosis, subchondral cysts and osteophyte formation at multiple levels. Other than advanced middle atlantoaxial joint osteoarthritis, the craniocervical junction appears normal. There is T11 advanced degenerative disc disease. Central canal stenosis mildly present C3-C4 and C6-C7 due to posterior endplate osteophytosis. There are varying degrees of advanced facet osteoarthritis. There are severe bilateral uncovertebral joint osteoarthritis at C3-C4 and varying degrees of mild uncovertebral joint osteoarthritis with the same degree of neural foraminal stenosis at these levels. There is atherosclerotic calcification of the carotid bifurcations. THORACIC SPINE: Grade 1 anterolisthesis of T1 on T2 due to degenerative changes, mild dextrocurvature of the thoracic spine a normal kyphosis of thoracic spine are present. Vertebral bodies are normal in height without evidence of acute fracture. There is moderate to severe degenerative disc disease most notable from T6 through T11. Vacuum phenomenon and Schmorl's nodes are present at multiple levels. No posterior disc abnormality, blood in central canal or central canal stenosis is seen. There are varying degrees of mild facet osteoarthritis. There are varying degrees of multilevel mild neural foraminal stenosis at multiple levels. There is atherosclerotic calcification of the thoracic aorta and its branch vessels. Chronic appearing right posterior rib deformities of the seventh through ninth ribs. LUMBAR SPINE: Grade 1 anterolisthesis of L4 on L5 due to severe facet osteoarthritis. Vertebral bodies are normal in height without evidence of acute fracture. There is mild degenerative disc disease. Mild bilateral lateral stenosis secondary to concentric posterior disc bulge and hypertrophy of ligamentum flavum is present at L3-L4 and moderate to severe bilateral lateral recesses stenosis at L4-L5. Advanced bilateral facet osteoarthritis at L4-L5 and L5-S1 and mild to moderate facet osteoarthritis of the upper lumbar spine are present. Moderate to severe neural foraminal stenosis at L4-L5 and L5-S1 due to facet arthropathy is present. There is atherosclerotic calcification of the abdominal aorta and its branch vessels. Partially visualized hypodensity of the right kidney likely represents a renal cyst. Brain injury guidelines: Skull fracture: No Subdural hematoma: No subdural hematoma. Epidural hematoma: No epidural hematoma. Intraparenchymal hemorrhage: No intraparenchymal hemorrhage. Subarachnoid hemorrhage: No subarachnoid hemorrhage. Intraventricular hemorrhage: No. Midline shift: No. Procedure Note Kodak Patel MD - 10/14/2024 PROCEDURE: CT HEAD WO CONTRAST, CT FACIAL BONES WO CONTRAST, CTCERVICAL SPINE WO CONTRAST, CT THORACIC SPINE WO CONTRAST, CT LUMBAR SPINE WO CONTRAST, DATE/TIME OF EXAM: 10/14/2024 6:21 PM, LOCATION [facility] INDICATION: Trauma EXAMINATION: 1. CT OF THE HEAD WITHOUT CONTRAST 2. CT OF THE MAXILLOFACIAL BONES WITHOUT CONTRAST 3. CT OF THE CERVICAL SPINE WITHOUT CONTRAST 4. CT OF THE THORACIC SPINE WITHOUT CONTRAST 5. CT OF THE LUMBAR SPINE WITHOUT CONTRAST ADDITIONAL CLINICAL INFORMATION: Ordering Provider Reason For Exam: Technologist Note: Additional: TECHNIQUE: CT of the head, cervical spine, and maxillofacial bones,orbits, and paranasal sinuses was performed without contrast according tostandard protocol. Reformatted axial, sagittal, and coronal images of thethoracic and lumbar spine were obtained by the technologist from a concurrently performed body CT and sent to the workstation for review. CT dosereduction technique was used, including Automated Exposure Control. COMPARISON: No prior study is available for comparison at the time ofthis dictation. FINDINGS: HEAD: No acute intra- or extra-axial hemorrhage is identified. There ismoderate cerebral volume loss with associated ex vacuo ventricular dilatation.Beam hardening artifact due to dental fillings is present surrounding the foramen magnum. Considering that, the basilar cisterns are patent. Nomass effect or midline shift is seen. There is no visible contusion or infarction. The ramos-white matter differentiation is normal. Periventricular white matter hypoattenuation is indicative of chronicsmall vessel ischemic disease. There is vascular calcification of the carotid siphons. No acute calvarial fracture is identified. MAXILLOFACIAL: The orbits appear normal. There is mild postoperative thickening of the right S1 sinus. The sinuses are clear.. The hard palate, mandible, and temporomandibular joints appear intact. The patient is partiallyedentulous in maxilla and mandible. The mastoid air cells are clear. No soft tissue abnormality is identified. Multiple missing teeth. There is a fractureof the left maxillary central incisor. Lucency of the alveolar maxilla adjacent to the left central incisor could represent nondisplaced acute fracture. Mild left nasal soft tissue swelling with nondisplacedfracture of the left nasal bone. The nose there appears to the left side andthere is mild soft tissue swelling of the nose especially on the left side. CERVICAL SPINE: There is straightening of the usual cervical lordosis. No evidence ofacute fracture. Degenerative changes are present throughout the vertebralbodies with sclerosis, subchondral cysts and osteophyte formation at multiple levels. Other than advanced middle atlantoaxial joint osteoarthritis,the craniocervical junction appears normal. There is T11 advanceddegenerative disc disease. Central canal stenosis mildly present C3-C4 and C6-C7 dueto posterior endplate osteophytosis. There are varying degrees of advanced facet osteoarthritis. There are severe bilateral uncovertebral joint osteoarthritis at C3-C4 and varying degrees of mild uncovertebral joint osteoarthritis with the same degree of neural foraminal stenosis atthese levels. There is atherosclerotic calcification of the carotidbifurcations. THORACIC SPINE: Grade 1 anterolisthesis of T1 on T2 due to degenerative changes, mild dextrocurvature of the thoracic spine a normal kyphosis of thoracicspine are present. Vertebral bodies are normal in height without evidence of acute fracture. There is moderate to severe degenerative disc diseasemost notable from T6 through T11. Vacuum phenomenon and Schmorl's nodes are present at multiple levels. No posterior disc abnormality, blood in central canal or central canal stenosis is seen. There are varyingdegrees of mild facet osteoarthritis. There are varying degrees of multilevelmild neural foraminal stenosis at multiple levels. There is atherosclerotic calcification of the thoracic aorta and its branch vessels. Chronic appearing right posterior rib deformities of the seventh through ninth ribs. LUMBAR SPINE: Grade 1 anterolisthesis of L4 on L5 due to severe facet osteoarthritis. Vertebral bodies are normal in height without evidence of acutefracture. There is mild degenerative disc disease. Mild bilateral lateral stenosis secondary to concentric posterior disc bulge and hypertrophy ofligamentum flavum is present at L3-L4 and moderate to severe bilateral lateral recesses stenosis at L4-L5. Advanced bilateral facet osteoarthritis at L4-L5 and L5-S1 and mild to moderate facet osteoarthritis of the upper lumbar spine are present. Moderate to severe neural foraminal stenosisat L4-L5 and L5-S1 due to facet arthropathy is present. There is atherosclerotic calcification of the abdominal aorta and its branch vessels. Partially visualized hypodensity of the right kidney likely represents a renal cyst. Brain injury guidelines: Skull fracture: No Subdural hematoma: No subdural hematoma. Epidural hematoma: No epidural hematoma. Intraparenchymal hemorrhage: No intraparenchymal hemorrhage. Subarachnoid hemorrhage: No subarachnoid hemorrhage. Intraventricular hemorrhage: No. Midline shift: No. IMPRESSION: 1.No acute intracranial hemorrhage, midline shift, or significant mass effect. 2.Acute, mildly displaced fracture of the left nasal bone with softtissue swelling. Questionable, nondisplaced fracture of the left centralalveolar maxilla with adjacent broken left central incisor. Please correlate with physical examination. 3.No evidence of acute fracture in the cervical, thoracic, or lumbarspine. 4.Degenerative changes throughout the spine as detailed above. Report dictated by Joaquina Patterson MD (residential worker). Kodak Valencia MD have personally reviewed and interpreted this examination/study. > Interpreting Provider: Kodak Patel MD on 10/14/2024 7:58 PM Jaziel Mccullough MD CT ORDERABLES * CT HEAD WO CONTRAST - Head Trauma, CSF leak, mental status changes (10/14/2024 6:57 PM AUTISM SPECIALIST) Anatomical Region Laterality Modality Head Computed Tomogra phy 10/14/2024 6:49 PM AUTISM SPECIALIST Impressions 10/14/2024 7:58 PM AUT[facility] SPECIALIST IMPRESSION: 1.No acute intracranial hemorrhage, midline shift, or significant mass effect. 2.Acute, mildly displaced fracture of the left nasal bone with soft tissue swelling. Questionable, nondisplaced fracture of the left central alveolar maxilla with adjacent broken left central incisor. Please correlate with physical examination. 3.No evidence of acute fracture in the cervical, thoracic, or lumbar spine. 4.Degenerative changes throughout the spine as detailed above. Report dictated by Joaquina Patterson MD (residential worker). Kodak Valencia MD have personally reviewed and interpreted this examination/study. > Interpreting Provider: Kodak Patel MD on 10/14/2024 7:58 PM Narrative 10/14/2024 7:58 PM [facility] SPECIALIST PROCEDURE: CT HEAD WO CONTRAST, CT FACIAL BONES WO CONTRAST, CT CERVICAL SPINE WO CONTRAST, CT THORACIC SPINE WO CONTRAST, CT LUMBAR SPINE WO CONTRAST, DATE/TIME OF EXAM: 10/14/2024 6:21 PM, LOCATION [facility] INDICATION: Trauma EXAMINATION: 1. CT OF THE HEAD WITHOUT CONTRAST 2. CT OF THE MAXILLOFACIAL BONES WITHOUT CONTRAST 3. CT OF THE CERVICAL SPINE WITHOUT CONTRAST 4. CT OF THE THORACIC SPINE WITHOUT CONTRAST 5. CT OF THE LUMBAR SPINE WITHOUT CONTRAST ADDITIONAL CLINICAL INFORMATION: Ordering Provider Reason For Exam: Technologist Note: Additional: TECHNIQUE: CT of the head, cervical spine, and maxillofacial bones, orbits, and paranasal sinuses was performed without contrast according to standard protocol. Reformatted axial, sagittal, and coronal images of the thoracic and lumbar spine were obtained by the technologist from a concurrently performed body CT and sent to the workstation for review. CT dose reduction technique was used, including Automated Exposure Control. COMPARISON: No prior study is available for comparison at the time of this dictation. FINDINGS: HEAD: No acute intra- or extra-axial hemorrhage is identified. There is moderate cerebral volume loss with associated ex vacuo ventricular dilatation. Beam hardening artifact due to dental fillings is present surrounding the foramen magnum. Considering that, the basilar cisterns are patent. No mass effect or midline shift is seen. There is no visible contusion or infarction. The ramos-white matter differentiation is normal. Periventricular white matter hypoattenuation is indicative of chronic small vessel ischemic disease. There is vascular calcification of the carotid siphons. No acute calvarial fracture is identified. MAXILLOFACIAL: The orbits appear normal. There is mild postoperative thickening of the right S1 sinus. The sinuses are clear.. The hard palate, mandible, and temporomandibular joints appear intact. The patient is partially edentulous in maxilla and mandible. The mastoid air cells are clear. No soft tissue abnormality is identified. Multiple missing teeth. There is a fracture of the left maxillary central incisor. Lucency of the alveolar maxilla adjacent to the left central incisor could represent nondisplaced acute fracture. Mild left nasal soft tissue swelling with nondisplaced fracture of the left nasal bone. The nose there appears to the left side and there is mild soft tissue swelling of the nose especially on the left side. CERVICAL SPINE: There is straightening of the usual cervical lordosis. No evidence of acute fracture. Degenerative changes are present throughout the vertebral bodies with sclerosis, subchondral cysts and osteophyte formation at multiple levels. Other than advanced middle atlantoaxial joint osteoarthritis, the craniocervical junction appears normal. There is T11 advanced degenerative disc disease. Central canal stenosis mildly present C3-C4 and C6-C7 due to posterior endplate osteophytosis. There are varying degrees of advanced facet osteoarthritis. There are severe bilateral uncovertebral joint osteoarthritis at C3-C4 and varying degrees of mild uncovertebral joint osteoarthritis with the same degree of neural foraminal stenosis at these levels. There is atherosclerotic calcification of the carotid bifurcations. THORACIC SPINE: Grade 1 anterolisthesis of T1 on T2 due to degenerative changes, mild dextrocurvature of the thoracic spine a normal kyphosis of thoracic spine are present. Vertebral bodies are normal in height without evidence of acute fracture. There is moderate to severe degenerative disc disease most notable from T6 through T11. Vacuum phenomenon and Schmorl's nodes are present at multiple levels. No posterior disc abnormality, blood in central canal or central canal stenosis is seen. There are varying degrees of mild facet osteoarthritis. There are varying degrees of multilevel mild neural foraminal stenosis at multiple levels. There is atherosclerotic calcification of the thoracic aorta and its branch vessels. Chronic appearing right posterior rib deformities of the seventh through ninth ribs. LUMBAR SPINE: Grade 1 anterolisthesis of L4 on L5 due to severe facet osteoarthritis. Vertebral bodies are normal in height without evidence of acute fracture. There is mild degenerative disc disease. Mild bilateral lateral stenosis secondary to concentric posterior disc bulge and hypertrophy of ligamentum flavum is present at L3-L4 and moderate to severe bilateral lateral recesses stenosis at L4-L5. Advanced bilateral facet osteoarthritis at L4-L5 and L5-S1 and mild to moderate facet osteoarthritis of the upper lumbar spine are present. Moderate to severe neural foraminal stenosis at L4-L5 and L5-S1 due to facet arthropathy is present. There is atherosclerotic calcification of the abdominal aorta and its branch vessels. Partially visualized hypodensity of the right kidney likely represents a renal cyst. Brain injury guidelines: Skull fracture: No Subdural hematoma: No subdural hematoma. Epidural hematoma: No epidural hematoma. Intraparenchymal hemorrhage: No intraparenchymal hemorrhage. Subarachnoid hemorrhage: No subarachnoid hemorrhage. Intraventricular hemorrhage: No. Midline shift: No. Procedure Note Kodak Patel MD - 10/14/2024 PROCEDURE: CT HEAD WO CONTRAST, CT FACIAL BONES WO CONTRAST, CTCERVICAL SPINE WO CONTRAST, CT THORACIC SPINE WO CONTRAST, CT LUMBAR SPINE WO CONTRAST, DATE/TIME OF EXAM: 10/14/2024 6:21 PM, LOCATION [facility] INDICATION: Trauma EXAMINATION: 1. CT OF THE HEAD WITHOUT CONTRAST 2. CT OF THE MAXILLOFACIAL BONES WITHOUT CONTRAST 3. CT OF THE CERVICAL SPINE WITHOUT CONTRAST 4. CT OF THE THORACIC SPINE WITHOUT CONTRAST 5. CT OF THE LUMBAR SPINE WITHOUT CONTRAST ADDITIONAL CLINICAL INFORMATION: Ordering Provider Reason For Exam: Technologist Note: Additional: TECHNIQUE: CT of the head, cervical spine, and maxillofacial bones,orbits, and paranasal sinuses was performed without contrast according tostandard protocol. Reformatted axial, sagittal, and coronal images of thethoracic and lumbar spine were obtained by the technologist from a concurrently performed body CT and sent to the workstation for review. CT dosereduction technique was used, including Automated Exposure Control. COMPARISON: No prior study is available for comparison at the time ofthis dictation. FINDINGS: HEAD: No acute intra- or extra-axial hemorrhage is identified. There ismoderate cerebral volume loss with associated ex vacuo ventricular dilatation.Beam hardening artifact due to dental fillings is present surrounding the foramen magnum. Considering that, the basilar cisterns are patent. Nomass effect or midline shift is seen. There is no visible contusion or infarction. The ramos-white matter differentiation is normal. Periventricular white matter hypoattenuation is indicative of chronicsmall vessel ischemic disease. There is vascular calcification of the carotid siphons. No acute calvarial fracture is identified. MAXILLOFACIAL: The orbits appear normal. There is mild postoperative thickening of the right S1 sinus. The sinuses are clear.. The hard palate, mandible, and temporomandibular joints appear intact. The patient is partiallyedentulous in maxilla and mandible. The mastoid air cells are clear. No soft tissue abnormality is identified. Multiple missing teeth. There is a fractureof the left maxillary central incisor. Lucency of the alveolar maxilla adjacent to the left central incisor could represent nondisplaced acute fracture. Mild left nasal soft tissue swelling with nondisplacedfracture of the left nasal bone. The nose there appears to the left side andthere is mild soft tissue swelling of the nose especially on the left side. CERVICAL SPINE: There is straightening of the usual cervical lordosis. No evidence ofacute fracture. Degenerative changes are present throughout the vertebralbodies with sclerosis, subchondral cysts and osteophyte formation at multiple levels. Other than advanced middle atlantoaxial joint osteoarthritis,the craniocervical junction appears normal. There is T11 advanceddegenerative disc disease. Central canal stenosis mildly present C3-C4 and C6-C7 dueto posterior endplate osteophytosis. There are varying degrees of advanced facet osteoarthritis. There are severe bilateral uncovertebral joint osteoarthritis at C3-C4 and varying degrees of mild uncovertebral joint osteoarthritis with the same degree of neural foraminal stenosis atthese levels. There is atherosclerotic calcification of the carotidbifurcations. THORACIC SPINE: Grade 1 anterolisthesis of T1 on T2 due to degenerative changes, mild dextrocurvature of the thoracic spine a normal kyphosis of thoracicspine are present. Vertebral bodies are normal in height without evidence of acute fracture. There is moderate to severe degenerative disc diseasemost notable from T6 through T11. Vacuum phenomenon and Schmorl's nodes are present at multiple levels. No posterior disc abnormality, blood in central canal or central canal stenosis is seen. There are varyingdegrees of mild facet osteoarthritis. There are varying degrees of multilevelmild neural foraminal stenosis at multiple levels. There is atherosclerotic calcification of the thoracic aorta and its branch vessels. Chronic appearing right posterior rib deformities of the seventh through ninth ribs. LUMBAR SPINE: Grade 1 anterolisthesis of L4 on L5 due to severe facet osteoarthritis. Vertebral bodies are normal in height without evidence of acutefracture. There is mild degenerative disc disease. Mild bilateral lateral stenosis secondary to concentric posterior disc bulge and hypertrophy ofligamentum flavum is present at L3-L4 and moderate to severe bilateral lateral recesses stenosis at L4-L5. Advanced bilateral facet osteoarthritis at L4-L5 and L5-S1 and mild to moderate facet osteoarthritis of the upper lumbar spine are present. Moderate to severe neural foraminal stenosisat L4-L5 and L5-S1 due to facet arthropathy is present. There is atherosclerotic calcification of the abdominal aorta and its branch vessels. Partially visualized hypodensity of the right kidney likely represents a renal cyst. Brain injury guidelines: Skull fracture: No Subdural hematoma: No subdural hematoma. Epidural hematoma: No epidural hematoma. Intraparenchymal hemorrhage: No intraparenchymal hemorrhage. Subarachnoid hemorrhage: No subarachnoid hemorrhage. Intraventricular hemorrhage: No. Midline shift: No. IMPRESSION: 1.No acute intracranial hemorrhage, midline shift, or significant mass effect. 2.Acute, mildly displaced fracture of the left nasal bone with softtissue swelling. Questionable, nondisplaced fracture of the left centralalveolar maxilla with adjacent broken left central incisor. Please correlate with physical examination. 3.No evidence of acute fracture in the cervical, thoracic, or lumbarspine. 4.Degenerative changes throughout the spine as detailed above. Report dictated by Joaquina Patterson MD (residential worker). I, Kodak Patel MD have personally reviewed and interpreted this examination/study. > Interpreting Provider: Kodak Patel MD on 10/14/2024 7:58 PM Jaziel Mccullough MD CT ORDERABLES * TROPONIN-I HIGH SENSITIVE REFLEX 1HOUR (10/14/2024 6:56 PM AUTISM SPECIALIST) Troponin I High Sensitive 8 <=35 ng/L 10/14/2024 7:32 PM [facility] Delta Troponin I HS 10/14/2024 7:32 PM [facility] Comment:Delta value intentio misti not calculated. Baseline to 1 hour specimen collection interval exceeded. Blood BLOOD SPECIMEN / Unknown Venipuncture / Unknown 10/14/2024 6:56 PM [facility] SPECIALIST 10/14/2024 7:01 PM [facility] SPECIALIST Jaziel Mccullough MD LAB - CHEMISTRY ALPHONSE DICKSON [facility] Organization Address City/State/[facility] Co de Phone Number [address] [address], [facility] [phone] * (ABNORMAL) URINALYSIS REFLEX MICROSCOPIC REFLEX CULTURE (10/14/2024 6:22 PM AUTISM SPECIALIST) Color UA Yellow Yellow, Straw 10/14/2024 7:01 PM [facility] Clarity UA Clear Clear 10/14/2024 7:01 PM [facility] Glucose UA Normal Normal 10/14/2024 7:01 PM [facility] Bilirubin UA Negative Negative 10/14/2024 7:01 PM [facility] Ketone UA Trace(A) Negative 10/14/2024 7:01 PM [facility] Specific [place] UA 1.022 1.005 - 1.030 10/14/2024 7:01 PM [facility] Blood UA 1+(A) Negative 10/14/2024 7:01 PM [facility] pH UA 6.5 5.0 - 9.0 pH 10/14/2024 7:01 PM [facility] Protein UA Negative Negative 10/14/2024 7:01 PM [facility] Urobilinogen UA 6.0(A) Normal mg/dL 025 7:01 PM [facility] Nitrite UA Negative Negative 10/14/2024 7:01 PM [facility] [facility] Leukocyte UA Negative Negative 10/14/2024 7:01 PM [facility] RBC UA 21-50(A) 0 - 5 # /hpf 10/14/2024 7:01 PM [facility] WBC UA 0-5 0 - 5 # /hpf 10/14/2024 7:01 PM [facility] Bacteria UA None Seen None Seen 10/14/2024 7:01 PM [facility] Squamous Epithelial Cells 0-2 0 - 5 /hpf 10/14/2024 7:01 PM [facility] Mucus UA 1+ /LPF 10/14/2024 7:01 PM [facility] Urine URINE SPECIMEN OBTAINED BY CLEAN CATCH PROCEDURE / Unknown Collection / Unknown 10/14/2024 6:22 PM AUTISM SPECIALIST 10/14/2024 6:[address] [facility] Narrative [facility] - 10/14/2024 7:[address] [facility] Jaziel Mccullough MD LAB - URINALYSIS ORD ERABLES [facility] [address] [place] [address], [facility] [phone] * EKG 12-LEAD (10/14/2024 6:[address] [facility]) Ventricular Rate 62 BPM [facility] MUSE Atrial Rate 62 BPM [facility] MUSE P-R Interval 176 ms [facility] MUSE QRS Duration ms 136 ms [facility] MUSE Q-T Interval ms 448 ms [facility] MUSE QTC Calculation (Bezet) 454 ms [facility] MUSE Calculated P Sorrento 46 degrees [facility] MUSE Calculated R [place] 3 degrees [facility] MUSE Calculated T Sorrento 4 degrees [facility] MUSE Interpretation EKG SINUS RHYTHM WITH MARKED SINUS ARRYTHMIA RIGHT BUNDLE BRANCH BLOCK ABNORMAL ECG NO PREVIOUS ECGS AVAILABLE Confirmed by MD KIKE, DAWNA ([id number]) on 10/16/2024 8:55:26 AM [facility] MUSE 10/14/2024 6:13 PM AUTISM SPECIALIST 10/16/2024 8:55 AM AUTISM SPECIALIST Jaziel Mccullough MD ECG ORDERABLES Performing Organization Address City/[facility]/ZIP Co de Phone Number [facility] * TROPONIN-I HIGH SENSITIVE BASELINE + 1HR (10/14/2024 5:22 PM AUTISM SPECIALIST) Troponin I High Sensitive 7 <=35 ng/L 10/14/2024 6:10 PM AUTISM SPECIALIST [facility] Blood BLOOD SPECIMEN / Unknown Venipuncture / Unknown 10/14/2024 5:22 PM AUTISM SPECIALIST 10/14/2024 5:32 PM AUTISM SPECIALIST Jaziel Mccullough MD LAB - CHEMISTRY ORDE [facility]HECO Performing Organization Address [facility] Co de Phone Number [facility] [address] [place] [id number], [place] [phone] * TYPE + SCREEN PANEL (10/14/2024 5:22 PM AUTISM SPECIALIST) Antibody Screen NEG 6:12 PM AUTISM SPECIALIST [facility] BLOOD BANK LAB ABO Rh B POS 10/14/2024 6:12 PM AUTISM SPECIALIST [facility] BLOOD BANK LAB Blood Bank BLOOD SPECIMEN / Unknown Venipuncture / Unknown 10/14/2024 5:22 PM AUTISM SPECIALIST 10/14/2024 5:32 PM AUTISM SPECIALIST Jaziel Mccullough MD LAB - BLOOD BANK ORD ERABLES Performing Organization Address City/[facility]/ZIP Co de Phone Number [facility] BLOOD BANK LAB [address] [place] [address] [phone] * (ABNORMAL) CBC W AUTO DIFFERENTIAL (10/14/2024 5:22 PM AUTISM SPECIALIST) [facility] WBC 5.2 4.0 - 10.7 x10E9/L 10/14/2024 5:50 PM [facility] RBC Count 3.93(L) 4.30 - 5.80 x10E12/L 10/14/2024 5:50 PM [facility] Hemoglobin 12.6(L) 13.3 - 17.5 g/dL 10/14/2024 5:50 PM [facility] Hematocrit 36.1(L) 38.7 - 51.1 % 10/14/2024 5:50 PM [facility] MCV 91.9 80.0 - 98.0 fL 10/14/2024 5:50 PM [facility] MCH 32.1 26.7 - 33.6 pg 10/14/2024 5:50 PM [facility] MCHC 34.9 31.7 - 36.3 g/dL 10/14/2024 5:50 PM [facility] RDW-CV 13.6 11.3 - 14.8 % 10/14/2024 5:50 PM [facility] Platelet Count 107(L) 150 - 420 x10E9/L 10/14/2024 5:50 PM [facility] MPV 11.3 7.8 - 11.4 fL 10/14/2024 5:50 PM [facility] Neutrophil % 64.7 41.0 - 74.0 % 10/14/2024 5:50 PM [facility] Lymphocyte % 22.7 17.0 - 47.0 % 10/14/2024 5:50 PM [facility] Monocyte % 8.7 3.0 - 11.0 % 10/14/2024 5:50 PM [facility] Eosinophil % 2.7 0.0 - 7.0 % 10/14/2024 5:50 PM [facility] Basophil % 0.8 0.0 - 1.6 % 10/14/2024 5:50 PM [facility] Immature Granulocytes % 0.4 0.0 - 1.0 % 10/14/2024 5:50 PM [facility] Neutrophil Absolute 3.37 1.60 - 7.50 x10E9/L 10/14/2024 5:50 PM [facility] Lymphocyte Absolute 1.18 1.00 - 4.40 x10E9/L 10/14/2024 5:50 PM [facility] Monocyte Absolute 0.45 0.15 - 1.00 x10E9/L 10/14/2024 5:50 PM [facility] Eosinophil Absolute 0.14 0.00 - 0.60 x10E9/L 10/14/2024 5:50 PM [facility] Basophil Absolute 0.04 0.00 - 0.13 x10E9/L 10/14/2024 5:50 PM [facility] Blood BLOOD SPECIMEN / Unknown Venipuncture / Unknown 10/14/2024 5:22 PM AUTISM SPECIALIST 10/14/2024 5:[address] [facility] Jaziel Mccullough MD LAB - HEMATOLOGY ORD ERABLES [facility] [address] [place] [address], [facility] [phone] * (ABNORMAL) BASIC METABOLIC PANEL (CALCIUM TOTAL) (10/14/2024 5:22 PM AUTISM SPECIALIST) BUN 17 7 - 26 mg/dL 10/14/2024 6:07 PM [facility] Creatinine 0.65(L) 0.71 - 1.16 mg/dL 10/14/2024 6:07 PM [facility] Sodium 143 136 - 145 mmol/L 10/14/2024 6:07 PM [facility] Potassium 3.1(L) 3.5 - 4.5 mmol/L 10/14/2024 6:07 PM [facility] Chloride 110(H) 98 - 107 mmol/L 10/14/2024 6:07 PM [facility] CO2 23 22 - 29 mmol/L 10/14/2024 6:07 PM [facility] Glucose 79 70 - 99 mg/dL 10/14/2024 6:07 PM [facility] Calcium 7.5(L) 8.4 - 10.2 mg/dL 10/14/2024 6:07 PM [facility] Anion Gap 10 6 - 16 10/14/2024 6:07 PM [facility] BUN/Creatinine Ratio 26(H) 7 - 23 10/14/2024 6:07 PM [facility] Osmolality Calculated 296(H) 275 - 295 mOsm/kg 10/14/2024 6:07 PM [facility] eGFR by CKD-EPI >90 >=90 mL/min/1.7 3 m2 10/14/2024 6:07 PM [facility] Blood BLOOD SPECIMEN / Unknown Venipuncture / Unknown 10/14/2024 5:22 PM AUTISM SPECIALIST 10/14/2024 5:32 PM AUTISM SPECIALIST Jaziel Mccullough MD LAB - CHEMISTRY ALPHONSE DICKSON Performing Organization Address City/[facility]/ZIP Co de Phone Number [address] [address], [facility] [phone] * (ABNORMAL) CK BLOOD (10/14/2024 5:22 PM AUTISM SPECIALIST) CK Total 994(H) 30 - 200 U/L 10/14/2024 6:07 PM [facility] Blood BLOOD SPECIMEN / Unknown Venipuncture / Unknown 10/14/2024 5:22 PM AUTISM SPECIALIST 10/14/2024 5:32 PM AUTISM SPECIALIST Jaziel Mccullough MD LAB - CHEMISTRY ALPHONSE DICKSON [address] [address], [place] [phone] * ALCOHOL ETHYL BLOOD (10/14/2024 5:22 PM AUTISM SPECIALIST) Ethanol (mg/dL) <10 <10 mg/dL 6:07 PM [facility] Ethanol Calculated (g/dL) <0.010 <=0.010 g/dL 10/14/2024 6:07 PM [facility] Blood BLOOD SPECIMEN / Unknown Venipuncture / Unknown 10/14/2024 5:22 PM AUTISM SPECIALIST 10/14/2024 5:32 PM AUTISM SPECIALIST Narrative [facility] - 10/14/2024 6:07 PM AUTISM SPECIALIST Ethanol Interp <10: None Detected. Depression of ENVIRONMENTAL ENGINEERING MANAGER: >100 mg/dl Potentially Critical: >250 mg/dl Potentially Fatal >400 mg/dl Ethanol in the patient's blood will contribute to the osmolar gap. Ethanol's contribution to the osmolar gap can be estimated by dividing the concentration of ethanol in mg/dL by 4.6. This test is for clinical use only and does not equal a AYSHA for legal purposes. Jaziel Mccullough MD LAB - CHEMISTRY ALPHONSE DICKSON [facility] Organization Address City/State/ZIP Co de Phone Number [facility] [address] [place] [address], [facility] [phone] from Last 3 Months Advance Directives Documents on File Type Date Recorded Patient Production Manufacturing Worker Expl anation Adv Directive/Living Will/POA 10/14/2024 Power of Pattern Stamper Care Teams Biomedical Photographer Relationship Specialty Start Date End Date None, Physician PCP - General 10/14/24
--- OUTSIDE RECORDS SUMMARY | 2024-11-09 18:54 | XMS_ITS | Clinical Summary ---
Author Organization [facility] Address [address], [address] [address] Phone Care Team Providers Care Credit Historian Name Role Phone Jayme Beltrán MD Primary Care Provider [phone] Cody Padilla MD Unavailable [phone] Sulma Petty APRN, DITCH DIGGER Unavailable Allergies No known active allergies Medications Multiple Vitamin (TAB-A-CHARO PO) Take 1 Tab by mouth every morning. Active Loratadine (CLARITIN PO) Take 10 mg by mouth Daily as needed. Active pantoprazole (PROTONIX) 40 MG Pack Take 40 mg by mouth every morning. Active Menthol-Methyl Salicylate (ICY HOT) 10-30 % STICK by Apply externally route as needed. Active ALPRAZOLAM POIndications:t akes rarely Take 0.25 mg by mouth daily as needed. Indications: takes rarely Active tamsulosin (FLOMAX) 0.4 MG Capsule Take 0.4 mg by mouth nightly. 9 Active PARoxetine (PAXIL) 10 MG Tablet Take 20 mg by mouth every morning. 9 Active famotidine (PEPCID) 20 MG Tablet 2 times daily. 0 Active ID Now COVID-19 Kit TEST DIRECTED TODAY 2 Active acetaminophen (TYLENOL) 325 MG Tablet Take 325 mg by mouth. 8 Active DONEPEZIL HCL TD 3 Active donepezil (ARICEPT) 10 MG Tablet Take 10 mg by mouth nightly. Active gabapentin (NEURONTIN) 100 MG Capsule Take 1 Capsule by mouth 3 times daily. 4 Active traZODone (DESYREL) 50 MG Tablet Take 50 mg by mouth nightly. Active midodrine (PROAMATINE) 5 MG Tablet Take 5 mg by mouth every 8 hours. Active Active Problems Problem Noted Date Diagnosed Date Alzheimer's disease 08/02/2024 Closed fracture of multiple ribs of right side 1 Overview (08/24/2024): Glo Tiwari. Constipation, unspecified 05/27/2024 Neck pain 04/30/2023 Overview (08/24/2024): Chronic, present for more than a year, currently reasonably well controlled with acetaminophen. Fortunately there was no acute injury to his C-spine when he fell. He stopped taking tramadol several months ago so we removed it from his list. Return in six weeks. Alcoholic cirrhosis of liver without ascites Gastroesophageal reflux disease without esophagi tis 05/16/2018 Mild cognitive impairment with memory loss 03/16 Overview (08/24/2024): Subjective memory difficulties. Benign prostatic hyperplasia with urinary freque ncy 02/13/2015 Overview (08/24/2024): He is a candidate for prostatic artery embolization, but a trial of finasteride recommended first. Encounters Date Type Department Care Team Description 08/24/2024 11:30 AM TIRE MECHANIC Office Visit [facility]ology - [place] [address] [place] [address] Sulma Petty APRN, DITCH DIGGER Alcoholic cirrhosis of liver without ascites (HCC) (Primary Dx); Mild cognitive impairment with memory loss; Gastroesophageal reflux disease without esophagitis; Constipation, unspecified constipation type Discharge Disposition: Discharged to home or Selfcare 08/23/2024 Travel 08/22/2024 Travel from Last 3 Months Family History Medical History Relation Name Comments Cancer Father multiple myloma Cancer Mother unknown Heart Disease Mother Relation Name Status Comments Father Mother Social History Tobacco Use Types Packs/Day Years Used Date Smoking Tobacco: Former Cigarettes 1 30 0 05/06/1968 - 05/06/1998 Smokeless Tobacco: Never Tobacco Cessation:Counseling Given: Not Answered Alcohol Use Standard Drinks/Week Comments Not Currently 21 (1 standard drink = 0.6 oz pu re alcohol) quit jun 2018 Sexually Active Control Partners Comments Not Currently Sex and Gender Information Value Date Recorded Sex Assigned at Not on file Legal Sex Male 9:59 PM CDT Gender Identity Not on file Sexual Orientation Not on file Last Filed Vital Signs Vital Sign Reading Time Taken Comments Blood Pressure 120/80 08/24/2024 11:45 AM TIRE MECHANIC Pulse 55 08/24/2024 11:45 AM TIRE MECHANIC Temperature 36.7 C (98 F) 08/24/2024 11:45 AM TIRE MECHANIC Respiratory Rate 16 08/24/2024 11:45 AM TIRE MECHANIC Oxygen Saturation 97% 08/24/2024 11:45 AM TIRE MECHANIC Inhaled Oxygen Concentration - - Weight 72.2 kg (159 lb 1.6 oz) 08/24/2024 11:45 AM TIRE MECHANIC Height 160 cm (5' 3 ) 08/24/2024 11:45 AM TIRE MECHANIC Body Mass Index 28.18 08/24/2024 11:45 AM TIRE MECHANIC Plan of Treatment Upcoming Encounters Date Type Department Care Team (Late st Contact Info) Description 02/23/2025 11:30 AM CDT Office Visit [facility] - [facility]ology - [place] [address] [place] [address] Sulma Petty APRN, DITCH DIGGER [address] [place] [address] Health Maintenance Due Date Last Done Comments SARS-COV-2 Immunization ( season) 2025 08/19/2024, 06/05/2023, 04/26/2022, Additional history exists Hepatitis C Virus (HCV) Screening Completed 05/04/2018 Zoster Immunization Completed 01/02/2019, 10/31/2018, 06/01/2014, Additional history exists Hepatitis B Immunization Completed 019, 12/03/2018, 10/31/2018 Pneumococcal Immunization (50+ years) Completed 01/05/2020, 04/18/2019, 08/16/2007 Pneumococcal Immunization Combined Discontinued 01/05/2020, 04/18/2019, 08/16/2007 Colonoscopy High Risk Discontinued 09/03/2021 , 11/11/2020, 05/10/2018 Colonoscopy Discontinued 09/03/2021, 10/15, 05/10/2018 Colorectal Cancer Screening Discontinued DTaP/Tdap/Td Immunization Discontinued 07/31/2023, Respiratory Syncytial Virus (RSV) Immunization (Adult) Completed 07/31/2023 TdaP Immunization Completed 07/31/2023, 05/28/2010 Influenza Immunization Completed , 06/05/2023, 05/11/2022, Additional history exists Cologuard Discontinued Immunochemical Fecal Occult Blood Discontinued Meningococcal Immunization (ACWY) Aged Out No longer eligible based on patient's age to complete this topic Rotavirus Immunization Aged Out No lo nger eligible based on patient's age to complete this topic Procedures Procedure Name Priority Date/Time Associated Diagnosis Comments COLONOSCOPY 09/03/2021 12:00 AM TIRE MECHANIC HEPATITIS PANEL ACUTE (AHP) Routine 05/04/2018 6:42 AM CDT Hepatic cirrhosis, unspecified hepatic cirrhosis type, unspecified whether ascites present (HCC) from Last 3 Months or Most Recently Relevant to Health Maintenance Results * COLONOSCOPY (09/03/2021 12:00 AM TIRE MECHANIC) 09/03/2021 us Not On File Provider PROCEDURE/MINOR SURGICAL OR DERABLES Final Result SCAN * HEPATITIS PANEL ACUTE (AHP) (05/04/2018 6:42 AM CDT) HEPATITIS A IGM ANTIBODY NON DETECTED NON DETECTED 05/05/2018 3:[address] [facility] Comment: IGM Antibodies to HAV not detected. Does not exclude early acute or recovered HAV infection. HEP B CORE AB (IGM) NON DETECTED NON DETECTED 05/05/2018 3:24 AM CDT [facility] Comment: IGM anti-HBC not detected. Does not exclude the possibility of exposure to or infection with HBV. HEPATITIS B SURFACE ANTIGEN NON DETECTED NON DETECTED 05/05/2018 3:24 AM CDT [facility] Comment: A nonreactive test result does not exclude the possibility of exposure to or infection with Hepatitis B virus. A nonreactive test result in individuals with prior exposure to hepatitis B may be due to antigen levels below the detection limit of this assay or lack of antigen reactivity to the antibodies in this assay. hepatitis C antibody 0.08 <1 S/CO 05/05/2018 3:24 AM CDT [facility] Comment: Signal/Cutoff ratio < 0.79 is Nondetected Signal/Cutoff ratio 0.80-0.99 is Grayzone Signal/Cutoff ratio > 0.99 is Detected Supplemental assays are recommended if signal/cutoff ratio is >/=1.00. Signal/cutoff ratio result >/= 5.00 is 97% predictive of positivity for recombinant immunoblot assay (RIBA) and will be reported to the [place] Department of Public [facility] as required. Blood specimen (specimen) Venipuncture / Unknown 05/04/2018 6:42 AM CDT 05/04/2018 9:21 AM CDT us Александр Davison MD HEMATOLOGY ORDERABLES F inal Result [facility] [address] [place] [address], from Last 3 Months or Most Recently Relevant to Health Maintenance Insurance MEDICARE C [employer] Care Teams Credit Historian Relationship Specialty Start Date End Date Jayme Beltrán MD [address], [address] [place] [address] PCP - General Infectious Disease 06/23/19 Cody Padilla MD [address] [place] [address] Consulting Physician Gastroenterology 11/12/22 Sulma Petty APRN, DITCH DIGGER [address] [place] [address] Nurse Practitioner Advanced Practice Nurse 08/24/24
--- OUTSIDE RECORDS SUMMARY | 2024-11-09 18:54 | XMS_ITS | Clinical Summary ---
Author Organization [facility] [address] Address [address] [email or web address] [place] [address] Phone Care Team Providers [facility] Administrator Name Role Phone Jayme Beltrán MD Primary Care Provider [phone] Jayme Donis MD PhD Unavailable [phone] Hannah OD Unavailable [phone] Blayne Gutierrez MD PhD Unavailable [phone] Yue Heaton DIESEL TRUCK CRANE OPERATOR Unavailable [phone] Ciro Magana DIESEL TRUCK CRANE OPERATOR Unavailable [phone] Arpit Joy MD Unavailable [phone] Charan Walsh MD Unavailable [phone] Allyn Gilman MD Unavailable [phone] Allergies No known active allergies Medications acetaminophen (TYLENOL) 325 mg tablet Take 1 tablet (325 mg total) by mouth every 4 (four) hours as needed 04/29/20 18 Active loratadine (CLARITIN) 10 mg tablet Take 1 tablet (10 mg total) by mouth daily as needed 05/06/20 18 Active TiZANidine (ZANAFLEX) 2 mg capsule Take 1-2 capsules (2-4 mg total) by mouth 3 (three) times a day as needed for muscle spasms 60 capsule 1 04/28/20 24 Active Additional Information Patient not taking.Reported on 08/25/2024 polyethylene glycol (MIRALAX) 17 gram packet Take 1 packet (17 g total) by mouth 2 (two) times a day 06/05/20 24 Active calcium carbonate (TUMS) 500 mg (200 mg elemental calcium) chewable tablet Take 0.8 tablet/chew tab (400 mg total) by mouth 3 (three) times a day as needed Active gabapentin (NEURONTIN) 100 mg capsuleIndicat ions:Neuropath ic Pain Take 1 capsule (100 mg total) by mouth 3 (three) times a day 90 capsule 5 07/22/20 24 Active donepeziL (ARICEPT) 10 mg tabletIndicati ons:Mild to Moderate Alzheimer's Type Dementia Take 1 tablet (10 mg total) by mouth nightly 07/20/20 24 Active mirtazapine (REMERON) 15 mg tabletIndicati ons:Persistent mood disorder Take 1 tablet (15 mg total) by mouth nightly 30 tablet 5 09/17/19 25 Active finasteride (PROSCAR) 5 mg tabletIndicati ons:Benign prostatic hyperplasia with urinary frequency Take 1 tablet (5 mg total) by mouth daily 90 tablet 09/21/19 25 026 Active midodrine (PROAMATINE) 5 mg tabletIndicati ons:Orthostati c hypotension TAKE 1 TABLET BY MOUTH EVERY 8 HOURS. 270 tablet 1 10/09/19 25 Active multivitamin with folic acid (Daily-Jasvir, with folic acid,) 400 mcg tabletIndicati ons:Urinary urgency TAKE 1 TABLET BY MOUTH EVERY DAY 90 tablet 1 10/17/19 25 Active famotidine (PEPCID) 20 mg tabletIndicati ons:Gastroesop hageal reflux disease without esophagitis TAKE 1 TABLET BY MOUTH TWICE A DAY 180 tablet 1 10/18/19 25 Active QUEtiapine (SEROquel) 50 mg tabletIndicati ons:Persistent mood disorder TAKE 1 TABLET BY MOUTH EVERY DAY AT NIGHT 90 tablet 1 10/18/19 25 Active QUEtiapine (SEROquel) 50 mg tablet Take 1 tablet (50 mg total) by mouth nightly 09/09/19 25 Active fludrocortison e 0.1 mg tabletIndicati ons:Orthostati c hypotension TAKE 1 TABLET BY MOUTH EVERY DAY 30 tablet 3 10/31/19 25 Active Daily-Jasvir, with folic acid, 400 mcg tablet TAKE 1 TABLET BY MOUTH DAILY 90 tablet 3 10/25/19 24 025 Discontinued famotidine (PEPCID) 20 mg tablet TAKE 1 TABLET BY MOUTH TWICE A DAY 180 tablet 1 05/19/20 24 025 Discontinued fludrocortison e 0.1 mg tabletIndicati ons:Orthostati c hypotension Take 1 tablet (0.1 mg total) by mouth daily 30 tablet 3 07/13/20 24 025 Discontinued QUEtiapine (SEROquel) 25 mg tablet Take 1 tablet (25 mg total) by mouth 2 (two) times a day 60 tablet 3 08/02/20 24 025 Discontinued(A lternate therapy) Active Problems Problem Noted Date Diagnosed Date Alzheimer's disease 08/02/2024 Assessment & Plan (08/02/2024 11:34 AM HOT WOUND SPRING PRODUCTION SUPERVISOR): Overall, slight decline to cognitive testing. He continues to have episodes of aggression. We will try increasing his quetiapine/Seroquel to 25 mg BID. plans to install cameras in the home after the holidays. She has mentioned the patient wants to stay home alone. After the cameras are installed, we can trial leaving the patient home alone for 1-2 hours maximum. Follow-up in 6 months or sooner if need be. Urinary urgency 07/21/2024 Assessment & Plan (08/01/2024 5:33 AM HOT WOUND SPRING PRODUCTION SUPERVISOR): New symptom, started about 10 days ago when the patient began taking finasteride for BPH. The cause of his urinary urgency is unclear. He describes possible dysuria, details are a little unclear. We ordered a urinalysis with microscopic and reflex culture. We consulted his urologist, Dr. Walsh, via secure chat. Follow-up early here or with Urology as needed. Other insomnia 06/14/2024 Wedge compression fracture of unsp thoracic vert ebra, init 06/05/2024 Overview (06/21/2024): [facility]. No such history known to patient or his . Orthostatic hypotension 06/02/2024 Overview (06/20/2024): [facility]. Assessment & Plan (08/01/2024 5:26 AM HOT WOUND SPRING PRODUCTION SUPERVISOR): New problem as of about two months ago. He continues on midodrine and fludrocortisone to maintain blood pressure. He is wearing a heart monitor to evaluate for possible arrhythmias that may have been responsible for a possible syncopal episode. So far after one week, no serious rhythm problem has been reported. Assessment & Plan (06/25/2024 6:18 AM HOT WOUND SPRING PRODUCTION SUPERVISOR): New finding, diagnosed during his recent hospitalization at [facility] for a fall with injuries. They considered that the orthostatic hypotension might have contributed to his fall as there was some question of lightheadedness or near- syncope at the time. He was started on midodrine 5 mg every 8 hours which is hard for his to schedule so I advised her she could give it to him 3 times daily at 6 hour intervals. He was also started on fludrocortisone 0.1 mg daily. There is no swelling in his legs. Blood pressure today is in a low normal range. The admitting physicians at [facility] recommended a follow-up with Cardiology, and I agree so we placed a referral. They also recommended that he wear thigh-high support hose and an abdominal binder to maintain blood pressure. I would say these interventions, especially the latter, are of dubious efficacy, but he can continue to wear them if he feels they are helpful. Fall down stairs 05/30/2024 Overview (06/20/2024): [facility]. Assessment & Plan (06/25/2024 6:15 AM HOT WOUND SPRING PRODUCTION SUPERVISOR): Acute problem from about three weeks ago, improving. He was visiting relatives in [place] and needed to use the restroom. He apparently took a wrong turn and fell down steps to the garage. He went to [facility] where he was diagnosed with multiple rib fractures and a small right pneumothorax. Imaging of the head and C-spine did not show any acute injuries. He stayed in the hospital for about six days to make sure he was stable and to address issues with orthostatic hypotension. He was then discharged to rehab in [place] and is now home. He is using a four prong cane to stabilize his gait. He gets up from a chair without assistance. There is no gait ataxia but he is careful and does take his time. We discontinued methocarbamol. He can take tizanidine 2-4 mg 3 times daily as needed but seems to be doing well without much in the way of analgesia or muscle relaxer. He will follow-up as scheduled in about six weeks. Pneumothorax, traumatic 05/30/2024 Overview (06/20/2024): [facility]. Assessment & Plan (06/25/2024 6:19 AM HOT WOUND SPRING PRODUCTION SUPERVISOR): Acute problem as of his recent hospitalization at [facility]. This was small and managed conservatively. Today, lungs are clear and oxygen saturation on room air is normal. We will monitor clinically. Closed fracture of multiple ribs of right side 1 Overview (06/20/2024): [facility]. Assessment & Plan (06/21/2024 5:19 PM HOT WOUND SPRING PRODUCTION SUPERVISOR): Acute problem from about three weeks ago, improving. He was diagnosed with multiple rib fractures and a small right pneumothorax from his recent fall down some steps. He currently denies chest wall pain. Lungs are clear. The small pneumothorax was managed conservatively without a chest tube. We will see him back as scheduled in about six weeks. Mouth lesion 01/24/2024 Assessment & Plan (01/31/2024 5:09 AM CDT): Images from the original note were not included. New problem, unknown significance. He has a small pigmented or vascular lesion on the left posterior/medial hard palate of uncertain significance. He was unaware of this abnormality. He will monitor at home and call if there are any changes. We also documented the lesion photographically. Neck pain 04/30/2023 Overview (06/21/2024): Chronic, present for more than a year, currently reasonably well controlled with acetaminophen. Fortunately there was no acute injury to his C-spine when he fell. He stopped taking tramadol several months ago so we removed it from his list. Return in six weeks. Assessment & Plan (07/23/2023 2:15 PM HOT WOUND SPRING PRODUCTION SUPERVISOR): His neck pain might be a little better. He is back in physical therapy again after imaging and consultation with Interventional Radiology. Gabapentin seems to help him sleep. We will see him back in six months, or sooner if needed. Assessment & Plan (05/27/2023 1:24 PM CDT): Symptoms are about the same. He says they are now restricted to the right side. He had one session of physical therapy and can not tell right now if it is helping. He reports no new symptoms of concern including no fecal or urinary incontinence. We will see him back as currently scheduled in July, or sooner if needed. In the meantime continue physical therapy. If not improving, he can call for early follow-up or referral to pain management. Assessment & Plan (05/15/2023 9:37 AM CDT): He reports a history of chronic neck pain, probably going on for years but worse in the past two weeks. It radiates into the occipital scalp area, but he also has muscle tension and pain in the upper back muscles which radiates somewhat to both shoulders, right more than left. He denies weakness or numbness in his upper extremities. He denies fecal or urinary retention or incontinence. His pain was preventing adequate sleep. He went to [place] urgent care. A C-spine x-ray was performed which showed severe degenerative change. He was prescribed prednisone 50 mg daily for five days and cyclobenzaprine, neither of which have reduced his pain. Exam is notable for absent left arm reflexes and very subtle left triceps weakness. There is some mild discomfort with rotation of the neck, especially to the right. Nonsteroidals are contraindicated due to his underlying liver disease. We ordered some tramadol for use as needed, risks of medication discussed. We arranged for physical therapy evaluation and treatment. Return in one week. Consider additional imaging of the C-spine such as MRI. Consider referral to pain management depending on how things go. Other headache syndrome 04/30/2023 Assessment & Plan (08/01/2024 5:28 AM HOT WOUND SPRING PRODUCTION SUPERVISOR): Chronic, present for more than a year, uncontrolled, likely due to cervical arthritis. He complains of headache pains from the arthritis. He takes acetaminophen 325 mg q.4 hours PRN and gabapentin 100 mg 3 times daily which help him deal with the pain. Assessment & Plan (08/07/2023 3:16 PM HOT WOUND SPRING PRODUCTION SUPERVISOR): Headaches are still somewhat problematic. He takes Tylenol as needed and also has tramadol for use as needed. He experiences a little trouble with balance, and admits to at least one fall in past year. We advised him to take his time with changes in position. Assessment & Plan (06/12/2023 3:24 PM CDT): His headache is about the same. It is likely due to radiation of his neck pain into the scalp. We again discussed the possibility of temporal arteritis, but CRP was normal. He has no new vision symptoms. We asked again about jaw claudication which he denies. Just before the onset of the current symptoms, he did see his eye doctor for floaters in the right eye, and he has decided to defer a follow-up with ophthalmology for now. We will see him back as scheduled in about six weeks. Assessment & Plan (05/15/2023 9:53 AM CDT): Concurrent with the increase in his neck pain about two weeks ago, he developed a bilateral frontal headache. He also noticed some visual floaters. He denies diplopia. He denies fever, sinus congestion, or other upper respiratory symptoms. He denies jaw claudication. 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 We discussed possible causes of his headache including tension headache, sinusitis, polymyalgia rheumatica and temporal arteritis. We ordered a CBC and a CRP. We discussed getting a temporal artery biopsy, especially if the CRP is elevated. We also recommended evaluation by an MD or DO collar shaper operator. Follow-up in one week. Memory changes 10/05/2022 Assessment & Plan (01/27/2024 3:12 PM CDT): Trial dose of quetiapine/Seroquel 25 mg nightly to assist with behavioral changes. Briefly discussed lecanemab/Leqembi but stated that patient is on cusp of eligibility and risks may outweigh benefits. Encouraged to install cameras inside and outside of the home to keep track of patient when he is left alone. Also suggested some kind of tracking device such as an AirTag or watch that has a tracker function. Spoke with social and political studies professor, Daija Rodriguez, on ideas for respite care or other resources available for patient and . Encouraged patient to have hearing test done to evaluate for need of hearing aids. Discussed memantine/Namenda but will hold off as patient stumbles quite a bit and may increase his risk of falls. already holds financial and medical POA. Referral to [facility]. Follow-up in 6 months or sooner if need be. Mixed hyperlipidemia 07/01/2020 Assessment & Plan (08/01/2024 5:32 AM HOT WOUND SPRING PRODUCTION SUPERVISOR): Chronic, present for five or more years, not currently taking anything for cholesterol due to concern for his underlying alcoholic liver disease. Ten year cardiovascular risk is moderately elevated at 20%. We recommended attention to his diet and will revisit this issue periodically. Lab Results Component Value Date CHOL 191 07/24/2024 CHOL 213 (H) 06/24/2023 CHOL 201 (H) 07/14/2022 Lab Results Component Value Date HDL 74 07/24/2024 HDL 96 06/24/2023 HDL 79 07/14/2022 Lab Results Component Value Date LDLCALC 102 07/07/2021 LDLCALC 131 (H) 07/01/2020 LDL 101 (H) 07/24/2024 LDL 100 (H) 06/24/2023 LDL 106 (H) 07/14/2022 Lab Results Component Value Date TRIG 69 07/24/2024 TRIG 76 06/24/2023 TRIG 71 07/14/2022 Lab Results Component Value Date ALT 28 07/24/2024 AST 28 07/24/2024 ALKPHOS 132 07/24/2024 BILITOT 0.9 07/24/2024 Assessment & Plan (01/24/2024 2:22 PM CDT): Chronic, uncontrolled. He is unable to take cholesterol medicine due to his cirrhosis. We ordered labs to be done before his next visit in six months to give him feedback on his diet. Assessment & Plan (07/23/2023 2:14 PM HOT WOUND SPRING PRODUCTION SUPERVISOR): We discussed his lipid panel which confers a 21% 10 year cardiovascular risk. We discussed primary prophylaxis with statin, but due to the possible liver side effects, he declines therapy. Assessment & Plan (01/18/2023 2:37 PM CDT): We will check lipids before his next visit to give him feedback on his diet. Assessment & Plan (07/20/2022 11:25 AM HOT WOUND SPRING PRODUCTION SUPERVISOR): His cholesterol numbers look very good. At his age, he does have a slightly elevated cardiovascular risk, but we are avoiding statins because of his underlying liver disease. Assessment & Plan (01/16/2022 12:12 PM CDT): He will be due for lipids with his next set of labs in about six months. The last set was in pretty good shape. He is not taking anything for cholesterol. Assessment & Plan (07/14/2021 11:20 AM HOT WOUND SPRING PRODUCTION SUPERVISOR): His lipids look pretty reasonable, but his 10 year cardiovascular risk is elevated, mostly due to his age. He does not want to take a cholesterol medicine. We will monitor labs periodically to give him feedback on his diet. Assessment & Plan (01/06/2021 11:01 AM CDT): He is not currently taking anything for cholesterol because of his underlying liver disease. We will monitor labs periodically. Assessment & Plan (07/16/2020 3:44 PM HOT WOUND SPRING PRODUCTION SUPERVISOR): His current lipids show a mild to moderate elevation of total and LDL cholesterol, but HDL cholesterol is high giving him some protection. Ten year cardiovascular risk is about 14%. He does not want to take a medicine for cholesterol. We will monitor labs periodically to give him feedback on his diet. 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 Assessment & Plan (08/01/2024 5:31 AM HOT WOUND SPRING PRODUCTION SUPERVISOR): Chronic, present for five or more years, likely due to cirrhosis and hypersplenism, currently stable. We continue to monitor platelets periodically for any trends. Lab Results Component Value Date WBC 4.9 07/24/2024 HGB 12.8 (L) 07/24/2024 HCT 40.7 07/24/2024 MCV 100.5 (H) 07/24/2024 LABPLAT 119 (L) 07/24/2024 Assessment & Plan (01/24/2024 2:28 PM CDT): Chronic, unstable. He notes easy bruising which may be getting worse. Last platelet count was 121,000 which should be protective, although a little low and likely due to cirrhosis and hypersplenism. We ordered a follow-up today to re-evaluate. Secondary esophageal varices without bleeding Overview (02/27/2019): Multiple EGDs, [facility], Dr. Davison, [facility]. S/P banding on 09/13/17. Assessment & Plan (01/24/2024 2:29 PM CDT): Chronic, stable. He will keep his follow ups with GI at [facility]. Assessment & Plan (01/18/2023 2:37 PM CDT): It has been over one year since his last EGD and a follow-up is planned but not scheduled yet. His says she will call the GI office at [facility]. Assessment & Plan (02/06/2022 8:43 AM CDT): The esophageal varices and portal gastropathy are resolved on his most recent upper endoscopy. We will see him back in six months. Assessment & Plan (01/06/2021 11:00 AM CDT): He is doing well on current therapy. Denies any new symptoms of concern. Monitor clinically. Follow-up with GI as needed. Assessment & Plan (06/30/2019 2:18 PM HOT WOUND SPRING PRODUCTION SUPERVISOR): He has esophageal varices from alcoholic cirrhosis. He is being followed by Dr. Davison. The patient was just there about one week ago. He forgot to ask the question of adding a beta-saturnino like Corgard. We will make additional inqueries. Assessment & Plan (02/27/2019 2:11 PM CDT): He has varices that are being followed closely by Dr. Davison at [facility]. Labs recently have been stable. He will keep his follow ups with GI. Gastroesophageal reflux disease without esophagi tis 05/16/2018 Assessment & Plan (01/24/2024 2:21 PM CDT): Chronic, controlled. The most recent EGD from about one year ago was negative for evidence of esophageal varices. He has a follow-up with GI at [facility] in three days. Assessment & Plan (07/23/2023 2:13 PM HOT WOUND SPRING PRODUCTION SUPERVISOR): He continues on famotidine twice a day. This seems to be controlling symptoms. Assessment & Plan (01/18/2023 2:39 PM CDT): He complains of epigastric discomfort and heartburn in the evening. He drinks about nine cups of coffee a day and this is likely contributing to these symptoms. Abdominal exam is benign. We recommended that he cut back on coffee and follow- up with his GI specialist, Dr. Padilla. Assessment & Plan (07/20/2022 11:25 AM HOT WOUND SPRING PRODUCTION SUPERVISOR): Despite being on famotidine twice a day, he has fairly frequent epigastric pain and heartburn symptoms. He attributes some to feeling stressed. He denies trouble swallowing. We discussed options for treatment including switching to a PPI, but in the end he decided to stay on the famotidine. He will keep his follow ups with GI at [facility]. Assessment & Plan (07/14/2021 11:18 AM HOT WOUND SPRING PRODUCTION SUPERVISOR): He says symptoms are well controlled with famotidine. Continue same. Assessment & Plan (01/06/2021 11:02 AM CDT): He is doing well on famotidine. He denies having reflux symptoms at this time. Assessment & Plan (07/16/2020 3:42 PM HOT WOUND SPRING PRODUCTION SUPERVISOR): He continues on famotidine twice a day, and denies any new symptoms of concern. Continue same. Assessment & Plan (01/05/2020 12:13 PM CDT): He is now just on famotidine for acid reflux and to reduce risk of variceal hemorrhage. Assessment & Plan (06/30/2019 2:16 PM HOT WOUND SPRING PRODUCTION SUPERVISOR): He continues on H2 blockers and a PPI. This is from his GI physician, Dr. Davison. There may be an FDA recall on ranitidine. If so he can substitute famotidine. He also has occasional chest discomfort which could be from GE reflux. If it is frequent, progressive or severe, he should get it checked out in the emergency room. We will look for any previous cardiac workup done at [facility], but we have nothing on file at the moment. Currently his chest pain is not exertional, occurs primarily at rest. It seems fairly mild. Assessment & Plan (05/05/2019 12:27 PM CDT): He remains on both a PPI and an H2 saturnino as prescribed by his GI specialist, Dr. Davison. This is to help control possible damage to esophageal varices. Continue same. He had a scheduled follow-up with Dr. Davison this morning, but the appointment had to be changed so he will be seeing him in June. We will see him back here in about four months. Assessment & Plan (03/30/2019 3:14 PM CDT): He is on two different acid suppressive medications recommended by his talent acquisition partner, Dr. Davison. The pantoprazole might be one that is associated with memory issues/dementia. We discussed this today. I asked him to discuss this matter with Dr. Davison. Perhaps the patient could manage just with the ranitidine. We will review again at his three month follow-up. Assessment & Plan (02/27/2019 2:08 PM CDT): He is on an H2 saturnino and a PPI from GI service. Apparently both are needed to reduce risk of bleeding and control symptoms. Continue same. Subclinical hypothyroidism 05/04/2018 Overview (02/27/2019): Borderline TSH, [facility]. Assessment & Plan (07/23/2023 2:16 PM HOT WOUND SPRING PRODUCTION SUPERVISOR): Most recent thyroid hormone levels are normal. He is not requiring treatment at this time. Lab Results Component Value Date TSH 1.37 06/24/2023 Assessment & Plan (01/18/2023 2:38 PM CDT): He drinks lots of coffee to stay warm. We advised him to cut back because of heartburn problems. We will check follow-up labs before his next visit in six months. Assessment & Plan (07/20/2022 11:27 AM HOT WOUND SPRING PRODUCTION SUPERVISOR): We are monitoring a sometimes mildly elevated TSH. Labs will be checked again before his next visit in six months. Assessment & Plan (07/15/2021 10:43 AM HOT WOUND SPRING PRODUCTION SUPERVISOR): A recent TSH was normal. We will monitor periodically. Lab Results Component Value Date TSH 1.810 01/01/2021 Assessment & Plan (01/06/2021 11:00 AM CDT): He had a borderline TSH in the past. We are monitoring with periodic lab values. Lab Results Component Value Date TSH 1.810 01/01/2021 Assessment & Plan (07/08/2020 11:41 AM HOT WOUND SPRING PRODUCTION SUPERVISOR): His last TSH was borderline elevated about two years ago. We will check a follow-up before his next visit in about six months. Assessment & Plan (01/05/2020 12:14 PM CDT): We are monitoring his somewhat borderline TSH level. He will have another one checked with his next set of labs at [facility]. Assessment & Plan (04/08/2019 4:02 PM CDT): We are monitoring this situation without treatment at this time, but if follow- up labs indicate a need for treatment, it will be introduced. Mild cognitive impairment with memory loss 03/16 Overview (04/08/2019): Subjective memory difficulties. Assessment & Plan (08/01/2024 5:25 AM H[employer] SUPERVISOR): Chronic, diagnosed about five years ago, stable. Donepezil therapy was interrupted briefly, but he resumed taking it a few days ago. He does not report any diarrhea. Sleep-wake cycles are disrupted. He is up much of the night. Some of this is due to increased urinary frequency and urgency, see discussion elsewhere. He has a visit with the memory clinic in two days, and his will discuss therapy with them at that time. Assessment & Plan (06/25/2024 6:16 AM H[employer]ING [employer] SUPERVISOR): Chronic, present for five or more years, possibly contributed to his recent fall with injury. He apparently did not understand instructions when he asked for the bathroom and took a wrong turn, falling down steps into the garage. CT head was negative for acute findings. Currently he is alert, speech is fluent. He seems to be at his baseline. He was having possible drug drug interactions with donepezil so he is not currently taking this medication. Follow-up in six weeks. Assessment & Plan (01/31/2024 5:08 AM CDT): Chronic, uncontrolled. He is taking donepezil 10 mg nightly, but subjectively both he and his think his memory is getting worse. He has a follow-up with the memory unit at [facility] in a few days so we will see what their assessment shows. In the meantime, continue current therapy. Assessment & Plan (07/23/2023 2:14 PM H[employer]ING [employer] SUPERVISOR): He saw Dr. Donis's nurse practitioner. No changes were made in therapy. He is considered have mild deficits at this time and will continue on donepezil. Assessment & Plan (02/02/2023 9:45 AM CDT): He continues to have difficulty remembering things, asks his multiple times about the same issues. Has more trouble with short-term memory than long-term memory. He is on Aricept and seems to be tolerating it. No diarrhea. He may be having some auditory hallucinations at night (hearing the voices of neighbors arguing which his does not hear). He will keep his follow ups with the neurocognitive specialists at [facility], next visit is in May. Assessment & Plan (07/15/2021 10:45 AM H[employer]ING [employer] SUPERVISOR): He worries about his memory. Sometimes he can not remember what day it is. Sometimes he reorganizes things, and then can not remember where he put important objects. His memory seems worse when he gets anxious. He is on Paxil which might be helping his anxiety little bit. We have tested him in the office and did not find any major cognitive deficits in the past. He had a normal TSH recently, and a CT head without contrast from 2 years ago showed mild diffuse atrophy. We will check a B12 level. Depending on results, consider referral to the Memory Clinic at [facility]. Assessment & Plan (01/12/2021 3:13 PM CDT): He again complains of trouble with his memory. He has not gotten lost while driving, but only takes certain routes instead of short cuts because of his memory concerns. A mini-mental state exam 18 months ago was normal. We ordered a trail test today which he completed error free in 2 minutes. I think he is doing fine. Some of his c ognitive impairment could be related to his anxiety and lack of focus. We are trying a higher dose of Paxil. We will see him back in six months, or sooner if needed. Assessment & Plan (07/08/2020 11:39 AM H[employer] SUPERVISOR): He seems to be doing well. He was fully functional in the office during the visit. Continue to monitor clinically. Assessment & Plan (05/14/2019 2:11 PM CDT): He was worried about his memory, but he scored very well on the mini-mental status exam administered at [facility] () and he seems reassured. We will see him back in four months or sooner as needed. Alcoholic cirrhosis of liver without ascites 08/2017 Overview (07/23/2023): Sees GI at [facility]. Assessment & Plan (07/31/2024 1:49 PM [employer] SUPERVISOR): Chronic, present for more than five years, currently compensated. He has not had an alcoholic beverage for at least six years. We will monitor with frequent office visits. Assessment & Plan (01/24/2024 2:20 PM CDT): Chronic, controlled but at risk. He has a follow-up with GI at [facility] this . We ordered a follow-up ultrasound as he has not had imaging of the liver for several years. Return here in six months. Assessment & Plan (08/07/2023 3:14 PM H[employer]ING [employer] SUPERVISOR): He will schedule a follow-up with GI at [facility], last visit with them was in October of last year. I recommended they discuss follow-up imaging of the liver. Alpha fetoprotein last year was low. Assessment & Plan (07/20/2022 11:20 AM H[employer] SUPERVISOR): He has not had an alcoholic drink in 40 years. He seems to be stable. He sees GI at [facility] periodically. Continue same. Assessment & Plan (01/16/2022 12:12 PM CDT): His exam is stable. There is no swelling in his legs. His most recent endoscopy was negative for evidence of varices or portal gastropathy. He is staying completely away from alcohol. We will see him back in six months. Assessment & Plan (07/14/2021 11:18 AM H[employer] SUPERVISOR): Abdominal exam is benign. We continue to monitor clinically. He has abstained from alcohol for three years now. He has a mild thrombocytopenia which is likely due to past alcohol use, possibly some mild splenomegaly. Assessment & Plan (01/06/2021 11:02 AM CDT): He has seen Dr. Minor periodically in the past, who is moving out of the local area soon. We will arrange for follow-up with GI as needed the patient says he is abstaining from alcohol. Assessment & Plan (07/08/2020 11:35 AM H[employer]ING [employer] SUPERVISOR): He is seeing Dr. Minor. A recent ultrasound of the liver was unremarkable. He is staying off of alcohol. He is been dry for two years now. We will see him back in six months. Assessment & Plan (01/14/2020 11:53 AM CDT): He is clinically stable. He has not had any alcoholic beverage for 18 months. He is followed at [facility] by Dr. Davison. Serial alpha fetoprotein and ultrasounds are planned. Labs are stable. Follow-up here in six months. Assessment & Plan (06/30/2019 2:10 PM H[employer] SUPERVISOR): He is doing well. He is being followed by Dr. Davison. No complications noted to date. We will see him back in six months. Assessment & Plan (03/30/2019 3:13 PM CDT): He will be following up with Dr. Davison soon for another EGD to check on his varices. He is abstaining from alcohol, has not had a drink in 10 months now. He is worried about memory being affected by years of alcohol use. Sometimes he gets confused by directions. We will have him get some formal memory testing in Psychology. Follow-up here in three months. Assessment & Plan (02/27/2019 2:06 PM CDT): He was diagnosed about a year ago with alcoholic cirrhosis. 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 They have been banded several times by Dr. Davison. He has had imaging and alpha fetoprotein which show no evidence of liver cancer. Currently he is on minimal medications. He has no ascites on ultrasound. Question is whether a beta-saturnino would be indicated. We will touch base with GI. Follow-up here in one month for a recap. Benign prostatic hyperplasia with urinary freque ncy 02/13/2015 Overview (07/31/2024): He is a candidate for prostatic artery embolization, but a trial of finasteride recommended first. Assessment & Plan (08/01/2024 5:24 AM H[employer] SUPERVISOR): Chronic, diagnosed about 10 years ago, uncontrolled. He has lower urinary tract symptoms and recently developed urinary urgency with urge incontinence. It seemed to start after he received a prescription for finasteride. I consulted his urologist, Dr. Walsh, via secure chat. Urinary urgency is not a known side effect of this medication, so we are checking a urinalysis for infection, see discussion elsewhere. Assessment & Plan (07/23/2023 2:13 PM [employer] SUPERVISOR): He urinates frequently. It is not clear that the Flomax is making too much of a difference as he is up several times a night to urinate as well. PSA recently was normal. He declined YAN today. Assessment & Plan (01/18/2023 2:35 PM CDT): He gets up at night twice to urinate which apparently is an improvement since starting Flomax. He denies dysuria or hematuria. Continue same. Assessment & Plan (07/20/2022 11:24 AM H[employer]ING [employer] SUPERVISOR): He denies trouble urinating. He is on tamsulosin. He declined YAN, but says he will get a PSA with his next blood draw. Assessment & Plan (01/16/2022 12:12 PM CDT): He still gets up at night frequently to urinate despite taking Flomax. He denies dysuria or hematuria. We will consider other workup as needed. Assessment & Plan (07/08/2020 11:36 AM H[employer] SUPERVISOR): He gets up at night once or twice to urinate, depending on what he drinks before bedtime. He denies any dysuria or hematuria. We had a full discussion of the risks versus benefits of prostate cancer screening. He did not want a rectal exam or a PSA screen. We will monitor clinically. Assessment & Plan (01/14/2020 11:53 AM CDT): He urinates at least 8 times over a 24 hour period, and at least 3 times at night. It interferes with his sleep. He denies dysuria or hematuria. We discussed strategies including cessation of fluid intake at least 1 hour before bedtime, and voiding completely before bedtime. We will also increase the dose of tamsulosin/Flomax to see if this helps. We discussed the options of adding finasteride/Proscar or a similar medication, risks of medication discussed, versus referral to urology. The patient would like to see a urologist. Arrangements will be made. Assessment & Plan (06/30/2019 2:15 PM H[employer] SUPERVISOR): He does not think the Flomax is helping his symptoms much, but they do not seem severe or progressive. He has no trouble initiating urination. He does have nocturia x2 or 3. We discussed decreasing fluid intake about 2 hours before bedtime and voiding completely before bedtime. This may help. Consider additional evaluation or treatment as needed. Assessment & Plan (02/27/2019 2:08 PM CDT): He has a moderately enlarged prostate. He has urinary frequency and nocturia. We discussed pros and cons of further workup and treatment for example Urology referral, PSA testing. He declines any additional testing or referral at this time. We will start him on some tamsulosin to see if this helps his symptoms. Pain of foot 07/25/2013 Assessment & Plan (06/12/2023 3:26 PM CDT): He has a history of flat feet and other deformities. He had surgery on the right foot which did not help. Gait is abnormal consistent with this history, i.e. somewhat short stepped and shuffling with bilateral valgus deviation of the feet, but without ataxia or myelopathic features. He also continues to deny urinary or fecal retention or incontinence. We will monitor clinically. Persistent mood disorder 02/13/1970 Overview (02/27/2019): Self medicated with alcohol. Started in/after college. Assessment & Plan (08/01/2024 5:30 AM H[employer] SUPERVISOR): Chronic, present for decades, fair control. He is currently taking paroxetine 20 mg daily. He denies depressive symptoms. Continue same. Assessment & Plan (06/25/2024 6:18 AM H[employer] SUPERVISOR): Chronic, present for decades. He might be a little excessively sedated from paroxetine 20 mg daily and newly prescribed quetiapine 50 mg at nighttime. He also takes trazodone 50 mg at night to help him sleep. We cut the dose of quetiapine in half. Further modification may be needed, follow-up in six weeks as currently scheduled. Assessment & Plan (01/31/2024 5:10 AM CDT): Chronic, poor control. His mood is not the greatest. He can not get out and enjoy himself due to his neck pain. He also is experiencing memory loss. He has a follow-up with the memory specialists in a few days. He takes Paxil 20 mg daily, and Aricept 10 mg daily. Continue same. Assessment & Plan (07/23/2023 2:16 PM H[employer] SUPERVISOR): His mood is not the greatest, especially with his recent neck pain problems, but he says he is doing okay on the Paxil. Assessment & Plan (01/18/2023 2:37 PM CDT): He says his mood is good. Continue Paxil 20 mg daily. Assessment & Plan (08/06/2022 8:30 AM H[employer]ING [employer] SUPERVISOR): He gets easily stressed out. He is also worried about his memory. He forgets grandkids' names. Sometimes he can not remember the month. We have done a little bit of formal testing in the office including a trail test which he passed with flying colors. B12 and TSH were normal recently. CT showed age-appropriate changes. We offered additional cognitive testing in the office or referral, and he prefers to follow-up with a specialist at the [facility]. We will submit a referral. Assessment & Plan (02/06/2022 8:42 AM CDT): He used to self medicate with alcohol, but is abstaining. He experiences a fair amount of generalized anxiety. He worries that he worries about silly things. His worrying distracts him from day-to-day activities and interferes with memory. He forgets where he put his wallet. He relies on his ana jacome much. He stopped taking Paxil. It sounds like he only took it as needed. We discussed that Paxil is probably not effective if taken infrequently as needed. He would like to try a daily low-dose which we sent in today. Follow-up early as needed if not improving. Assessment & Plan (07/14/2021 11:20 AM H[employer]ING [employer] SUPERVISOR): He has trouble with anxiety, especially about his memory. He denies feeling depressed as such. He is staying away from alcohol. We will continue medication and supportive care. Assessment & Plan (01/06/2021 11:01 AM CDT): He continues to have a fair amount of anxiety and irritability. He used to be on a benzodiazepine, currently is on paroxetine. We will increase the dose from 10 mg to 20 mg daily. He is not currently interested in pursuing any kind of counseling. Assessment & Plan (07/08/2020 11:42 AM H[employer]ING [employer] SUPERVISOR): He is doing well on paroxetine 10 mg daily. Continue same and supportive care. He does describe some retrosternal chest pressure, perhaps 5/10 in severity which occurs when he is anxious. There is no association with other symptoms. There is no radiation of the pain. He had a previous evaluation for ischemic heart disease with a nuclear stress test at [facility] about two years ago. Everything was normal at that time. He does not want any additional workup at this time. If he gets severe or persistent chest pain, he knows to go to the emergency room. Assessment & Plan (01/05/2020 12:13 PM CDT): He seems to be doing well on generic Paxil at a relatively low dose. Continue same and follow-up in six months. Assessment & Plan (06/30/2019 2:16 PM H[employer]ING [employer] SUPERVISOR): He says the Paxil is really helping his anxiety a lot. Continue same. Assessment & Plan (05/05/2019 12:25 PM CDT): His mood is much more stable with Paxil taken every day. He plans to continue this medication. Follow-up in four months. Assessment & Plan (03/30/2019 3:17 PM CDT): His mood seems pretty cheerful. He was a little uncertain about what medications he is taking for his mood. We again discussed that he should minimize if not eliminate alprazolam/Xanax which was prescribed at [facility], as it can actually make mood worse and could interfere with memory which is one of his concerns. He should take the Paxil daily, as it is not effective when taken as needed. Follow-up in three months or sooner as needed. Assessment & Plan (03/11/2019 3:06 PM CDT): He has probably been self medicating with alcohol for most of his life. It started during or shortly after college. Apparently he was a heavy drinker for many years and was advised by several doctors along the way that he should cut back or face potential consequences. He now has s tage II cirrhosis. 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 He has quit drinking as of about eight months ago. He does have significant anxiety several times a week and has been using alprazolam in the past on an as needed basis. I recommend that he avoid using this medication as much as possible. We will start him on Paxil, and see him back in one month. Depending on response, consider referral to Psychiatry for further evaluation and treatment. Resolved Problems Problem Noted Date Diagnosed Date Resolved Date Skin lesion 08/02/2020 01/10/2022 Overview (01/10/2022): Added automatically from request for surgery [id number], right lower leg papule excised 07/24/2020, Dr. Caraballo. Atypical cells, referred to [facility]. [place] reports atypical cystic squamous proliferation with chronic inflammation, positive margin. Conservative complete excision recommended which was performed 08/30/2020. Assessment & Plan (10/22/2020 9:59 AM H[employer]ING [employer]ODUCTION SUPERVISOR): Patient can Leave everything open to air. Soap and water and showers is fine. Would hold off on submerging incision for another few weeks. We will see him back 1 further time and a month to reassess. They will call back with any further questions or concerns. Assessment & Plan (10/17/2020 9:48 AM H[employer]ING [employer] SUPERVISOR): All remaining scab has Been removed. The graft has roughly a 95% take. We have placed Adaptic gauze and tape just for the minimal bleeding at where we removed the last piece of scab. We will see him back next Wednesday. After today they can take the dressing off, shower and just leave open to air Assessment & Plan (10/15/2020 10:41 AM H[employer]ING [employer] SUPERVISOR): Remaining scabs have been removed. The last few will continue to loosen up as a showers. He can now leave it open to air and on covered. We will see him back on Assessment & Plan (10/10/2020 9:24 AM H[employer]ING [employer]ODUCTION SUPERVISOR): The graft site continues to fill in nicely. Some more the scab has been removed as they were much looser with the Vaseline dressing. We will see him back again next Wednesday. The will change the dressing over the weekend. Assessment & Plan (10/08/2020 1:41 PM H[employer]ING [employer] SUPERVISOR): Each visit we unroof some the old scab and returns. I favor may be as it heals it itches any scratches it in the middle of the night which reform the scabs. All in all however there is no erythema and again the graft has taken quite well. We will continue Adaptic for another week or 2 just to loosen this area up and see him back on a frequent basis to unroof these lesions untill they stop forming. Assessment & Plan (09/27/2020 10:03 AM H[employer]ING [employer]ODUCTION SUPERVISOR): Continue Adaptic to graft base. Cover with 4 x 4 gauze, Kerlix and Matias wrap. to change on Wednesday. We will see him back on Wednesday. Some of the scab has been removed to facilitate healing. Assessment & Plan (09/26/2020 9:17 AM H[employer]ING [employer] SUPERVISOR): Scabbing of the tissue has been removed at bedside. We will continue the Adaptic to keep the area moistened at least another week. We will see him back this Wednesday. Assessment & Plan (09/17/2020 10:32 AM H[employer]ING [employer] SUPERVISOR): Remaining desmond have been removed. Some of the scab has also been removed at bedside. No dressing needed at the donor site. They will continue with the Vaseline gauze and Matias wrap to the leg. They will continue to change every 3rd day. This will likely need to be done for a further 2 weeks and then we can just leave open to air. Assessment & Plan (09/10/2020 11:26 AM H[employer]ING [employer]ODUCTION SUPERVISOR): I have recovered both the donor and graft site with Vaseline gauze. The will change it next on Wednesday. At that change the donor site can now be left open to air. She will continue a Vaseline gauze to the graft site, cover with 4 x 4 gauze, Kerlix and Matias wrap. We will see him back next Wednesday. Half of the desmond will be removed today Assessment & Plan (09/05/2020 1:39 PM H[employer]ING [employer] SUPERVISOR): Both sites continue to heal well. I will leave the desmond in at the skin graft site for another week or so. We will continue Vaseline gauze to the donor site as well as over the graft and held them in place with 4 x 4 gauze, Kerlix and Mtaias wrap. The will change the dressing next time on Wednesday and then will see him back in the office on Wednesday to reassess. 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 Assessment & Plan (11/19/2020 10:35 AM CDT): Patient's wounds have completely healed nicely. No further follow-up necessary at this time. Patient will call us back with any further questions or concerns. Assessment & Plan (07/16/2020 3:43 PM H[employer]ING [employer] SUPERVISOR): About 2-3 months ago, he noticed a growth on the right lower love. It was at the edge of a patch of chronically inflamed skin he has had for years. Exam shows a probable keratoacanthoma measuring approximately 2 x 3 cm. The patch of chronically inflamed skin measures approximately 5 cm in largest dimension and is somewhat oval in shape. He used to see a property appraiser about this abnormal patch of skin, and got some creams, but has had no treatment for it for many years. We will refer him to surgery for excision. It could be a somewhat complicated surgery because of the size of the lesion and associated skin abnormality. A skin graft may be needed. Encounters Date Type Department Care Team Description 10/24/2024 Results Follow-Up [facility] [address] [place] [address] Jayme Beltrán MD 10/14/2024 Orders Only [facility] [address] [place] [id number] Jayme Beltrán MD 10/05/2024 Telephone [facility] [address] [place] [address] Jayme Beltrán MD 09/26/2024 Telephone [facility] [address] [place] [address] Jayme Beltrán MD 09/22/2024 Telephone [facility] [address] [place] [address] Jayme Beltrán MD Labs Only 09/21/2024 Orders Only [facility] - Interventional Radiology [address] [place] [id number] Lisa Gunderson RN Benign prostatic hyperplasia with urinary frequency (Primary Dx) 09/19/[address] [facility] Radiology, Interventional Radiology [address] [facility] [address] [phone] Sonia Cruz, SEAN rx 09/18/2024 1:30 PM [employer] SUPERVISOR Telemedicine [facility] Radiology, Interventional Radiology [address] [phone] Arpit Joy MD Enlarged prostate with urinary obstruction (Primary Dx) 09/17/2024 Telephone [facility] [address] [place] [address] Jayme Beltrán MD 09/15/2024 Telephone [facility] [address] [place] [address] Sulma Castaneda, SEAN 08/30/[address] [facility], Interventional Radiology [address] [phone] Sonia Cruz, RN Appointment 08/25/2024 11:15 AM H[employer] SUPERVISOR Office Visit [employer] at [address] [place] [phone] Allyn Gilman MD Palpitations (Primary Dx); Orthostatic hypotension from Last 3 Months Immunizations Immunization Administration Dates Next Due COVID-19 mRNA ([employer]) 0.3 m L (30 mcg) vaccine (12 years and up) 06/05/2023 Hep A / Hep B 05/04/2019,12/03/2018,10/31/2018 Influenza, Quad, Adjuvantate d, Intramuscular 06/05/2023,06/02/2021 Influenza, Quadrivalent, Hig h Dose, Preservative Free, Intrr 05/11/2022,05/03/2020 Influenza, Trivalent, Adjuva nted, Intramuscular 06/08/2019 Influenza, Trivalent, High D ose, Split, Preservative Free, Intramuscular 06/21/2024,05/24/2018,05/15/2017,06/17,06/02/2015,05/28/2015 Influenza, Trivalent, IM (MDV) 4,05/17/2013,06/19/2005,07/28 Influenza, Unspecified 05/28/2015 Novavax COVID-19 5MCG/0.5ML Vaccine 08/19/2024 [employer] SARS-CoV-2 Monovalent Vaccination (12+ Yrs) PURPLE 11/02/2020,10/10/2020 [employer] Sars-Cov-2 Bivalent V accination (12+ YRS) 04/26/2022 Pneumococcal Conjugate PCV 13 04/18/2019 Pneumococcal Polysaccharide PPV23 01/05/2020,08/2007 RSV Vaccine, Pref, Recombina nt, Subunit, Adjuvanted, PF, IM (Arexvy) 07/31/2023 Tdap 07/31/2023,05/28/2010 ZOSTER LIVE 06/01/2014,05/17/2013 ZOSTER Recombinant 01/02/2019,10/31/2018 Surgical History Surgery Date Site/Laterality Comments HM COLONOSCOPY 05/10/2018 Poor prep, recctal varices, diverticuli, Dr. Davison, [facility]. Repeat with 2 day prep recommended. ESOPHAGOGASTRODUODENOSCOPY 05/16/2018 Dr. Davison, [facility]. ESOPHAGOGASTRODUODENOSCOPY W / BANDING 06/13/2018 Dr. Davison, [facility]. ESOPHAGOGASTRODUODENOSCOPY 10/25/2018 Biopsies of various locations. Dr. Davison, [facility]. ESOPHAGOGASTRODUODENOSCOPY 02/27/2019 Dr. Davison, [facility]. ESOPHAGOGASTRODUODENOSCOPY 09/25/2019 Esophageal varices surveillance, scars from prior banding, small distal varices, PHG, Dr. Davison, [facility]. COLONOSCOPY 07/02/2011 Diverticuli, hemorrhoids, Dr. Minor, [facility]. ANKLE SURGERY 08/16/2005 - 08/15/[address] Victorino Groves, [facility],. Hardware used, ligament transplant, details lacking. LEG SKIN LESION BIOPSY / EXCISION 07/24/2020 Right Large right lower leg papule, atypical cells, referred to [facility], Dr. Reed. [place] reports atypical cystic squamous proliferation with chronic inflammation, positive margin. Conservative complete excision recommended. ESOPHAGOGASTRODUODENOSCOPY 07/30/2020 Mild pre-pyloric gastritis, portal gastropathy, flat varices, Dr. Minor, [facility]. SKIN LESION EXCISION 08/30/2020 Right Wide excision, skin lesion of right lower leg, followed by skin graft from right thigh. COLONOSCOPY 11/11/2020 Nonspecific vascular lesions, diverticuli and internal hemorrhoids, Dr. Minor, [facility]. ESOPHAGOGASTRODUODENOSCOPY 09/03/2021 N/A Normal except for mild gastric erythema. No varices or portal gastropathy. Dr. Randy Ross, [facility] ESOPHAGOGASTRODUODENOSCOPY 02/23/2023 Normal, [facility], Dr. Padilla. Medical History Medical History Date Comments Alcoholic cirrhosis of liver without ascites (HCC) 02/13/[address] Davison, [facility]. Benign prostatic hyperplasia with urinary frequency 02/13/2015 Gastroesophageal reflux dise ase without esophagitis 05/16/2018 Persistent mood disorder 02/13/1970 Self me dicated with alcohol. Started in/after college. Secondary esophageal varices without bleeding (HCC) 05/16/2018 Multiple EGDs, [facility], Dr. Davison, [facility]. S/P banding on 09/13/17. Skin lesion 08/02/2020 Added automatica lly from request for surgery [id number], right lower leg papule excised 07/24/2020, Dr. Caraballo. Atypical cells, referred to [facility]. [place] reports atypical cystic squamous proliferation with chronic inflammation, positive margin. Conservative complete excision recommended which was performed 08/30/2020. 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 Family History Medical History Relation Name Comments Multiple myeloma Father Details omar camacho. Cancer Mother Details lacking . Heart disease Mother Details danielle mcduffieJuan Relation Name Status Comments Father Mother Social History Tobacco Use Types Packs/Day Years Used Date Smoking Tobacco: Former Cigarettes 1 14 0 02/13/1966 - 02/14/1980 Smokeless Tobacco: Never Tobacco Cessation:Counseling Given: Not Answered Alcohol Use Standard Drinks/Week Comments Not Currently 0 (1 standard drink = 0.6 oz pur e alcohol) PHQ-2 Answer Date Recorded PHQ-2 Total Score (If total score is 3 or more points, staff should administer the PHQ-9) 0 07/31/2024 Personal Safety Answer Date Recorded Have you ever been in or are you currently in a harmful physical or emotional relationship or is someone making you feel afraid or unsafe? Denies 08/01/2023 Sex and Gender Information Value Date Recorded Sex Assigned at Not on file Legal Sex Male 12:36 AM [employer] Gender Identity Not on file Sexual Orientation Not on file Obstetrics History Last Filed Vital Signs Vital Sign Reading Time Taken Comments Blood Pressure 131/77 08/25/2024 11:03 AM [employer] SUPER[employer] Pulse 60 08/25/2024 11:03 AM [employer] SUPER[employer] Temperature 36.8 C (98.2 F) 08/02/2024 10:57 AM [employer] SUPER[employer]OR Respiratory Rate 16 07/31/2024 1:03 PM [employer] SUPER[employer]OR Oxygen Saturation 97% 08/02/2024 10:57 AM [employer] SUPER[employer]OR Inhaled Oxygen Concentration - - Weight 73.2 kg (161 lb 6.4 oz) 08/25/2024 11:03 AM [employer] SUPER[employer] Height 160 cm (5' 3 ) 08/25/2024 11:03 AM [employer] SUPER[employer] Body Mass Index 28.59 08/25/2024 11:03 AM [employer] SUPERVISOR Plan of Treatment Health Maintenance Due Date Last Done Comments Covid-19 Vaccine (7 - 2023-2 5 season) 2025 08/19/2024, 06/05/2023, 04/26/2022, Additional history exists Depression Screening 07/31/2025 07/31/2024, 07/23/2023, 07/23/2023, Additional history exists Fall Risk Assessment 07/31/2025 07/31/2024, 07/23/2023, 07/20/2022, Additional history exists Well Visit 65+ 07/31/2025 07/31/2024, 03/2023, 07/20/2022, Additional history exists DTaP/Tdap/Td Vaccine (3 - Td or Tdap) 07/31/2033 07/31/2023, 05/28/2010 Hepatitis C Screening Completed 05/04/2018 Zoster Vaccine Completed 01/02/2019, 10/14, 06/01/2014, Additional history exists Pneumococcal vaccine 65+ Completed 020, 04/18/2019, 08/16/2007 Colon Cancer Screening-CT Colonography Discontinued 11/11/2020 Colon Cancer Screening-Colonoscopy Discontinued 11/11/2020 Colon Cancer Screening-DNA Stool Discontinued 11/12/19 Colon Cancer Screening-FIT Discontinued 11/11/2020 Colon Cancer Screening-FOBT Discontinued 11/11/2020 Colon Cancer Screening-Sigmoidoscopy Discontinued 11/11/2020 Colorectal Cancer Screening Discontinued Influenza Vaccine Completed 06/21/2024, , 05/11/2022, Additional history exists Abdominal Aortic Aneurysm (A AA) Screen Completed 10/14/2024, 12/29/2019 Procedures Procedure Name Priority Date/Time Associated Diagnosis Comments SCAN - RADIOLOGY/IMAGING 10/14/2024 URINE CULTURE Routine 09/25/2024 12:26 PM [employer] REFLEXIVE URINE CULTURE Routine 09/25/2024 12:26 PM [employer]OR URINALYSIS AND REFLEX TO MICROSCOPIC AND CULTURE Routine 09/25/2024 12:26 PM [employer] Confusion Memory change HM COLONOSCOPY Routine 11/11/2020 ABDOMINAL AORTIC ANEURYSM SCREENING Routine 12/29/2019 HEPATITIS C SCREENING Routine 05/04/2018 from Last 3 Months or Most Recently Relevant to Health Maintenance Results * SCAN - RADIOLOGY/IMAGING (10/14/2024) Anatomical Region Laterality Modality Other us Jayme Beltrán MD Final Result * REFLEXIVE URINE CULTURE (09/25/2024 12:26 PM [employer] SUPER[employer]) Urine culture [facility] Comment:CULTURE INDICATED - RESULTS TO FOLLOW 09/25/2024 12:2 6 PM [employer] SUPERVISOR 09/25/2024 12:28 PM [employer]PERVISOR us Jayme Beltrán MD LAB MICROBIOLOGY - GENERAL OR DERABLES Final Result [facility] [address] [place] [address] * (ABNORMAL) Urinalysis reflex to microscopic and culture Urine, clean voided (09/25/2024 12:26 PM [employer]PER[employer]) Color, ur DARK YELLOW YELLOW [facility] Appearance, ur CLEAR CLEAR [facility] Specific gravity 1.024 1.001 - 1.035 [facility] pH, ur 6.0 5.0 - 8.0 [facility] Glucose, ur NEGATIVE NEGATIVE [facility] Bilirubin, ur NEGATIVE NEGATIVE [facility] Ketones, ur TRACE(A) NEGATIVE [facility] Blood, ur NEGATIVE NEGATIVE [facility] Protein, ur, quant NEGATIVE NEGATIVE [facility] Nitrites, ur NEGATIVE NEGATIVE [facility] Leukocyte esterase, ur TRACE(A) NEGATIVE [facility] WBC, ur NONE SEEN < OR = 5 /HPF [facility] RBC, ur NONE SEEN < OR = 2 /HPF [facility] Epithelial cells, squamous, ur NONE SEEN < OR = 5 /HPF [facility] Bacteria, ur, quant NONE SEEN NONE SEEN /HPF [facility] Hyaline cast NONE SEEN NONE SEEN /LPF [facility] Note [facility] Comment: This urine was analyzed for the presence of WBC, RBC, bacteria, casts, and other formed elements. Only those elements seen were reported. Urine, clean voided 09/25/2024 12:26 PM [employer]PER[employer] 09/25/2024 12:28 PM [employer] SUPERVISOR Result [facility] Jayme Beltrán MD LAB MICROBIOLOGY - GENERAL OR DERABLES Final Result Performing Organization Address [facility] Co de Phone Number [facility] [address] [facility] [address] [place] [address] * Urine culture (09/25/2024 12:26 PM [employer] SUPER[employer]OR) Urine culture [facility] Comment: CULTURE, URINE, ROUTINE Micro Number: [id number] Test Status: Final Specimen Source: Urine Specimen Quality: Adequate Result: No Growth 09/25/2024 12:2 6 PM [employer]PER[employer]OR 09/25/2024 12:28 PM [employer] SUPERVISOR Result [facility] Jayme Beltrán MD LAB MICROBIOLOGY - GENERAL OR DERABLES Final Result Performing Organization Address [facility] de Phone Number [facility] [facility] [address] [place] [address] * COLONOSCOPY (11/11/2020) Scribed Colonoscopy Normal Impressions Jayme Beltrán MD - 11/11/2020 Otherwise normal colonoscopy, [facility]. Details can be found in full report. Narrative Jayme Beltrán MD - 11/11/2020 Nonspecific vascular lesions, diverticuli and internal hemorrhoids, Dr. Minor, [facility]. Result [facility] Historical Provider HEALTH MAINTENANCE Final Result * HEPATITIS C SCREENING (05/04/2018) HEP C Normal Comment:Result in [facility] here, [facility]. Historical Provider HEALTH MAINTENANCE Final Result from Last 3 Months or Most Recently Relevant to Health Maintenance Insurance [employer]ICARE T MEDICARE Advance Directives For more information, please contact: [phone] Documents on File Type Date Recorded Patient Manager Safe Expl anation ADVANCE DIRECTIVE 08/03/2024 9:39 AM JAKE Dewey [employer] * Full Code (Latest Code Status on File) Date Activated Date Inactivated Comments 08/30/2020 12:41 PM 09/03/2020 8:04 PM [facility] Distribution Center Administrator Relationship Specialty Start Date End Date Jayme Beltrán MD [address] [address] PCP - General Infectious Diseases 02/27/19 Jayme Donis MD PhD [address] [place] [address] Referring Physician Neurology 10/05/22 Oz Hannah, [address] [place] [address] Consulting Physician Optometry 05/14/23 Blayne Gutierrez MD PhD [address] [place] [address] Consulting Physician Radiology 07/09/23 Yue Heaton NP [address] DEPT NEUROLOGICAL SURGERY[address] [address] Nurse Practitioner Neurosurgery 04/28/24 Ciro Magana NP [address] [place] [address] Nurse Practitioner Neurology 06/20/24 Arpit Joy MD [address] [place] [address] Consulting Physician Interventional Radiology and Diag Radiology 07/20/24 [place] [address] [place] [address] Consulting Physician Urology 07/17/24 Allyn Gilman MD [address] [place] [address] [address] [place] [address] Consulting Physician Cardiology 07/12/24
--- OUTSIDE RECORDS SUMMARY | 2024-11-09 18:54 | XMS_ITS | Referral Summary ---
Author Organization [facility] [address] [place] [address] Phone Care Team Providers Care Pathology Laboratory Director Name Role Phone Jayme Beltrán MD Primary Care Provider [phone] Jayme Donis MD PhD Unavailable [phone] Hannah OD Unavailable [phone] Blayne Gutierrez MD PhD Unavailable [phone] Yue Heaton LABORATORY TECHNICAL SPECIALIST Unavailable Ciro Magana LABORATORY TECHNICAL SPECIALIST Unavailable [phone] Arpit Joy MD Unavailable [phone] Charan Walsh MD Unavailable [phone] Allyn Gilman MD Unavailable [phone] Encounters Date Type Department Care Team Description 10/24/2024 Results Follow-Up [facility] [address] [place] [address] Jayme Beltrán MD 10/14/2024 Orders Only [facility] Health Information Management [address] [place] [address] Jayme Beltrán MD 10/05/2024 Telephone [facility] [address] [place] [address] Jayme Beltrán MD 09/26/2024 Telephone [facility] [address] [place] [address] Jayme Beltrán MD 09/22/2024 Telephone [facility] [address] [place] [address] Jayme Beltrán MD Labs Only 09/21/2024 Orders Only [facility] - Interventional Radiology [address] [place] [id number] Lisa Gunderson RN Benign prostatic hyperplasia with urinary frequency (Primary Dx) 09/19/2024 Telephone [facility], Interventional Radiology [address] [place] [address] [phone] Sonia Cruz, SEAN rx 09/18/2024 1:30 PM [employer] Telemedicine [facility] Radiology, Interventional Radiology [address] [place] [address] [address] Arpit Joy MD Enlarged prostate with urinary obstruction (Primary Dx) 09/17/2024 Telephone [facility] [address] [place] [address] Jayme Beltrán MD 09/15/2024 Telephone [facility] [address] [place] [address] Sulma Castaneda RN 08/30/2024 Telephone [facility], Interventional Radiology [address] [place] [address] [phone] Sonia Cruz, ESAN Appointment 08/25/2024 11:15 AM [employer] Office Visit [employer] at [address] [place] [phone] Allyn Gilman MD Palpitations (Primary Dx); Orthostatic hypotension from Last 3 Months Allergies No known active allergies Medications acetaminophen [...] 08/02/2024 Assessment & Plan (08/02/2024 11:34 AM AUTHORS MOTIVATIONAL): Overall, slight decline to cognitive testing. He [...] 07/21/2024 Assessment & Plan (08/01/2024 5:33 AM AUTHORS MOTIVATIONAL): New symptom, started about 10 days ago [...] Wedge compression fracture of unsp thoracic vert eb, init 06/05/2024 Overview (06/21/2024): [facility]. No such history known to patient or his . Orthostatic hypotension 06/02/2024 Overview (06/20/2024): [facility]. Assessment & Plan (08/01/2024 5:26 AM AUTHORS MOTIVATIONAL): New problem as of about two months ago. He continues on midodrine and fludrocortisone to maintain blood pressure. He is wearing a heart monitor to evaluate for possible arrhythmias that may have been responsible for a possible syncopal episode. So far after one week, no serious rhythm problem has been reported. Assessment & Plan (06/25/2024 6:18 AM AUTHORS MOTIVATIONAL): New finding, diagnosed during his recent hospitalization at [facility] for a fall with injuries. [...] low normal range. The admitting physicians at [facility] recommended a follow-up with Cardiology, and I agree so we placed a referral. They also recommended that he wear thigh-high support hose and an abdominal binder to maintain blood pressure. I would say these interventions, especially the latter, are of dubious efficacy, but he can continue to wear them if he feels they are helpful. Fall down stairs 05/30/2024 Overview (06/20/2024): [facility]. Assessment & Plan (06/25/2024 6:15 AM AUTHORS MOTIVATIONAL): Acute problem from about three weeks ago, improving. He was visiting relatives in [place] and needed to use the restroom. He apparently took a wrong turn and fell down steps to the garage. He went to [facility] where he was diagnosed with multiple rib fractures and a small right pneumothorax. Imaging of the head and C-spine did not show any acute injuries. He stayed in the hospital for about six days to make sure he was stable and to address issues with orthostatic hypotension. He was then discharged to rehab in [place] and is now home. He is using [...] six weeks. Pneumothorax, traumatic 05/30/2024 Overview (06/20/2024): [facility]. Assessment & Plan (06/25/2024 6:19 AM AUTHORS MOTIVATIONAL): Acute problem as of his recent hospitalization at [facility]. This was small and managed conservatively. Today, lungs are clear and oxygen saturation on room air is normal. We will monitor clinically. Closed fracture of multiple ribs of right side 1 Overview (06/20/2024): [facility]. Assessment & Plan (06/21/2024 5:19 PM AUTHORS MOTIVATIONAL): Acute problem from about three weeks ago, [...] weeks. Assessment & Plan (07/23/2023 2:15 PM AUTHORS MOTIVATIONAL): His neck pain might be a little [...] was preventing adequate sleep. He went to [place] urgent care. 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 He complains of headache pains from the arthritis. He takes acetaminophen 325 mg q.4 hours PRN and gabapentin 100 mg 3 times daily which help him deal with the pain. Assessment & Plan (08/07/2023 3:16 PM AUTHORS MOTIVATIONAL): Headaches are still somewhat problematic. He takes [...] He denies jaw claudication. He saw his women designer who diagnosed a posterior vitreal detachment in [...] recommended evaluation by an MD or DO unhairing inspector. Follow-up in one week. Memory changes 10/05/2022 [...] has a tracker function. Spoke with social work program coordinator, Daija Rodriguez, on ideas for respite care or other resources available for patient and . Encouraged patient to have hearing test done to evaluate for need of hearing aids. Discussed memantine/Namenda but will hold off as patient stumbles quite a bit and may increase his risk of falls. already holds financial and medical POA. Referral to [facility]. Follow-up in 6 months or sooner if need be. Mixed hyperlipidemia 07/01/2020 Assessment & Plan (08/01/2024 5:32 AM AUTHORS MOTIVATIONAL): Chronic, present for five or more years, [...] diet. Assessment & Plan (07/23/2023 2:14 PM AUTHORS MOTIVATIONAL): We discussed his lipid panel which confers a 21% 10 year cardiovascular risk. We discussed primary prophylaxis with statin, but due to the possible liver side effects, he declines therapy. Assessment & Plan (01/18/2023 2:37 PM CDT): We will check lipids before his next visit to give him feedback on his diet. Assessment & Plan (07/20/2022 11:25 AM AUTHORS MOTIVATIONAL): His cholesterol numbers look very good. At [...] cholesterol. Assessment & Plan (07/14/2021 11:20 AM AUTHORS MOTIVATIONAL): His lipids look pretty reasonable, but his [...] periodically. Assessment & Plan (07/16/2020 3:44 PM AUTHORS MOTIVATIONAL): His current lipids show a mild to [...] abuse. Assessment & Plan (08/01/2024 5:31 AM AUTHORS MOTIVATIONAL): Chronic, present for five or more years, [...] she will call the GI office at [facility]. Assessment & Plan (02/06/2022 8:43 AM CDT): The esophageal varices and portal gastropathy are resolved on his most recent upper endoscopy. We will see him back in six months. Assessment & Plan (01/06/2021 11:00 AM CDT): He is doing well on current therapy. Denies any new symptoms of concern. Monitor clinically. Follow-up with GI as needed. Assessment & Plan (06/30/2019 2:18 PM AUTHORS MOTIVATIONAL): He has esophageal varices from alcoholic cirrhosis. [...] He has a follow-up with GI at [facility] in three days. Assessment & Plan (07/23/2023 2:13 PM AUTHORS MOTIVATIONAL): He continues on famotidine twice a day. [...] Padilla. Assessment & Plan (07/20/2022 11:25 AM AUTHORS MOTIVATIONAL): Despite being on famotidine twice a day, he has fairly frequent epigastric pain and heartburn symptoms. He attributes some to feeling stressed. He denies trouble swallowing. We discussed options for treatment including switching to a PPI, but in the end he decided to stay on the famotidine. He will keep his follow ups with GI at [facility]. Assessment & Plan (07/14/2021 11:18 AM AUTHORS MOTIVATIONAL): He says symptoms are well controlled with famotidine. Continue same. Assessment & Plan (01/06/2021 11:02 AM CDT): He is doing well on famotidine. He denies having reflux symptoms at this time. Assessment & Plan (07/16/2020 3:42 PM AUTHORS MOTIVATIONAL): He continues on famotidine twice a day, and denies any new symptoms of concern. Continue same. Assessment & Plan (01/05/2020 12:13 PM CDT): He is now just on famotidine for acid reflux and to reduce risk of variceal hemorrhage. Assessment & Plan (06/30/2019 2:16 PM AUTHORS MOTIVATIONAL): He continues on H2 blockers and a [...] for any previous cardiac workup done at [facility], but we have nothing on file at [...] different acid suppressive medications recommended by his associate dean, Dr. Davison. The pantoprazole might be one [...] [facility]. Assessment & Plan (07/23/2023 2:16 PM AUTHORS MOTIVATIONAL): Most recent thyroid hormone levels are normal. [...] months. Assessment & Plan (07/20/2022 11:27 AM AUTHORS MOTIVATIONAL): We are monitoring a sometimes mildly elevated TSH. Labs will be checked again before his next visit in six months. Assessment & Plan (07/15/2021 10:43 AM AUTHORS MOTIVATIONAL): A recent TSH was normal. We will monitor periodically. Lab Results Component Value Date TSH 1.810 01/01/2021 Assessment & Plan (01/06/2021 11:00 AM CDT): He had a borderline TSH in the past. We are monitoring with periodic lab values. Lab Results Component Value Date TSH 1.810 01/01/2021 Assessment & Plan (07/08/2020 11:41 AM AUTHORS MOTIVATIONAL): His last TSH was borderline elevated about [...] difficulties. Assessment & Plan (08/01/2024 5:25 AM AUTHORS MOTIVATIONAL): Chronic, diagnosed about five years ago, stable. [...] time. Assessment & Plan (06/25/2024 6:16 AM AUTHORS MOTIVATIONAL): Chronic, present for five or more years, [...] a follow-up with the memory unit at [facility] in a few days so we will see what their assessment shows. In the meantime, continue current therapy. Assessment & Plan (07/23/2023 2:14 PM AUTHORS MOTIVATIONAL): He saw Dr. Donis's nurse practitioner. No [...] follow ups with the neurocognitive specialists at [facility], next visit is in May. Assessment & Plan (07/15/2021 10:45 AM AUTHORS MOTIVATIONAL): He worries about his memory. Sometimes he [...] consider referral to the Memory Clinic at [facility]. Assessment & Plan (01/12/2021 3:13 PM [...] needed. Assessment & Plan (07/08/2020 11:39 AM AUTHORS MOTIVATIONAL): He seems to be doing well. He was fully functional in the office during the visit. Continue to monitor clinically. Assessment & Plan (05/14/2019 2:11 PM CDT): He was worried about his memory, but he scored very well on the mini-mental status exam administered at [facility] () and he seems reassured. We will see him back in four months or sooner as needed. Alcoholic cirrhosis of liver without ascites 08/2017 Overview (07/23/2023): Sees GI at [facility]. Assessment & Plan (07/31/2024 1:49 PM AUTHORS MOTIVATIONAL): Chronic, present for more than five years, currently compensated. He has not had an alcoholic beverage for at least six years. We will monitor with frequent office visits. Assessment & Plan (01/24/2024 2:20 PM CDT): Chronic, controlled but at risk. He has a follow-up with GI at [facility] this . We ordered a follow-up ultrasound as he has not had imaging of the liver for several years. Return here in six months. Assessment & Plan (08/07/2023 3:14 PM AUTHORS MOTIVATIONAL): He will schedule a follow-up with GI at [facility], last visit with them was in October of last year. I recommended they discuss follow-up imaging of the liver. Alpha fetoprotein last year was low. Assessment & Plan (07/20/2022 11:20 AM AUTHORS MOTIVATIONAL): He has not had an alcoholic drink [...] months. Assessment & Plan (07/14/2021 11:18 AM AUTHORS MOTIVATIONAL): Abdominal exam is benign. We continue to [...] alcohol. Assessment & Plan (07/08/2020 11:35 AM AUTHORS MOTIVATIONAL): He is seeing Dr. Minor. A recent [...] months. Assessment & Plan (06/30/2019 2:10 PM AUTHORS MOTIVATIONAL): He is doing well. He is being [...] first. Assessment & Plan (08/01/2024 5:24 AM AUTHORS MOTIVATIONAL): Chronic, diagnosed about 10 years ago, uncontrolled. [...] elsewhere. Assessment & Plan (07/23/2023 2:13 PM AUTHORS MOTIVATIONAL): He urinates frequently. It is not clear [...] same. Assessment & Plan (07/20/2022 11:24 AM AUTHORS MOTIVATIONAL): He denies trouble urinating. He is on tamsulosin. He declined YAN, but says he will get a PSA with his next blood draw. Assessment & Plan (01/16/2022 12:12 PM CDT): He still gets up at night frequently to urinate despite taking Flomax. He denies dysuria or hematuria. We will consider other workup as needed. Assessment & Plan (07/08/2020 11:36 AM AUTHORS MOTIVATIONAL): He gets up at night once or [...] made. Assessment & Plan (06/30/2019 2:15 PM AUTHORS MOTIVATIONAL): He does not think the Flomax is [...] college. Assessment & Plan (08/01/2024 5:30 AM AUTHORS MOTIVATIONAL): Chronic, present for decades, fair control. He is currently taking paroxetine 20 mg daily. He denies depressive symptoms. Continue same. Assessment & Plan (06/25/2024 6:18 AM AUTHORS MOTIVATIONAL): Chronic, present for decades. He might be [...] same. Assessment & Plan (07/23/2023 2:16 PM AUTHORS MOTIVATIONAL): His mood is not the greatest, especially with his recent neck pain problems, but he says he is doing okay on the Paxil. Assessment & Plan (01/18/2023 2:37 PM CDT): He says his mood is good. Continue Paxil 20 mg daily. Assessment & Plan (08/06/2022 8:30 AM AUTHORS MOTIVATIONAL): He gets easily stressed out. He is [...] to follow-up with a specialist at the [facility]. We will submit a referral. Assessment & Plan (02/06/2022 8:42 AM CDT): He used to self medicate with alcohol, but is abstaining. He experiences a fair amount of generalized anxiety. He worries that he worries about silly things. His worrying distracts him from day-to-day activities and interferes with memory. He forgets where he put his wallet. He relies on his t idaniao much. He stopped taking Paxil. It sounds like he only took it as needed. We discussed that Paxil is probably not effective if taken infrequently as needed. He would like to try a daily low-dose which we sent in today. Follow-up early as needed if not improving. Assessment & Plan (07/14/2021 11:20 AM AUTHORS MOTIVATIONAL): He has trouble with anxiety, especially about [...] counseling. Assessment & Plan (07/08/2020 11:42 AM AUTHORS MOTIVATIONAL): He is doing well on paroxetine 10 [...] months. Assessment & Plan (06/30/2019 2:16 PM AUTHORS MOTIVATIONAL): He says the Paxil is really helping [...] (01/10/2022): Added automatically from request for surgery [id number], right lower leg papule excised 07/24/2020, Dr. Caraballo. Atypical cells, referred to [facility]. [place] reports atypical cystic squamous proliferation with chronic inflammation, positive margin. Conservative complete excision recommended which was performed 08/30/2020. Assessment & Plan (10/22/2020 9:59 AM AUTHORS MOTIVATIONAL): Patient can Leave everything open to air. Soap and water and showers is fine. Would hold off on submerging incision for another few weeks. We will see him back 1 further time and a month to reassess. They will call back with any further questions or concerns. Assessment & Plan (10/17/2020 9:48 AM AUTHORS MOTIVATIONAL): All remaining scab has Been removed. The graft has roughly a 95% take. We have placed Adaptic gauze and tape just for the minimal bleeding at where we removed the last piece of scab. We will see him back next Wednesday. After today they can take the dressing off, shower and just leave open to air Assessment & Plan (10/15/2020 10:41 AM AUTHORS MOTIVATIONAL): Remaining scabs have been removed. The last few will continue to loosen up as a showers. He can now leave it open to air and on covered. We will see him back on Assessment & Plan (10/10/2020 9:24 AM AUTHORS MOTIVATIONAL): The graft site continues to fill in nicely. Some more the scab has been removed as they were much looser with the Vaseline dressing. We will see him back again next Wednesday. The will change the dressing over the weekend. Assessment & Plan (10/08/2020 1:41 PM AUTHORS MOTIVATIONAL): Each visit we unroof some the old [...] forming. Assessment & Plan (09/27/2020 10:03 AM AUTHORS MOTIVATIONAL): Continue Adaptic to graft base. Cover with 4 x 4 gauze, Kerlix and Matias wrap. to change on Wednesday. We will see him back on Wednesday. Some of the scab has been removed to facilitate healing. Assessment & Plan (09/26/2020 9:17 AM AUTHORS MOTIVATIONAL): Scabbing of the tissue has been removed at bedside. We will continue the Adaptic to keep the area moistened at least another week. We will see him back this Wednesday. Assessment & Plan (09/17/2020 10:32 AM AUTHORS MOTIVATIONAL): Remaining desmond have been removed. Some of [...] air. Assessment & Plan (09/10/2020 11:26 AM AUTHORS MOTIVATIONAL): I have recovered both the donor and [...] today Assessment & Plan (09/05/2020 1:39 PM AUTHORS MOTIVATIONAL): Both sites continue to heal well. I will leave the desmond in at the skin graft site for another week or so. We will continue Vaseline gauze to the donor site as well as over the graft and held them in place with 4 x 4 gauze, Kerlix and Matias wrap. The will change the dressing next [...] concerns. Assessment & Plan (07/16/2020 3:43 PM AUTHORS MOTIVATIONAL): About 2-3 months ago, he noticed a [...] in shape. He used to see a medical transcriptionist about this abnormal patch of skin, and got some creams, but has had no treatment for it for many years. We will refer him to surgery for excision. It could be a somewhat complicated surgery because of the size of the lesion and associated skin abnormality. A skin graft may be needed. Immunizations Immunization Administration Dates Next Due COVID-19 mRNA (Realm) 0.3 m L (30 mcg) vaccine (12 years and up) 06/05/2023 Hep A / Hep B 05/04/2019,12/03/2018,10/31/2018 Influenza, Quad, Adjuvantate d, Intramuscular 06/05/2023,06/02/2021 Influenza, Quadrivalent, Hig h Dose, Preservative Free, Intrr 05/11/2022,05/03/2020 Influenza, Trivalent, Adjuva nted, Intramuscular 06/08/2019 Influenza, Trivalent, High D ose, Split, Preservative Free, Intramuscular 06/21/2024,05/24/2018,05/15/2017,06/17,06/02/2015,05/28/2015 Influenza, Trivalent, IM (MDV) 4,05/17/2013,06/19/2005,07/28 Influenza, Unspecified 05/28/2015 Novavax COVID-19 5MCG/0.5ML Vaccine 08/19/2024 MegaZebra SARS-CoV-2 Monovalent Vaccination (12+ Yrs) PURPLE 11/02/2020,10/10/2020 MegaZebra Sars-Cov-2 Bivalent V accination (12+ YRS) 04/26/2022 Pneumococcal Conjugate PCV 13 04/18/2019 Pneumococcal Polysaccharide PPV23 01/05/2020,08/2007 RSV Vaccine, Pref, Recombina nt, Subunit, Adjuvanted, PF, IM (Arexvy) 07/31/2023 Tdap 07/31/2023,05/28/2010 ZOSTER LIVE 06/01/2014,05/17/2013 ZOSTER Recombinant 01/02/2019,10/31/2018 Social History Tobacco Use Types Packs/Day Years [...] on file Legal Sex Male 12:36 AM AUTHORS MOTIVATIONAL Gender Identity Not on file Sexual Orientation Not on file Last Filed Vital Signs Vital Sign Reading Time Taken Comments Blood Pressure 131/77 08/25/2024 11:03 AM AUTHORS MOTIVATIONAL Pulse 60 08/25/2024 11:03 AM AUTHORS MOTIVATIONAL Temperature 36.8 C (98.2 F) 08/02/2024 10:57 AM AUTHORS MOTIVATIONAL Respiratory Rate 16 07/31/2024 1:03 PM AUTHORS MOTIVATIONAL Oxygen Saturation 97% 08/02/2024 10:57 AM AUTHORS MOTIVATIONAL Inhaled Oxygen Concentration - - Weight 73.2 kg (161 lb 6.4 oz) 08/25/2024 11:03 AM AUTHORS MOTIVATIONAL Height 160 cm (5' 3 ) 08/25/2024 11:03 AM AUTHORS MOTIVATIONAL Body Mass Index 28.59 08/25/2024 11:03 AM AUTHORS MOTIVATIONAL Plan of Treatment Not on file Procedures Procedure Name Priority Date/Time Associated Diagnosis Comments SCAN - RADIOLOGY/IMAGING 10/14/2024 URINE CULTURE Routine 09/25/2024 12:26 PM AUTHORS MOTIVATIONAL REFLEXIVE URINE CULTURE Routine 09/25/2024 12:26 PM AUTHORS MOTIVATIONAL URINALYSIS AND REFLEX TO MICROSCOPIC AND CULTURE Routine 09/25/2024 12:26 PM AUTHORS MOTIVATIONAL Confusion Memory change COLONOSCOPY Routine 11/11/2020 ABDOMINAL AORTIC ANEURYSM SCREENING Routine 12/29/2019 HEPATITIS C SCREENING Routine 05/04/2018 from Last 3 Months or Most Recently Relevant to Health Maintenance Results * SCAN - RADIOLOGY/IMAGING (10/14/2024) Anatomical Region Laterality Modality Other us Jayme Beltrán MD Final Result * REFLEXIVE URINE CULTURE (09/25/2024 12:26 PM AUTHORS MOTIVATIONAL) Urine culture [facility] Comment:CULTURE INDICATED - RESULTS TO FOLLOW 09/25/2024 12:2 6 PM AUTHORS MOTIVATIONAL 09/25/2024 12:28 PM AUTHORS MOTIVATIONAL Jayme Beltrán MD LAB MICROBIOLOGY - GENERAL OR DERABLES Final Result [facility] [address] [place] [address] * (ABNORMAL) Urinalysis reflex to microscopic and culture Urine, clean voided (09/25/2024 12:26 PM AUTHORS MOTIVATIONAL) Color, ur DARK YELLOW YELLOW [facility] Appearance, ur CLEAR CLEAR [facility] Specific gravity 1.024 1.001 - 1.035 [facility] pH, ur 6.0 5.0 - 8.0 [facility] Glucose, ur NEGATIVE NEGATIVE [facility] Bilirubin, ur NEGATIVE NEGATIVE [facility] Ketones, ur TRACE(A) NEGATIVE [facility] Blood, ur NEGATIVE NEGATIVE [facility] Protein, ur, quant NEGATIVE NEGATIVE [facility] Nitrites, ur NEGATIVE NEGATIVE [facility] Leukocyte esterase, ur TRACE(A) NEGATIVE [facility] WBC, ur NONE SEEN < OR = 5 /HPF [facility] RBC, ur NONE SEEN < OR = 2 /HPF [facility] Epithelial cells, squamous, ur NONE SEEN < OR = 5 /HPF [facility] Bacteria, ur, quant NONE SEEN NONE SEEN /HPF [facility] Hyaline cast NONE SEEN NONE SEEN /LPF [facility] Note [facility] Comment: This urine was analyzed for the presence of WBC, RBC, bacteria, casts, and other formed elements. Only those elements seen were reported. Urine, clean voided 09/25/2024 12:26 PM AUTH[employer] MOTIVATIONAL 09/25/2024 12:28 PM AUTHORS MOTIVATIONAL Jayme Beltrán MD LAB MICROBIOLOGY - GENERAL OR DERABLES Final Result Performing Organization Address [facility]/ZIP Co de Phone Number [facility] [address] [place] [address] * Urine culture (09/25/2024 12:26 PM AUTHORS MOTIVATIONAL) Urine culture [facility] Comment: CULTURE, URINE, ROUTINE Micro Number: [id number] Test Status: Final Specimen Source: Urine Specimen Quality: Adequate Result: No Growth 09/25/2024 12:2 6 PM AUTH[employer] MOTIVATIONAL 09/25/2024 12:28 PM AUTHORS MOTIVATIONAL Jayme Beltrán MD LAB MICROBIOLOGY - GENERAL OR DERABLES Final Result Performing Organization Address [facility] Co de Phone Number [facility] [address] [place] [address] * COLONOSCOPY (11/11/2020) Scribed Colonoscopy Normal Impressions Jayme Beltrán MD - 11/11/2020 Otherwise normal colonoscopy, [facility]. Details can be found in full report. Narrative Jayme Beltrán MD - 11/11/2020 Nonspecific vascular lesions, diverticuli and internal hemorrhoids, Dr. Minor, [facility]. Historical Provider HEALTH MAINTENANCE Final Result * HEPATITIS C SCREENING (05/04/2018) HEP C Normal Comment:Result in [facility] here, [facility]. Historical Provider HEALTH MAINTENANCE Final Result from Last 3 Months or Most Recently Relevant to Health Maintenance Insurance AETNA MEDICARE AETNA MEDICARE AETNA MEDICARE Advance Directives For more information, please contact: [phone] Documents on File Type Date Recorded Patient Him Director Expl anation ADVANCE DIRECTIVE 08/03/2024 9:39 AM JAKE R OF [employer] OPERATOR-MEDICAL * Full Code (Latest Code Status on File) Date Activated Date Inactivated Comments 08/30/2020 12:41 PM 09/03/2020 8:04 PM Care Teams Pathology Laboratory Director Relationship Specialty Start Date End Date Jayme Beltrán MD [address] [place] [address] PCP - General Infectious Diseases 02/27/19 Jayme Donis MD PhD [id number] [place] [address] Referring Physician Neurology 10/05/22 Oz Hannah OD [address] [place] [address] Consulting Physician Optometry 05/14/23 Blayne Gutierrez MD PhD [id number] [place] [address] Consulting Physician Radiology 07/09/23 Yue Heaton NP [address] [facility] SUR[facility], [address] [id number] Nurse Practitioner Neurosurgery 04/28/24 Ciro Magana, [address] [place] [address] Nurse Practitioner Neurology 06/20/24 Arpit Joy MD [id number] [place] [address] Consulting Physician Interventional Radiology and Diag Radiology 07/20/24 [place] [address] [place] [address] Consulting Physician Urology 07/17/24 Allyn Gilman MD 2 [facility] [address] [address] Consulting Physician Cardiology 07/12/24
--- OUTSIDE RECORDS SUMMARY | 2024-11-09 18:54 | XMS_ITS | Encounter Summary ---
Author Organization [facility] Healthcare Address [address] [place] [address] Care Team Providers Care Line Therapist Name Role Phone Jayme Beltrán MD Primary Care Provider Jayme Donis MD PhD Unavailable [phone] Oz Hannah OD Unavailable [phone] Blayne Gutierrez MD PhD Unavailable [phone] Yue Heaton STAFF RESEARCH ASSOCIATE Unavailable Ciro Magana STAFF RESEARCH ASSOCIATE Unavailable [phone] Arpit Joy MD Unavailable [phone] Charan Walsh MD Unavailable [phone] Alyln Gilman MD Unavailable [phone] Encounter Details Date Type Department Care Team (Late st Contact Info) Description 10/24/2024 Results Follow-Up [facility] Medical Group [facility] [address] [place] [address] Jayme Beltrán MD [address] [place] [address] Social History Tobacco Use Types Packs/Day Years Used Date Smoking Tobacco: Former Cigarettes 1 14 0 02/13/1966 - 02/14/1980 Smokeless Tobacco: Never Alcohol Use Standard Drinks/Week Comments Not Currently [...] on file Legal Sex Male 12:36 AM [employer] Gender Identity Not on file Sexual Orientation Not on file documented as of this encounter Plan of Treatment Not on file documented as of this encounter Visit Diagnoses Not on filedocumented in this encounter Care Teams Line Therapist Relationship Specialty Start Date End Date Jayme Beltrán MD [address] [address] PCP - General Infectious Diseases 02/27/19 Jayme Donis MD PhD [address] [facility] [address] [place] [address] Referring Physician Neurology 10/05/22 Oz Hannah OD [address] [place] [address] Consulting Physician Optometry 05/14/23 Blayne Gutierrez MD PhD [address] [facility] [address] [place] [address] Consulting Physician Radiology 07/09/23 Yue Heaton NP [address] [facility] NEUROLOGICAL SURGERY, [address] [address] Nurse Practitioner Neurosurgery 04/28/24 Ciro Magana NP [address] [place] [address] Nurse Practitioner Neurology 06/20/24 Arpit Joy MD [address] [facility] [address] [place] [address] Consulting Physician Interventional Radiology and Diag Radiology 07/20/24 [place] [address] [place] [address] Consulting Physician Urology 07/17/24 Allyn Gilman MD [address] [facility] [address] [place] [address] Consulting Physician Cardiology 07/12/24 documented as of this encounter
[2024-11-09 19:51] LABS: Basophils Percent Auto 0.9 % (0.2-1.2); Eosinophils Absolute Auto 0.1 K/mm3 (0-0.3); Eosinophils Percent Auto 2.8 % (0-4.4); Hematocrit 33.2 % (42.0-52.0); Immature Granulocyte Absolute 0.02 K/mm3 (0.00-0.031); Immature Granulocyte Percent A 0.4 % (0-0.5); Lymphocytes Absolute Auto 0.64 K/mm3 (0.9-3.2); Lymphocytes Percent Auto 13.9 % (18.3-44.2); Mean Corpuscular HGB Conc 33.1 g/dl (32-36); Mean Corpuscular Hemoglobin 32.3 pg (26-34); Mean Corpuscular Volume 97.4 fl (80-100); Mean Platelet Volume 11.1 fl (7.4-10.4); Monocytes Absolute Auto 0.5 K/mm3 (0.1-0.6); Monocytes Percent Auto 10.2 % (2.6-8.5); Neutrophils Absolute Auto 3.3 K/mm3 (1.3-6.7); Neutrophils Percent Auto 71.8 % (45.5-73.1); Platelet Count Result 117 k/mm3 (150-375); Red Blood Count 3.41 M/mm3 (4.6-6.20); White Blood Count 4.6 K/mm3 (4.5-10.0)
[2024-11-09 20:02] LABS: Alanine Aminotransferase 45 U/L (6-50); Albumin Level 3.5 g/dL (3.5-5.1); Alkaline Phosphatase 128 U/L (38-126); Anion Gap 7 mmol/L (4-12); Aspartate Amino Transferase 44 U/L (17-59); Blood Urea Nitrogen 18 mg/dL (9-20); Calcium 8.4 mg/dL (8.4-10.2); Carbon Dioxide 31 mmol/L (22-30); Chloride 101 mmol/L (98-107); Estimated CRCL calculation 68 ml/min; Estimated Glomerular Filt Rate > 60; Glucose 115 mg/dL (65-110); Potassium 3.5 mmol/L (3.4-5.0); Sodium 139 mmol/L (137-145)
[2024-11-09 20:05] LABS: INR 1.1; Prothrombin Time 15.1 Seconds (11.1-14.7)
[2024-11-09 20:06] LABS: Partial Thromboplastin Time 29.4 Seconds (22.3-36.8)
--- NOTE | 2024-11-09 21:21 | PC.NURSE ---
Attempted to call [facility] twice without response.
== END 2024-11-10 ==
PROVIDERS: Emergency Provider Student in an Organized Health Care Education/Training Program; PCP Internal Medicine Infectious Disease
DX: S09.90XA Unspecified injury of head, initial encounter (principal); F03.90 Unspecified dementia, unspecified severity, without behavioral disturbance, psychotic disturbance, mood disturbance, and anxiety; K74.60 Unspecified cirrhosis of liver; M19.90 Unspecified osteoarthritis, unspecified site; Z87.891 Personal history of nicotine dependence; Z79.899 Other long term (current) drug therapy; I45.10 Unspecified right bundle-branch block; M50.31 Other cervical disc degeneration, high cervical region; W07.XXXA Fall from chair, initial encounter
CPT/HCPCS: 36415; 70450; 72125; 73070; 80053; 85025; 85610; 85730; 93005; 99284

== ENCOUNTER 2024-11-21 01:52 | Emergency (ER) | payer MEDICARE, SELFPAY ==
--- NOTE | ~2024-11-21 | XR_ITS ---
Portable chest x-ray Comparison: 04/02/2011 Clinical History: Altered mental status Findings: Questionable minimal left basilar airspace disease. Right lung clear. Cardiomediastinal s ilhouette is stable. Bones and soft tissues are unremarkable. Impression: Questionable minimal left basilar atelectasis or pneumonia. Correlate clinically. Reviewed, dictated and finalized at [facility]. Impression: Questionable minimal left basilar atelectasis or pneumonia. Correlate clinicall y.
--- NOTE | ~2024-11-21 | CT_ITS ---
CT head without contrast Indication: Altered mental status COMPARISON: 11/09/2024 Technique: Serial scans were obtained through the brain without the administration of contrast. Dose reduction technique was used on this scan by utilizing automated exposure control and iterative recon struction technique. The dose-length product (DLP) was 681.00 mGy-cm. Findings: There is no evidence of intracranial hemorrhage, mass lesion, or acute infarct. The ventri cles and subarachnoid spaces are dilated, consistent with mild atrophy. Low attenuation regions are seen within the periventricular white matter bilaterally, likely representing changes from chronic mi crovascular ischemic disease. There is no evidence of edema, mass effect or midline shift. The visu alized paranasal sinuses and mastoid air cells are clear. Impression: No intracranial hemorrhage, mass, or acute infarct. Atrophy and chronic white matter changes, as above. Reviewed, dictated and finalized at [facility]. Impression: No intracranial hemorrhage, mass, or acute infarct. Atrophy and chronic white matter changes, as above.
[2024-11-21 01:53] VITALS: BP 152/90; PULSE 67; RESP 18; TEMP 36.2; O2SAT 97
--- NOTE | 2024-11-21 02:45 | ECG_ITS ---
Test Date: 2024-11-21 03:02:57 Measurements Intervals [place] Rate: 64 P: 54 ID: [id number] QRS: -2 QRSD: 142 T: 8 QT: 419 QTc: 435 Interpretive Statements SINUS RHYTHM WITH SINUS ARRHYTHMIA BORDERLINE AV CONDUCTION DELAY RIGHT BUNDLE BRANCH BLOCK BASELINE ARTIFACT- AVR, AVL, AVF, V4 ABNORMAL ECG Compared to ECG 11/09/2024 18:55:51 NO SIGNIFICANT CHANGE Electronically Signed On 11-21-2024 06:27:35 CDT by Gael Luna D.O.
[2024-11-21 03:06] VITALS: BP 174/85; PULSE 61; RESP 13; O2SAT 99
[2024-11-21 03:14] LABS: Add Urine Microscopic? NO; Appearance Urine Clear (Clear); Basophils Percent Auto 0.6 % (0.2-1.2); Bilirubin Urine Negative (Negative); Blood Urine Negative (Negative); Color Urine Yellow (Yellow); Eosinophils Absolute Auto 0.1 K/mm3 (0-0.3); Eosinophils Percent Auto 2.2 % (0-4.4); Glucose Urine UA Negative (Negative); Hematocrit 38.2 % (42.0-52.0); Hemoglobin 12.4 g/dL (14.0-18.0); Immature Granulocyte Absolute 0.02 K/mm3 (0.00-0.031); Immature Granulocyte Percent A 0.4 % (0-0.5); Immature Platelet Fraction Pct 5.2 % (0.9-11.2); Ketones Urine Negative (Negative); Leukocyte Esterase Ur Negative LEU/UL (Negative); Lymphocytes Absolute Auto 1.01 K/mm3 (0.9-3.2); Lymphocytes Percent Auto 18.9 % (18.3-44.2); Mean Corpuscular HGB Conc 32.5 g/dl (32-36); Mean Corpuscular Volume 98.7 fl (80-100); Mean Platelet Volume 11.2 fl (7.4-10.4); Monocytes Absolute Auto 0.5 K/mm3 (0.1-0.6); Monocytes Percent Auto 9.9 % (2.6-8.5); Neutrophils Absolute Auto 3.6 K/mm3 (1.3-6.7); Nitrate Urine Negative (Negative); Platelet Count Result 116 k/mm3 (150-375); Protein Urine Negative (Negative); Red Blood Count 3.87 M/mm3 (4.6-6.20); Red Cell Distribution Width 13.8 % (11.5-14.5); Specific Grav Ur 1.005 (1.001-1.035); Urobilinogen Urine 0.2 mg/dL (<2.0); White Blood Count 5.3 K/mm3 (4.5-10.0); pH Urine 7.5 (5.0-9.0)
[2024-11-21 03:22] LABS: Alanine Aminotransferase 37 U/L (6-50); Albumin Level 4.2 g/dL (3.5-5.1); Alkaline Phosphatase 148 U/L (38-126); Anion Gap 7 mmol/L (4-12); Aspartate Amino Transferase 38 U/L (17-59); Bilirubin,Total 0.8 mg/dL (0.2-1.3); Blood Urea Nitrogen 16 mg/dL (9-20); Calcium 9.3 mg/dL (8.4-10.2); Carbon Dioxide 33 mmol/L (22-30); Chloride 102 mmol/L (98-107); Estimated Glomerular Filt Rate > 60; Glucose 94 mg/dL (65-110); Potassium 3.8 mmol/L (3.4-5.0); Sodium 142 mmol/L (137-145)
[2024-11-21 03:23] LABS: Acetaminophen < 10 ug/mL (10-30); Ethanol < 10 mg/dL (<10); Salicylate < 1.0 mg/dL (2-20)
[2024-11-21 03:29] LABS: Amphetamine Screen Urine Negative (Negative); Barbiturate Screen Urine Negative (Negative); Benzodiazepines Screen Urine Negative (Negative); Cannabinoid Screen Urine Negative (Negative); Cocaine Screen Urine Negative (Negative); Methadone Screen Urine Negative (Negative); Opiate Screen Urine Negative (Negative); Phencyclidine Screen Urine Negative (Negative)
[2024-11-21 03:38] LABS: Troponin I < 0.012 ng/mL (0.000-0.034)
--- OUTSIDE RECORDS SUMMARY | 2024-11-21 04:08 | XMS_ITS | Encounter Summary ---
Author Organization [facility] Address [address] [place] [address] Care Team Providers Care Lumber Cutter Name Role Phone Jayme Beltrán MD Primary Care Provider Unavail able Reason for Visit * Reason Onset Date Comments Persistent Orthostatic hypotension 06/03/2024 Spoke phil Phillips @ Dr. Kayla wilkes Encounter Details Date Type Department Care Team (Late st Contact Info) Description 06/03/2024 Telephone [facility] Admitting [address] [place] [address] [place] [address] [facility] [address] [place] [address] Persistent Orthostatic hypotension (Spoke phli Phillips @ Dr. Kayla wilkes) Social History [...] on filedocumented in this encounter Care Teams Lumber Cutter Relationship Specialty Start Date End Date Jayme Beltrán MD NO ADDRESS ON FILE PCP - General Internal Medicine 05/28/24 documented as of this encounter
--- OUTSIDE RECORDS SUMMARY | 2024-11-21 04:08 | XMS_ITS | Referral Summary ---
Author Organization [facility] [place] [address] Address [address] [place] [address] Phone Care Team Providers [employer] Social Science Teacher Name Role Phone Jayme Beltrán MD Primary Care Provider [phone] Jayme Donis MD PhD Unavailable [phone] Hannah OD Unavailable [phone] Blayne Gutierrez MD PhD Unavailable [phone] Yue Heaton BOWLING BALL ASSEMBLER Unavailable Ciro Magana BOWLING BALL ASSEMBLER Unavailable [phone] Arpit Joy MD Unavailable Charan Walsh MD Unavailable [phone] Allyn Gilman MD Unavailable [phone] Encounters Date Type Department Care Team Description 10/24/2024 Results Follow-Up [facility] [address] [place] [address] Jayme Beltrán MD 10/14/2024 Orders Only [facility] [address] [place] [address] Jayme Beltrán MD 10/05/2024 Telephone [facility] [address] [place] [address] Jayme Beltrán MD 09/26/2024 Telephone [facility] [address] [place] [address] Jayme Beltrán MD 09/22/2024 Telephone [facility] [address] [place] [address] Jayme Beltrán MD Labs Only 09/21/2024 Orders Only [facility] - Interventional Radiology [address] [place] [id number] Lisa Gunderson RN Benign prostatic hyperplasia with urinary frequency (Primary Dx) 09/19/[address] [facility], Interventional Radiology [address] [place] [address] [phone] Sonia Cruz, SEAN rx 09/18/2024 1:30 PM THERAPEUTIC ACTIVITIES SERVICES WORKER Telemedicine [facility], Interventional Radiology [address] [place] [address] [address] Arpit Joy MD Enlarged prostate with urinary obstruction (Primary Dx) 09/17/2024 Telephone [facility] [address] [place] [address] Jayme Beltrán MD 09/15/2024 Telephone [facility] [address] [place] [address] Sulma Castaneda RN 08/30/[address] [facility], Interventional Radiology [address] [place] [address] [phone] Sonia Cruz, SEAN Appointment 08/25/2024 11:15 AM THERAPEUTIC ACTIVITIES SERVICES WORKER Office Visit [facility] [employer] [facility] at [address] [place] [id number] Allyn Gilman MD Palpitations (Primary Dx); Orthostatic [...] as needed Active gabapentin (NEURONTIN) 100 mg capsuleIndicati ons:Neuropathic Pain Take 1 capsule (100 mg total) by mouth 3 (three) times a day 90 capsule 5 07/22/20 24 Active donepeziL (ARICEPT) 10 mg tabletIndicatio ns:Mild to Moderate Alzheimer's Type Dementia Take 1 tablet (10 mg total) by mouth nightly 07/20/20 24 Active mirtazapine (REMERON) 15 mg tabletIndicatio ns:Persistent mood disorder Take 1 tablet (15 mg total) by mouth nightly 30 tablet 5 09/17/19 25 Active finasteride (PROSCAR) 5 mg tabletIndicatio ns:Benign prostatic hyperplasia with urinary frequency Take 1 tablet (5 mg total) by mouth daily 90 tablet 09/21/19 25 026 Active midodrine (PROAMATINE) 5 mg tabletIndicatio ns:Orthostatic hypotension TAKE 1 TABLET BY MOUTH EVERY 8 HOURS. 270 tablet 1 10/09/19 25 Active multivitamin with folic acid (Daily-Jasvir, with folic acid,) 400 mcg tabletIndicatio ns:Urinary urgency TAKE 1 TABLET BY MOUTH EVERY DAY 90 tablet 1 10/17/19 25 Active famotidine (PEPCID) 20 mg tabletIndicatio ns:Gastroesopha geal reflux disease without esophagitis TAKE 1 TABLET BY MOUTH TWICE A DAY 180 tablet 1 10/18/19 25 Active QUEtiapine (SEROquel) 50 mg tabletIndicatio ns:Persistent mood disorder TAKE 1 TABLET BY MOUTH EVERY DAY AT NIGHT 90 tablet 1 10/18/19 25 Active QUEtiapine (SEROquel) 50 mg tablet Take 1 tablet (50 mg total) by mouth nightly 09/09/19 25 Active fludrocortisone 0.1 mg tabletIndicatio ns:Orthostatic hypotension TAKE 1 TABLET BY MOUTH EVERY DAY 30 tablet 3 10/31/19 25 Active fludrocortisone 0.1 mg tabletIndicatio ns:Orthostatic hypotension Take 1 tablet (0.1 mg total) by mouth daily 30 tablet 3 07/13/20 24 025 Discontinued Active Problems Problem Noted Date Diagnosed Date Alzheimer's disease 08/02/2024 Assessment & Plan (08/02/2024 11:34 AM THERAPEUTIC ACTIVITIES SERVICES WORKER): Overall, slight decline to cognitive testing. He [...] 07/21/2024 Assessment & Plan (08/01/2024 5:33 AM THERAPEUTIC ACTIVITIES SERVICES WORKER): New symptom, started about 10 days ago [...] thoracic vert ebra, init 06/05/2024 Overview (06/21/2024): [facility]. No such history known to patient or his . Orthostatic hypotension 06/02/2024 Overview (06/20/2024): [facility]. Assessment & Plan (08/01/2024 5:26 AM THERAPEUTIC ACTIVITIES SERVICES WORKER): New problem as of about two months ago. He continues on midodrine and fludrocortisone to maintain blood pressure. He is wearing a heart monitor to evaluate for possible arrhythmias that may have been responsible for a possible syncopal episode. So far after one week, no serious rhythm problem has been reported. Assessment & Plan (06/25/2024 6:18 AM THERAPEUTIC ACTIVITIES SERVICES WORKER): New finding, diagnosed during his recent hospitalization at [facility] for a fall with injuries. [...] low normal range. The admitting physicians at [facility] recommended a follow-up with Cardiology, and I agree so we placed a referral. They also recommended that he wear thigh-high support hose and an abdominal binder to maintain blood pressure. I would say these interventions, especially the latter, are of dubious efficacy, but he can continue to wear them if he feels they are helpful. Fall down stairs 05/30/2024 Overview (06/20/2024): [facility]. Assessment & Plan (06/25/2024 6:15 AM THERAPEUTIC ACTIVITIES SERVICES WORKER): Acute problem from about three weeks ago, improving. He was visiting relatives in [place] and needed to use the restroom. He apparently took a wrong turn and fell down steps to the garage. He went to [facility] where he was diagnosed with multiple rib fractures and a small right pneumothorax. Imaging of the head and C-spine did not show any acute injuries. He stayed in the hospital for about six days to make sure he was stable and to address issues with orthostatic hypotension. He was then discharged to rehab in [place] and is now home. He is using [...] six weeks. Pneumothorax, traumatic 05/30/2024 Overview (06/20/2024): [facility]. Assessment & Plan (06/25/2024 6:19 AM THERAPEUTIC ACTIVITIES SERVICES WORKER): Acute problem as of his recent hospitalization at [facility]. This was small and managed conservatively. Today, lungs are clear and oxygen saturation on room air is normal. We will monitor clinically. Closed fracture of multiple ribs of right side 1 Overview (06/20/2024): [facility]. Assessment & Plan (06/21/2024 5:19 PM THERAPEUTIC ACTIVITIES SERVICES WORKER): Acute problem from about three weeks ago, [...] weeks. Assessment & Plan (07/23/2023 2:15 PM THERAPEUTIC ACTIVITIES SERVICES WORKER): His neck pain might be a little [...] was preventing adequate sleep. He went to [place] urgent care. 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 He complains of headache pains from the arthritis. He takes acetaminophen 325 mg q.4 hours PRN and gabapentin 100 mg 3 times daily which help him deal with the pain. Assessment & Plan (08/07/2023 3:16 PM THERAPEUTIC ACTIVITIES SERVICES WORKER): Headaches are still somewhat problematic. He takes [...] He denies jaw claudication. He saw his needleworker who diagnosed a posterior vitreal detachment in [...] recommended evaluation by an MD or DO client relations representative. Follow-up in one week. Memory changes 10/05/2022 [...] has a tracker function. Spoke with social media community manager, Daija Rodriguez, on ideas for respite care or other resources available for patient and . Encouraged patient to have hearing test done to evaluate for need of hearing aids. Discussed memantine/Namenda but will hold off as patient stumbles quite a bit and may increase his risk of falls. already holds financial and medical POA. Referral to [facility]. Follow-up in 6 months or sooner if need be. Mixed hyperlipidemia 07/01/2020 Assessment & Plan (08/01/2024 5:32 AM THERAPEUTIC ACTIVITIES SERVICES WORKER): Chronic, present for five or more years, [...] diet. Assessment & Plan (07/23/2023 2:14 PM THERAPEUTIC ACTIVITIES SERVICES WORKER): We discussed his lipid panel which confers a 21% 10 year cardiovascular risk. We discussed primary prophylaxis with statin, but due to the possible liver side effects, he declines therapy. Assessment & Plan (01/18/2023 2:37 PM CDT): We will check lipids before his next visit to give him feedback on his diet. Assessment & Plan (07/20/2022 11:25 AM THERAPEUTIC ACTIVITIES SERVICES WORKER): His cholesterol numbers look very good. At [...] cholesterol. Assessment & Plan (07/14/2021 11:20 AM THERAPEUTIC ACTIVITIES SERVICES WORKER): His lipids look pretty reasonable, but his [...] periodically. Assessment & Plan (07/16/2020 3:44 PM THERAPEUTIC ACTIVITIES SERVICES WORKER): His current lipids show a mild to [...] abuse. Assessment & Plan (08/01/2024 5:31 AM THERAPEUTIC ACTIVITIES SERVICES WORKER): Chronic, present for five or more years, [...] she will call the GI office at [facility]. Assessment & Plan (02/06/2022 8:43 AM CDT): The esophageal varices and portal gastropathy are resolved on his most recent upper endoscopy. We will see him back in six months. Assessment & Plan (01/06/2021 11:00 AM CDT): He is doing well on current therapy. Denies any new symptoms of concern. Monitor clinically. Follow-up with GI as needed. Assessment & Plan (06/30/2019 2:18 PM THERAPEUTIC ACTIVITIES SERVICES WORKER): He has esophageal varices from alcoholic cirrhosis. [...] He has a follow-up with GI at [facility] in three days. Assessment & Plan (07/23/2023 2:13 PM THERAPEUTIC ACTIVITIES SERVICES WORKER): He continues on famotidine twice a day. [...] Padilla. Assessment & Plan (07/20/2022 11:25 AM THERAPEUTIC ACTIVITIES SERVICES WORKER): Despite being on famotidine twice a day, he has fairly frequent epigastric pain and heartburn symptoms. He attributes some to feeling stressed. He denies trouble swallowing. We discussed options for treatment including switching to a PPI, but in the end he decided to stay on the famotidine. He will keep his follow ups with GI at [facility]. Assessment & Plan (07/14/2021 11:18 AM THERAPEUTIC ACTIVITIES SERVICES WORKER): He says symptoms are well controlled with famotidine. Continue same. Assessment & Plan (01/06/2021 11:02 AM CDT): He is doing well on famotidine. He denies having reflux symptoms at this time. Assessment & Plan (07/16/2020 3:42 PM THERAPEUTIC ACTIVITIES SERVICES WORKER): He continues on famotidine twice a day, and denies any new symptoms of concern. Continue same. Assessment & Plan (01/05/2020 12:13 PM CDT): He is now just on famotidine for acid reflux and to reduce risk of variceal hemorrhage. Assessment & Plan (06/30/2019 2:16 PM THERAPEUTIC ACTIVITIES SERVICES WORKER): He continues on H2 blockers and a [...] for any previous cardiac workup done at [facility], but we have nothing on file at [...] different acid suppressive medications recommended by his ultimate hoops trainer, Dr. Davison. The pantoprazole might be one [...] [facility]. Assessment & Plan (07/23/2023 2:16 PM THERAPEUTIC ACTIVITIES SERVICES WORKER): Most recent thyroid hormone levels are normal. [...] months. Assessment & Plan (07/20/2022 11:27 AM THERAPEUTIC ACTIVITIES SERVICES WORKER): We are monitoring a sometimes mildly elevated TSH. Labs will be checked again before his next visit in six months. Assessment & Plan (07/15/2021 10:43 AM THERAPEUTIC ACTIVITIES SERVICES WORKER): A recent TSH was normal. We will monitor periodically. Lab Results Component Value Date TSH 1.810 01/01/2021 Assessment & Plan (01/06/2021 11:00 AM CDT): He had a borderline TSH in the past. We are monitoring with periodic lab values. Lab Results Component Value Date TSH 1.810 01/01/2021 Assessment & Plan (07/08/2020 11:41 AM THERAPEUTIC ACTIVITIES SERVICES WORKER): His last TSH was borderline elevated about [...] difficulties. Assessment & Plan (08/01/2024 5:25 AM THERAPEUTIC ACTIVITIES SERVICES WORKER): Chronic, diagnosed about five years ago, stable. [...] time. Assessment & Plan (06/25/2024 6:16 AM THERAPEUTIC ACTIVITIES SERVICES WORKER): Chronic, present for five or more years, [...] a follow-up with the memory unit at [facility] in a few days so we will see what their assessment shows. In the meantime, continue current therapy. Assessment & Plan (07/23/2023 2:14 PM THERAPEUTIC ACTIVITIES SERVICES WORKER): He saw Dr. Donis's nurse practitioner. No [...] follow ups with the neurocognitive specialists at [facility], next visit is in May. Assessment & Plan (07/15/2021 10:45 AM THERAPEUTIC ACTIVITIES SERVICES WORKER): He worries about his memory. Sometimes he [...] consider referral to the Memory Clinic at [facility]. Assessment & Plan (01/12/2021 3:13 PM CDT): [...] needed. Assessment & Plan (07/08/2020 11:39 AM THERAPEUTIC ACTIVITIES SERVICES WORKER): He seems to be doing well. He was fully functional in the office during the visit. Continue to monitor clinically. Assessment & Plan (05/14/2019 2:11 PM CDT): He was worried about his memory, but he scored very well on the mini-mental status exam administered at [facility] () and he seems reassured. We will see him back in four months or sooner as needed. Alcoholic cirrhosis of liver without ascites 08/2017 Overview (07/23/2023): Sees GI at [facility]. Assessment & Plan (07/31/2024 1:49 PM THERAPEUTIC ACTIVITIES SERVICES WORKER): Chronic, present for more than five years, currently compensated. He has not had an alcoholic beverage for at least six years. We will monitor with frequent office visits. Assessment & Plan (01/24/2024 2:20 PM CDT): Chronic, controlled but at risk. He has a follow-up with GI at [facility] this . We ordered a follow-up ultrasound as he has not had imaging of the liver for several years. Return here in six months. Assessment & Plan (08/07/2023 3:14 PM THERAPEUTIC ACTIVITIES SERVICES WORKER): He will schedule a follow-up with GI at [facility], last visit with them was in October of last year. I recommended they discuss follow-up imaging of the liver. Alpha fetoprotein last year was low. Assessment & Plan (07/20/2022 11:20 AM THERAPEUTIC ACTIVITIES SERVICES WORKER): He has not had an alcoholic drink [...] months. Assessment & Plan (07/14/2021 11:18 AM THERAPEUTIC ACTIVITIES SERVICES WORKER): Abdominal exam is benign. We continue to [...] alcohol. Assessment & Plan (07/08/2020 11:35 AM THERAPEUTIC ACTIVITIES SERVICES WORKER): He is seeing Dr. Minor. A recent [...] months. Assessment & Plan (06/30/2019 2:10 PM THERAPEUTIC ACTIVITIES SERVICES WORKER): He is doing well. He is being [...] first. Assessment & Plan (08/01/2024 5:24 AM THERAPEUTIC ACTIVITIES SERVICES WORKER): Chronic, diagnosed about 10 years ago, uncontrolled. [...] elsewhere. Assessment & Plan (07/23/2023 2:13 PM THERAPEUTIC ACTIVITIES SERVICES WORKER): He urinates frequently. It is not clear [...] same. Assessment & Plan (07/20/2022 11:24 AM THERAPEUTIC ACTIVITIES SERVICES WORKER): He denies trouble urinating. He is on tamsulosin. He declined YAN, but says he will get a PSA with his next blood draw. Assessment & Plan (01/16/2022 12:12 PM CDT): He still gets up at night frequently to urinate despite taking Flomax. He denies dysuria or hematuria. We will consider other workup as needed. Assessment & Plan (07/08/2020 11:36 AM THERAPEUTIC ACTIVITIES SERVICES WORKER): He gets up at night once or [...] made. Assessment & Plan (06/30/2019 2:15 PM THERAPEUTIC ACTIVITIES SERVICES WORKER): He does not think the Flomax is [...] college. Assessment & Plan (08/01/2024 5:30 AM THERAPEUTIC ACTIVITIES SERVICES WORKER): Chronic, present for decades, fair control. He is currently taking paroxetine 20 mg daily. He denies depressive symptoms. Continue same. Assessment & Plan (06/25/2024 6:18 AM THERAPEUTIC ACTIVITIES SERVICES WORKER): Chronic, present for decades. He might be [...] same. Assessment & Plan (07/23/2023 2:16 PM THERAPEUTIC ACTIVITIES SERVICES WORKER): His mood is not the greatest, especially with his recent neck pain problems, but he says he is doing okay on the Paxil. Assessment & Plan (01/18/2023 2:37 PM CDT): He says his mood is good. Continue Paxil 20 mg daily. Assessment & Plan (08/06/2022 8:30 AM THERAPEUTIC ACTIVITIES SERVICES WORKER): He gets easily stressed out. He is [...] to follow-up with a specialist at the [facility]. We will submit a referral. [...] improving. Assessment & Plan (07/14/2021 11:20 AM THERAPEUTIC ACTIVITIES SERVICES WORKER): He has trouble with anxiety, especially about [...] counseling. Assessment & Plan (07/08/2020 11:42 AM THERAPEUTIC ACTIVITIES SERVICES WORKER): He is doing well on paroxetine 10 [...] months. Assessment & Plan (06/30/2019 2:16 PM THERAPEUTIC ACTIVITIES SERVICES WORKER): He says the Paxil is really helping [...] (01/10/2022): Added automatically from request for surgery [id number], right lower leg papule excised 07/24/2020, Dr. Caraballo. Atypical cells, [facility] reports atypical cystic squamous proliferation with chronic inflammation, positive margin. Conservative complete excision recommended which was performed 08/30/2020. Assessment & Plan (10/22/2020 9:59 AM THERAPEUTIC ACTIVITIES SERVICES WORKER): Patient can Leave everything open to air. Soap and water and showers is fine. Would hold off on submerging incision for another few weeks. We will see him back 1 further time and a month to reassess. They will call back with any further questions or concerns. Assessment & Plan (10/17/2020 9:48 AM THERAPEUTIC ACTIVITIES SERVICES WORKER): All remaining scab has Been removed. The graft has roughly a 95% take. We have placed Adaptic gauze and tape just for the minimal bleeding at where we removed the last piece of scab. We will see him back next Wednesday. After today they can take the dressing off, shower and just leave open to air Assessment & Plan (10/15/2020 10:41 AM THERAPEUTIC ACTIVITIES SERVICES WORKER): Remaining scabs have been removed. The last few will continue to loosen up as a showers. He can now leave it open to air and on covered. We will see him back on Assessment & Plan (10/10/2020 9:24 AM THERAPEUTIC ACTIVITIES SERVICES WORKER): The graft site continues to fill in nicely. Some more the scab has been removed as they were much looser with the Vaseline dressing. We will see him back again next Wednesday. The will change the dressing over the weekend. Assessment & Plan (10/08/2020 1:41 PM THERAPEUTIC ACTIVITIES SERVICES WORKER): Each visit we unroof some the old [...] forming. Assessment & Plan (09/27/2020 10:03 AM THERAPEUTIC ACTIVITIES SERVICES WORKER): Continue Adaptic to graft base. Cover with 4 x 4 gauze, Kerlix and Matias wrap. to change on Wednesday. We will see him back on Wednesday. Some of the scab has been removed to facilitate healing. Assessment & Plan (09/26/2020 9:17 AM THERAPEUTIC ACTIVITIES SERVICES WORKER): Scabbing of the tissue has been removed at bedside. We will continue the Adaptic to keep the area moistened at least another week. We will see him back this Wednesday. Assessment & Plan (09/17/2020 10:32 AM THERAPEUTIC ACTIVITIES SERVICES WORKER): Remaining desmond have been removed. Some of [...] air. Assessment & Plan (09/10/2020 11:26 AM THERAPEUTIC ACTIVITIES SERVICES WORKER): I have recovered both the donor and [...] today Assessment & Plan (09/05/2020 1:39 PM THERAPEUTIC ACTIVITIES SERVICES WORKER): Both sites continue to heal well. I [...] concerns. Assessment & Plan (07/16/2020 3:43 PM THERAPEUTIC ACTIVITIES SERVICES WORKER): About 2-3 months ago, he noticed a [...] in shape. He used to see a insurance counsel about this abnormal patch of skin, and got some creams, but has had no treatment for it for many years. We will refer him to surgery for excision. It could be a somewhat complicated surgery because of the size of the lesion and associated skin abnormality. A skin graft may be needed. Immunizations Immunization Administration Dates Next Due COVID-19 mRNA (Stem) 0.3 m L (30 mcg) vaccine (12 years and up) 06/05/2023 Hep A / Hep B 05/04/2019,12/03/2018,10/31/2018 Influenza, Quad, Adjuvantate d, Intramuscular 06/05/2023,06/02/2021 Influenza, Quadrivalent, Hig h Dose, Preservative Free, Intrr 05/11/2022,05/03/2020 Influenza, Trivalent, Adjuva nted, Intramuscular 06/08/2019 Influenza, Trivalent, High D ose, Split, Preservative Free, Intramuscular 06/21/2024,05/24/2018,05/15/2017,06/17,06/02/2015,05/28/2015 Influenza, Trivalent, IM (MDV) 4,05/17/2013,06/19/2005,07/28 Influenza, Unspecified 05/28/2015 Novavax COVID-19 5MCG/0.5ML Vaccine 08/19/2024 Pfizer SARS-CoV-2 Monovalent Vaccination (12+ Yrs) PURPLE 11/02/2020,10/10/2020 Pfizer Sars-Cov-2 Bivalent V accination (12+ YRS) 04/26/2022 [...] on file Legal Sex Male 12:36 AM THERAPEUTIC ACTIVITIES SERVICES WORKER Gender Identity Not on file Sexual Orientation Not on file Last Filed Vital Signs Vital Sign Reading Time Taken Comments Blood Pressure 131/77 08/25/2024 11:03 AM THERAPEUTIC ACTIVITIES SERVICES WORKER Pulse 60 08/25/2024 11:03 AM THERAPEUTIC ACTIVITIES SERVICES WORKER Temperature 36.8 C (98.2 F) 08/02/2024 10:57 AM THERAPEUTIC ACTIVITIES SERVICES WORKER Respiratory Rate 16 07/31/2024 1:03 PM THERAPEUTIC ACTIVITIES SERVICES WORKER Oxygen Saturation 97% 08/02/2024 10:57 AM THERAPEUTIC ACTIVITIES SERVICES WORKER Inhaled Oxygen Concentration - - Weight 73.2 kg (161 lb 6.4 oz) 08/25/2024 11:03 AM THERAPEUTIC ACTIVITIES SERVICES WORKER Height 160 cm (5' 3 ) 08/25/2024 11:03 AM THERAPEUTIC ACTIVITIES SERVICES WORKER Body Mass Index 28.59 08/25/2024 11:03 AM THERAPEUTIC ACTIVITIES SERVICES WORKER Plan of Treatment Not on file Procedures Procedure Name Priority Date/Time Associated Diagnosis Comments SCAN - RADIOLOGY/IMAGING 10/14/2024 URINE CULTURE Routine 09/25/2024 12:26 PM THERAPEUTIC ACTIVITIES SERVICES WORKER REFLEXIVE URINE CULTURE Routine 09/25/2024 12:26 PM THERAPEUTIC ACTIVITIES SERVICES WORKER URINALYSIS AND REFLEX TO MICROSCOPIC AND CULTURE Routine 09/25/2024 12:26 PM THERAPEUTIC ACTIVITIES SERVICES WORKER Confusion Memory change COLONOSCOPY Routine 11/11/2020 ABDOMINAL AORTIC ANEURYSM SCREENING Routine 12/29/2019 HEPATITIS C SCREENING Routine 05/04/2018 from Last 3 Months or Most Recently Relevant to Health Maintenance Results * SCAN - RADIOLOGY/IMAGING (10/14/2024) Anatomical Region Laterality Modality Other Jayme Beltrán MD Final Result * REFLEXIVE URINE CULTURE (09/25/2024 12:26 PM THERAPEUTIC ACTIVITIES SERVICES WORKER) Urine culture [facility] Comment:CULTURE INDICATED - RESULTS TO FOLLOW 09/25/2024 12:2 6 PM THERAPEUTIC ACTIVITIES SERVICES WORKER 09/25/2024 12:28 PM THERAPEUTIC ACTIVITIES SERVICES WORKER us Jayme Beltrán MD LAB MICROBIOLOGY - GENERAL OR DERABLES Final Result [facility] [address] [place] [address] * (ABNORMAL) Urinalysis reflex to microscopic and culture Urine, clean voided (09/25/2024 12:26 PM THERAPEUTIC ACTIVITIES SERVICES WORKER) Color, ur DARK YELLOW YELLOW [facility] Appearance, ur CLEAR CLEAR [facility] Specific gravity 1.024 1.001 - 1.035 [facility] pH, ur 6.0 5.0 - 8.0 [facility] Glucose, ur NEGATIVE NEGATIVE [facility] Bilirubin, ur NEGATIVE NEGATIVE [facility] Ketones, ur TRACE(A) NEGATIVE [facility] Blood, ur NEGATIVE NEGATIVE [facility] Protein, ur, quant NEGATIVE NEGATIVE [facility] Nitrites, ur NEGATIVE NEGATIVE [facility] Leukocyte esterase, ur TRACE(A) NEGATIVE [facility] WBC, ur NONE SEEN < OR = 5 /HPF [facility] RBC, ur NONE SEEN < OR = 2 /HPF [facility] Epithelial cells, squamous, ur NONE SEEN < OR = 5 /HPF [facility] Bacteria, ur, quant NONE SEEN NONE SEEN /HPF [facility] Hyaline cast NONE SEEN NONE SEEN /LPF [facility] Note [facility] Comment: This urine was analyzed for the presence of WBC, RBC, bacteria, casts, and other formed elements. Only those elements seen were reported. Urine, clean voided 09/25/2024 12:26 PM THERAPEUTIC ACTIVITIES SERVICES WORKER 09/25/2024 12:28 PM THERAPEUTIC ACTIVITIES SERVICES WORKER Jayme Beltrán MD LAB MICROBIOLOGY - GENERAL OR DERABLES Final Result [facility] [address] [place] [address] * Urine culture (09/25/2024 12:26 PM THERAPEUTIC ACTIVITIES SERVICES WORKER) Urine culture [facility] Comment: CULTURE, URINE, ROUTINE Micro Number: [id number] Test Status: Final Specimen Source: Urine Specimen Quality: Adequate Result: No Growth 09/25/2024 12:2 6 PM THERAPE[employer]IC ACTIVITIES SERVICES WORKER 09/25/2024 12:28 PM THERAPEUTIC ACTIVITIES SERVICES WORKER Jayme Beltrán MD LAB MICROBIOLOGY - GENERAL OR DERABLES Final Result [facility] [address] [place] [address] * COLONOSCOPY (11/11/2020) Scribed Colonoscopy Normal Impressions [...] Relevant to Health Maintenance Insurance [employer] MEDICARE [facility] MEDICARE [employer] MEDICARE Advance Directives For more information, please contact: [phone] Documents on File Type Date Recorded Patient Hand Spray Operator Expl anation ADVANCE DIRECTIVE 08/03/2024 9:39 AM JAKE R OF RETAIL SALES LEAD[employer]ICAL * Full Code (Latest Code Status on File) Date Activated Date Inactivated Comments 08/30/2020 12:41 PM 09/03/2020 8:04 PM Care Teams [employer] Teacher Relationship Specialty Start Date End Date Jayme Beltrán MD [address] [place] [address] PCP - General Infectious Diseases 02/27/19 Jayme Donis MD PhD [address] [place] [address] Referring Physician Neurology 10/05/22 Oz Hannah OD [address] [place], [place] [id number] Consulting Physician Optometry 05/14/23 Blayne Gutierrez MD PhD [address] [facility] [address] [place] [address] Consulting Physician Radiology 07/09/23 Yue Heaton, DALIA [address] [facility] [address] [place] [address] Nurse Practitioner Neurosurgery 04/28/24 Ciro Magana NP [address] [place] [address] Nurse Practitioner Neurology 06/20/24 Arpit Joy MD [address] [facility] [address] [place] [address] Consulting Physician Interventional Radiology and Diag Radiology 07/20/24 [place] [address] [place] [address] Consulting Physician Urology 07/17/24 Allyn Gilman MD [address] [place] [address] [address] [place] [id number] Consulting Physician Cardiology 07/12/24
--- OUTSIDE RECORDS SUMMARY | 2024-11-21 04:08 | XMS_ITS | Clinical Summary ---
Author Organization [facility] Address [address] [place] [address] Care Team Providers Care Horticultural Technical Officer Name Role Phone None, Physician Primary Care Provider Unavailabl e Source Comments [facility],non-owned Affiliates and Associated Physician Practices is amultiple site organization consisting of ambulatory clinics and hospital sitesin [place], [place], [place] and [place]. This disclosure is being madepursuant to the Care Everywhere program and may not contain all information available regarding this patient. Last updated 18.[facility] Allergies No known active allergies Encounters Date Type Department Care Team Description 10/14/2024 4:29 PM [facility] - 10/14/2024 11:48 PM [facility] Emergency [facility] EMERGENCY DEPARTMENT [address] [place] [id number] Jaziel Mccullough MD Fall, initial encounter (Primary [...] Comments Blood Pressure 146/78 10/14/2024 10:30 PM [facility] Pulse 51 10/14/2024 10:30 PM [facility] Temperature 36.3 C (97.3 F) 10/14/2024 4:29 PM [facility] Respiratory Rate 16 10/14/2024 10:30 PM [facility] Oxygen Saturation 95% 10/14/2024 10:30 PM [facility] Inhaled Oxygen Concentration - - Weight - - Height 172.7 cm (5' 8 ) 10/14/2024 4:29 PM [facility] Body Mass Index - - Plan of [...] SPINE WO CONTRAST STAT 10/14/2024 6:57 PM [facility] Fall, initial encounter Closed fracture of left side of maxilla, initial encounter Closed fracture of multiple ribs of right side, initial encounter CT THORACIC SPINE WO CONTRAST STAT 10/14/2024 6:57 PM [facility] Fall, initial encounter Closed fracture of left side of maxilla, initial encounter Closed fracture of multiple ribs of right side, initial encounter CT CHEST ABDOMEN PELVIS W CONT STAT 10/14/2024 6:57 PM [facility] Fall, initial encounter Closed fracture of left side of maxilla, initial encounter Closed fracture of multiple ribs of right side, initial encounter CT CERVICAL SPINE WO CONTRAST STAT 10/14/2024 6:57 PM [facility] Fall, initial encounter Closed fracture of left side of maxilla, initial encounter Closed fracture of multiple ribs of right side, initial encounter CT FACIAL BONES WO CONTRAST STAT 10/14/2024 6:57 PM [facility] Fall, initial encounter Closed fracture of left side of maxilla, initial encounter Closed fracture of multiple ribs of right side, initial encounter CT HEAD WO CONTRAST STAT 10/14/2024 6 :57 PM [facility] Fall, initial encounter Closed fracture of left side of maxilla, initial encounter Closed fracture of multiple ribs of right side, initial encounter TROPONIN-I HIGH SENSITIVE REFLEX 1HOUR Timed 10/14/2024 6:56 PM [facility] URINALYSIS REFLEX MICROSCOPIC REFLEX CULTURE STAT 10/14/2024 6:22 PM [facility] EKG 12-LEAD STAT 10/14/2024 6:13 PM [facility] Fall, initial encounter Closed fracture of left side of maxilla, initial encounter Closed fracture of multiple ribs of right side, initial encounter SOB (shortness of breath) Chest pain, unspecified type TYPE + SCREEN PANEL STAT 10/14/2024 5 :22 PM [facility] TROPONIN-I HIGH SENSITIVE BASELINE + 1HR STAT 10/14/2024 5:22 PM [facility] BASIC METABOLIC PANEL (CALCIUM TOTAL) STAT 10/14/2024 5:22 PM [facility] CBC W AUTO DIFFERENTIAL STAT 10/14/2024 5:22 PM [facility] CK BLOOD STAT 10/14/2024 5:22 PM [facility] ALCOHOL ETHYL BLOOD STAT 10/14/2024 5 :22 PM [facility] from Last 3 Months Results * CT CHEST ABDOMEN PELVIS W CONT - Abdomen-pelvis trauma, blunt or penetrating (10/14/2024 6:57 PM [facility]) Anatomical Region Laterality Modality Chest, Abdomen, Pelvis Computed Tomography 10/14/2024 7:01 PM [facility] Impressions 10/15/2024 7:57 AM [facility] Impression: 1.No acute injury in the chest, abdomen or pelvis. 2.Nodular liver surface, which may be seen with cirrhosis. Report drafted by Joe Gomez (resident) I, Danielito Scott MD have personally reviewed and interpreted this examination/study. > Interpreting Provider: Danielito Scott MD on 10/15/2024 7:57 AM Narrative 10/15/2024 7:57 AM [facility] Procedure Information DATE: 10/14/2024 6:58 PM EXAMINATION: [...] T/L-spine trauma, Spine fracture (10/14/2024 6:57 PM [facility]) Anatomical Region Laterality Modality Spine Computed Tomogra phy 10/14/2024 6:49 PM [facility] Impressions 10/14/2024 7:58 PM [facility] IMPRESSION: 1.No acute intracranial hemorrhage, midline shift, [...] above. Report dictated by Joaquina Patterson MD (resident care coordinator). I, Kodak Patel MD have personally reviewed and interpreted this examination/study. > Interpreting Provider: Kodak Patel MD on 10/14/2024 7:58 PM Narrative 10/14/2024 7:58 PM [facility] PROCEDURE: CT HEAD WO CONTRAST, CT FACIAL BONES WO CONTRAST, CT CERVICAL SPINE WO CONTRAST, CT THORACIC SPINE WO CONTRAST, CT LUMBAR SPINE WO CONTRAST, DATE/TIME OF EXAM: 10/14/2024 6:21 PM, LOCATION [facility] INDICATION: Trauma EXAMINATION: 1. CT OF THE [...] DATE/TIME OF EXAM: 10/14/2024 6:21 PM, LOCATION [facility] INDICATION: Trauma EXAMINATION: 1. CT OF THE [...] above. Report dictated by Joaquina Patterson MD (resident care coordinator). I, Kodak Patel MD have personally reviewed and interpreted this examination/study. > Interpreting Provider: Kodak Patel MD on 10/14/2024 7:58 PM Jaziel Mccullough MD CT ORDERABLES * CT THORACIC SPINE WO CONTRAST - T/L-spine trauma, spine fracture (10/14/2024 6:57 PM [facility]) Anatomical Region Laterality Modality Spine Computed Tomogra phy 10/14/2024 6:49 PM [facility] Impressions 10/14/2024 7:58 PM [facility] IMPRESSION: 1.No acute intracranial hemorrhage, midline shift, [...] above. Report dictated by Joaquina Patterson MD (resident care coordinator). IKodak MD have personally reviewed and interpreted this examination/study. > Interpreting Provider: Kodak Patel MD on 10/14/2024 7:58 PM Narrative 10/14/2024 7:58 PM [facility] PROCEDURE: CT HEAD WO CONTRAST, CT FACIAL BONES WO CONTRAST, CT CERVICAL SPINE WO CONTRAST, CT THORACIC SPINE WO CONTRAST, CT LUMBAR SPINE WO CONTRAST, DATE/TIME OF EXAM: 10/14/2024 6:21 PM, LOCATION [facility] INDICATION: Trauma EXAMINATION: 1. CT OF THE [...] DATE/TIME OF EXAM: 10/14/2024 6:21 PM, LOCATION [facility] INDICATION: Trauma EXAMINATION: 1. CT OF THE [...] above. Report dictated by Joaquina Patterson MD (resident care coordinator). I, Kodak Patel MD have personally reviewed and interpreted this examination/study. > Interpreting Provider: Kodak Patel MD on 10/14/2024 7:58 PM Jaziel Mccullough MD CT ORDERABLES * CT CERVICAL SPINE WO CONTRAST - C-Spine Trauma, Spine fracture (10/14/2024 6:57 PM [facility]) Anatomical Region Laterality Modality Spine Computed Tomogra phy 10/14/2024 6:49 PM [facility] Impressions 10/14/2024 7:58 PM [facility] IMPRESSION: 1.No acute intracranial hemorrhage, midline shift, [...] above. Report dictated by Joaquina Patterson MD (resident care coordinator). I, Kodak Patel MD have personally reviewed and interpreted this examination/study. > Interpreting Provider: Kodak Patel MD on 10/14/2024 7:58 PM Narrative 10/14/2024 7:58 PM [facility] PROCEDURE: CT HEAD WO CONTRAST, CT FACIAL BONES WO CONTRAST, CT CERVICAL SPINE WO CONTRAST, CT THORACIC SPINE WO CONTRAST, CT LUMBAR SPINE WO CONTRAST, DATE/TIME OF EXAM: 10/14/2024 6:21 PM, LOCATION [facility] INDICATION: Trauma EXAMINATION: 1. CT OF THE [...] DATE/TIME OF EXAM: 10/14/2024 6:21 PM, LOCATION [facility] INDICATION: Trauma EXAMINATION: 1. CT OF THE [...] above. Report dictated by Joaquina Patterson MD (resident care coordinator). Kodak Valencia MD have personally reviewed and interpreted this examination/study. > Interpreting Provider: Kodak Patel MD on 10/14/2024 7:58 PM Jaziel Mccullough MD CT ORDERABLES * CT FACIAL BONES WO CONTRAST - Facial trauma, fx suspected, blunt (10/14/2024 6:57 PM [facility]ODUCT) Anatomical Region Laterality Modality Head Computed Tomogra phy 10/14/2024 6:49 PM [facility] Impressions 10/14/2024 7:58 PM [facility] IMPRESSION: 1.No acute intracranial hemorrhage, midline shift, [...] above. Report dictated by Joaquina Patterson MD (resident care coordinator). Kodak Valencia MD have personally reviewed and interpreted this examination/study. > Interpreting Provider: Kodak Patel MD on 10/14/2024 7:58 PM Narrative 10/14/2024 7:58 PM [facility] PROCEDURE: CT HEAD WO CONTRAST, CT FACIAL BONES WO CONTRAST, CT CERVICAL SPINE WO CONTRAST, CT THORACIC SPINE WO CONTRAST, CT LUMBAR SPINE WO CONTRAST, DATE/TIME OF EXAM: 10/14/2024 6:21 PM, LOCATION [facility] INDICATION: Trauma EXAMINATION: 1. CT OF THE [...] DATE/TIME OF EXAM: 10/14/2024 6:21 PM, LOCATION [facility] INDICATION: Trauma EXAMINATION: 1. CT OF THE [...] above. Report dictated by Joaquina Patterson MD (resident care coordinator). Kodak Valencia MD have personally reviewed and interpreted this examination/study. > Interpreting Provider: Kodak Patel MD on 10/14/2024 7:58 PM Jaziel Mccullough MD CT ORDERABLES * CT HEAD WO CONTRAST - Head Trauma, CSF leak, mental status changes (10/14/2024 6:57 PM [facility]) Anatomical Region Laterality Modality Head Computed Tomogra phy 10/14/2024 6:49 PM [facility] Impressions 10/14/2024 7:58 PM [facility] IMPRESSION: 1.No acute intracranial hemorrhage, midline shift, [...] above. Report dictated by Joaquina Patterson MD (resident care coordinator). Kodak Valencia MD have personally reviewed and interpreted this examination/study. > Interpreting Provider: Kodak Patel MD on 10/14/2024 7:58 PM Narrative 10/14/2024 7:58 PM [facility] PROCEDURE: CT HEAD WO CONTRAST, CT FACIAL BONES WO CONTRAST, CT CERVICAL SPINE WO CONTRAST, CT THORACIC SPINE WO CONTRAST, CT LUMBAR SPINE WO CONTRAST, DATE/TIME OF EXAM: 10/14/2024 6:21 PM, LOCATION [facility] INDICATION: Trauma EXAMINATION: 1. CT OF THE [...] DATE/TIME OF EXAM: 10/14/2024 6:21 PM, LOCATION [facility] INDICATION: Trauma EXAMINATION: 1. CT OF THE [...] above. Report dictated by Joaquina Patterson MD (resident care coordinator). I, Kodak Patel MD have personally reviewed and interpreted this examination/study. > Interpreting Provider: Kdoak Patel MD on 10/14/2024 7:58 PM Jaziel Mccullough MD CT ORDERABLES * TROPONIN-I HIGH SENSITIVE REFLEX 1HOUR (10/14/2024 6:56 PM [facility]) Troponin I High Sensitive 8 <=35 ng/L 10/14/2024 7:32 PM [facility] Delta Troponin I HS 10/14/2024 7:32 PM [facility] Comment:Delta value intentio misti not calculated. Baseline to 1 hour specimen collection interval exceeded. Blood BLOOD SPECIMEN / Unknown Venipuncture / Unknown 10/14/2024 6:56 PM [facility] 10/14/2024 7:01 PM [facility] Jaziel Mccullough MD LAB - CHEMISTRY ALPHONSE DICKSON [facility] Organization Address City/State/[facility] Co de Phone Number [address] [address], [facility] [phone] * (ABNORMAL) URINALYSIS REFLEX MICROSCOPIC REFLEX CULTURE (10/14/2024 6:22 PM [facility]) Color UA Yellow Yellow, Straw 10/14/2024 7:01 PM [facility] Clarity UA Clear Clear 10/14/2024 7:01 PM [facility] Glucose UA Normal Normal 10/14/2024 7:01 PM [facility] Bilirubin UA Negative Negative 10/14/2024 7:01 PM [facility] Ketone UA Trace(A) Negative 10/14/2024 7:01 PM [facility] Specific [place] UA 1.022 1.005 - 1.030 10/14/2024 7:01 PM [facility] Blood UA 1+(A) Negative 10/14/2024 7:01 PM [facility] pH UA 6.5 5.0 - 9.0 pH 10/14/2024 7:01 PM [facility] Protein UA Negative Negative 10/14/2024 7:01 PM [facility] Urobilinogen UA 6.0(A) Normal mg/dL 025 7:01 PM [facility] Nitrite UA Negative Negative 10/14/2024 7:01 PM [facility] Leukocyte UA Negative Negative 10/14/2024 7:01 PM [facility] RBC UA 21-50(A) 0 - 5 # /hpf 10/14/2024 7:01 PM [facility] WBC UA 0-5 0 - 5 # /hpf 10/14/2024 7:01 PM [facility] Bacteria UA None Seen None Seen 10/14/2024 7:01 PM [facility] Squamous Epithelial Cells 0-2 0 - 5 /hpf 10/14/2024 7:01 PM [facility] Mucus UA 1+ /LPF 10/14/2024 7:01 PM [facility] Urine URINE SPECIMEN OBTAINED BY CLEAN CATCH PROCEDURE / Unknown Collection / Unknown 10/14/2024 6:22 PM [facility] 10/14/2024 6:25 PM [facility] Narrative [facility] - 10/14/2024 7:01 PM [facility] Jaziel Mccullough MD LAB - URINALYSIS ORD ERABLES [facility] [address] [place] [phone], [facility] [phone] * EKG 12-LEAD (10/14/2024 6:13 PM [facility]) Ventricular Rate 62 BPM [facility] MUSE Atrial Rate 62 BPM [facility] MUSE P-R Interval 176 ms [facility] MUSE QRS Duration ms 136 ms [facility] MUSE Q-T Interval ms 448 ms [facility] MUSE QTC Calculation (Bezet) 454 ms [facility] MUSE Calculated P [place] 46 degrees [facility] MUSE Calculated R [place] 3 degrees [facility] MUSE Calculated T [place] 4 degrees [facility] MUSE Interpretation EKG SINUS RHYTHM WITH MARKED SINUS ARRYTHMIA RIGHT BUNDLE BRANCH BLOCK ABNORMAL ECG NO PREVIOUS ECGS AVAILABLE Confirmed by MD KIKE, DAWNA ([id number]) on 10/16/2024 8:55:26 AM [facility] MUSE 10/14/2024 6:13 PM [facility] 10/16/2024 8:55 AM [facility] Jaziel Mccullough MD ECG ORDERABLES Performing Organization Address City/[facility]/ZIP Co de Phone Number [facility] * TROPONIN-I HIGH SENSITIVE BASELINE + 1HR (10/14/2024 5:22 PM [facility]) Troponin I High Sensitive 7 <=35 ng/L 10/14/2024 6:10 PM [facility] Blood BLOOD SPECIMEN / Unknown Venipuncture / Unknown 10/14/2024 5:22 PM [facility] 10/14/2024 5:32 PM [facility] Jaziel Mccullough MD LAB - CHEMISTRY ORDE RABCHECO Performing Organization Address [facility] Co de Phone Number [facility] [address] [place] [phone], [place] [phone] * TYPE + SCREEN PANEL (10/14/2024 5:22 PM [facility]) Antibody Screen NEG 6:12 PM [facility] BLOOD BANK LAB ABO Rh B POS 10/14/2024 6:12 PM [facility] BLOOD BANK LAB Blood Bank BLOOD SPECIMEN / Unknown Venipuncture / Unknown 10/14/2024 5:22 PM [facility] 10/14/2024 5:32 PM [facility] Jaziel Mccullough MD LAB - BLOOD BANK ORD ERABLES Performing Organization Address City/[facility]/ZIP Co de Phone Number [facility] BLOOD BANK LAB [address] [place] [address] [phone] * (ABNORMAL) CBC W AUTO DIFFERENTIAL (10/14/2024 5:22 PM [facility]) [facility] WBC 5.2 4.0 - 10.7 x10E9/L 10/14/2024 5:50 PM [facility] RBC Count 3.93(L) 4.30 - 5.80 x10E12/L 10/14/2024 5:50 PM [facility] Hemoglobin 12.6(L) 13.3 - 17.5 g/dL 10/14/2024 5:50 PM [facility] Hematocrit 36.1(L) 38.7 - 51.1 % 10/14/2024 5:50 PM [facility] MCV 91.9 80.0 - 98.0 fL 10/14/2024 5:50 PM [facility] MCH 32.1 26.7 - 33.6 pg 10/14/2024 5:50 PM [facility] MCHC 34.9 31.7 - 36.3 g/dL 10/14/2024 5:50 PM [facility] RDW-CV 13.6 11.3 - 14.8 % 10/14/2024 5:50 PM [facility] Platelet Count 107(L) 150 - 420 x10E9/L 10/14/2024 5:50 PM [facility] MPV 11.3 7.8 - 11.4 fL 10/14/2024 5:50 PM [facility] Neutrophil % 64.7 41.0 - 74.0 % 10/14/2024 5:50 PM [facility] Lymphocyte % 22.7 17.0 - 47.0 % 10/14/2024 5:50 PM [facility] Monocyte % 8.7 3.0 - 11.0 % 10/14/2024 5:50 PM [facility] Eosinophil % 2.7 0.0 - 7.0 % 10/14/2024 5:50 PM [facility] Basophil % 0.8 0.0 - 1.6 % 10/14/2024 5:50 PM [facility] Immature Granulocytes % 0.4 0.0 - 1.0 % 10/14/2024 5:50 PM [facility] Neutrophil Absolute 3.37 1.60 - 7.50 x10E9/L 10/14/2024 5:50 PM [facility] Lymphocyte Absolute 1.18 1.00 - 4.40 x10E9/L 10/14/2024 5:50 PM [facility] Monocyte Absolute 0.45 0.15 - 1.00 x10E9/L 10/14/2024 5:50 PM [facility] Eosinophil Absolute 0.14 0.00 - 0.60 x10E9/L 10/14/2024 5:50 PM [facility] Basophil Absolute 0.04 0.00 - 0.13 x10E9/L 10/14/2024 5:50 PM [facility] Blood BLOOD SPECIMEN / Unknown Venipuncture / Unknown 10/14/2024 5:22 PM [facility] 10/14/2024 5:32 PM [facility] Jaziel Mccullough MD LAB - HEMATOLOGY ORD ERABLES [facility] [address] [place] [address], [facility] [phone] * (ABNORMAL) BASIC METABOLIC PANEL (CALCIUM TOTAL) (10/14/2024 5:22 PM [facility]) BUN 17 7 - 26 mg/dL 10/14/2024 6:07 PM [facility] Creatinine 0.65(L) 0.71 - 1.16 mg/dL 10/14/2024 6:07 PM [facility] Sodium 143 136 - 145 mmol/L 10/14/2024 6:07 PM [facility] Potassium 3.1(L) 3.5 - 4.5 mmol/L 10/14/2024 6:07 PM [facility] Chloride 110(H) 98 - 107 mmol/L 10/14/2024 6:07 PM [facility] CO2 23 22 - 29 mmol/L 10/14/2024 6:07 PM [facility] Glucose 79 70 - 99 mg/dL 10/14/2024 6:07 PM [facility] Calcium 7.5(L) 8.4 - 10.2 mg/dL 10/14/2024 6:07 PM [facility] Anion Gap 10 6 - 16 10/14/2024 6:07 PM [facility] BUN/Creatinine Ratio 26(H) 7 - 23 10/14/2024 6:07 PM [facility] Osmolality Calculated 296(H) 275 - 295 mOsm/kg 10/14/2024 6:07 PM [facility] eGFR by CKD-EPI >90 >=90 mL/min/1.7 3 m2 10/14/2024 6:07 PM [facility] Blood BLOOD SPECIMEN / Unknown Venipuncture / Unknown 10/14/2024 5:22 PM [facility] 10/14/2024 5:32 PM [facility] Jaziel Mccullough MD LAB - CHEMISTRY ALPHONSE DICKSON Performing Organization Address City/[facility]/ZIP Co de Phone Number [address] [address], [facility] [phone] * (ABNORMAL) CK BLOOD (10/14/2024 5:22 PM [facility]) CK Total 994(H) 30 - 200 U/L 10/14/2024 6:07 PM [facility] Blood BLOOD SPECIMEN / Unknown Venipuncture / Unknown 10/14/2024 5:22 PM [facility] 10/14/2024 5:32 PM [facility] Jaziel Mccullough MD LAB - CHEMISTRY ALPHONSE DICKSON [address] [address], [place] [phone] * ALCOHOL ETHYL BLOOD (10/14/2024 5:22 PM [facility]) Ethanol (mg/dL) <10 <10 mg/dL 6:07 PM [facility] Ethanol Calculated (g/dL) <0.010 <=0.010 g/dL 10/14/2024 6:07 PM [facility] Blood BLOOD SPECIMEN / Unknown Venipuncture / Unknown 10/14/2024 5:22 PM [facility] 10/14/2024 5:32 PM [facility] Narrative [facility] - 10/14/2024 6:07 PM [facility] Ethanol Interp <10: None Detected. Depression of PREFITTER: >100 mg/dl Potentially Critical: >250 mg/dl Potentially [...] Mccullough MD LAB - CHEMISTRY ALPHONSE DICKSON [facility] Organization Address City/State/ZIP Co de Phone Number [facility] [address] [place] [address], [facility] [phone] from Last 3 Months Advance Directives Documents on File Type Date Recorded Patient Shoe Planner Expl anation Adv Directive/Living Will/POA 10/14/2024 Power of Piano Accompanist Care Teams Horticultural Technical Officer Relationship Specialty Start Date End Date None, Physician PCP - General 10/14/24
--- OUTSIDE RECORDS SUMMARY | 2024-11-21 04:08 | XMS_ITS | Encounter Summary ---
Author Organization [facility] Healthcare Address [address] [place] [address] Care Team Providers Care Attendant Coin Operated Laundry Name Role Phone Jayme Beltrán MD Primary Care Provider [phone] Jayme Donis MD PhD Unavailable [phone] Oz Hannah OD Unavailable [phone] Blayne Gutierrez MD PhD Unavailable [phone] Yue Heaton PHLEBOTOMY SERVICES TECHNICIAN Unavailable [phone] Ciro Magana PHLEBOTOMY SERVICES TECHNICIAN Unavailable [phone] Arpit Joy MD Unavailable [phone] Charan Walsh MD Unavailable [phone] Allyn Gilman MD Unavailable [phone] Encounter Details Date Type Department Care Team (Late st Contact Info) Description 10/24/2024 Results Follow-Up [facility] Medical Group [facility] [address] [place] [address] Jayme Beltrán MD [address] [place] [address] Social History Tobacco Use Types Packs/Day Years [...] on file Legal Sex Male 12:36 AM [employer]UI[employer] Gender Identity Not on file Sexual Orientation Not on file documented as of this encounter Plan of Treatment Not on file documented as of this encounter Visit Diagnoses Not on filedocumented in this encounter Care Teams Attendant Coin Operated Laundry Relationship Specialty Start Date End Date Jayme Beltrán MD [address] [address] PCP - General Infectious Diseases 02/27/19 Jayme Donis MD PhD [address] [facility] [address] [place] [address] Referring Physician Neurology 10/05/22 Oz Hannah OD [address] [place] [address] Consulting Physician Optometry 05/14/23 Blayne Gutierrez MD PhD [address] [facility] [place] [address] Consulting Physician Radiology 07/09/23 Yue Heaton NP [address] [facility] NEUROLOGICAL SURGERY, [address] [address] Nurse Practitioner Neurosurgery 04/28/24 Ciro Magana NP [address] [place] [address] Nurse Practitioner Neurology 06/20/24 Arpit Joy MD [address] [facility] [address] [place] [address] Consulting Physician Interventional Radiology and Diag Radiology 07/20/24 [place] [address] [place] [address] Consulting Physician Urology 07/17/24 Allyn Gilman MD [address] [facility] [address] [place] [address] Consulting Physician Cardiology 07/12/24 documented as of this encounter
--- OUTSIDE RECORDS SUMMARY | 2024-11-21 04:08 | XMS_ITS | Clinical Summary ---
Author Organization [facility] Address [address] [place] [address] Phone Care Team Providers Care Painter Apprentice Name Role Phone Jayme Beltrán MD Primary [...] 0 01/05/2020, 04/18/2019, 08/16/2007 Insurance [employer] PPO [facility] Advance Directives For more information, please contact: [phone] * Full Code (Latest Code Status on File) Date Activated Date Inactivated Comments 05/30/2024 10:16 AM 06/05/2024 2:41 PM * Default Full Code - Needs Discussion Date Activated Date Inactivated Comments 05/27/2024 4:36 PM 05/30/2024 10:16 AM Care Teams Painter Apprentice Relationship Specialty Start Date End Date Jayme Beltrán MD NO ADDRESS ON FILE PCP - General Internal Medicine 05/28/24
--- OUTSIDE RECORDS SUMMARY | 2024-11-21 04:08 | XMS_ITS | Clinical Summary ---
Author Organization [facility] Address [address], [facility] [address] [place] [address] Phone Care Team Providers Care Vineyard Tender Name Role Phone Jayme Beltrán MD Primary Care Provider [phone] Cody Padilla MD Unavailable [phone] Sulma Petty APRN, CABLE FORMER Unavailable Allergies No known active allergies Medications [...] Department Care Team Description 08/24/2024 11:30 AM ATOMIC WELDER Office Visit [facility] - [place] [address] [place] [address] Sulma Petty APRN, CABLE FORMER Alcoholic cirrhosis of liver without ascites (HCC) (Primary Dx); Mild cognitive impairment with memory loss; Gastroesophageal reflux disease without esophagitis; Constipation, unspecified constipation type Discharge Disposition: Discharged to home or Selfcare 08/23/2024 Travel from Last 3 Months Family History [...] Comments Blood Pressure 120/80 08/24/2024 11:45 AM ATOMIC WELDER Pulse 55 08/24/2024 11:45 AM ATOMIC WELDER Temperature 36.7 C (98 F) 08/24/2024 11:45 AM ATOMIC WELDER Respiratory Rate 16 08/24/2024 11:45 AM ATOMIC WELDER Oxygen Saturation 97% 08/24/2024 11:45 AM ATOMIC WELDER Inhaled Oxygen Concentration - - Weight 72.2 kg (159 lb 1.6 oz) 08/24/2024 11:45 AM ATOMIC WELDER Height 160 cm (5' 3 ) 08/24/2024 11:45 AM ATOMIC WELDER Body Mass Index 28.18 08/24/2024 11:45 AM ATOMIC WELDER Plan of Treatment Upcoming Encounters Date Type Department Care Team (Late st Contact Info) Description 01/16/2025 9:00 AM CDT Appointment [facility] [address] [place] [address] Sulma Petty APRN, CABLE FORMER [address] [place] [address] Discharge Disposition: Discharged to home or Selfcare 02/23/2025 11:30 AM CDT Office Visit [facility] [address] [place] [address] Sulma Petty APRN, CABLE FORMER [address] [place] [address] Health Maintenance Due Date Last Done Comments [...] 09/03/2021, 10/15, 05/10/2018 Colorectal Cancer Screening Discontinued Respiratory Syncytial Virus (RSV) Immunization (Adult) Completed 07/31/2023 Influenza Immunization Completed , 06/05/2023, 05/11/2022, Additional history exists DTaP/Tdap/Td Immunization Discontinued 2024, 07/31/2023, 05/28/2010 TdaP Immunization Completed 10/14/2024, , 05/28/2010 Cologuard Discontinued Immunochemical Fecal Occult Blood Discontinued Meningococcal Immunization (ACWY) Aged Out No longer eligible based on patient's age to complete this topic Rotavirus Immunization Aged Out No lo nger eligible based on patient's age to complete this topic Procedures Procedure Name Priority Date/Time Associated Diagnosis Comments COLONOSCOPY 09/03/2021 12:00 AM ATOMIC WELDER HEPATITIS PANEL ACUTE (AHP) Routine 05/04/2018 6:42 AM CDT Hepatic cirrhosis, unspecified hepatic cirrhosis type, unspecified whether ascites present (HCC) from Last 3 Months or Most Recently Relevant to Health Maintenance Results * HM COLONOSCOPY (09/03/2021 12:00 AM ATOMIC WELDER) 09/03/2021 us Not On File Provider PROCEDURE/MINOR SURGICAL OR DERABLES Final Result SCAN * HEPATITIS PANEL ACUTE (AHP) (05/04/2018 6:42 AM CDT) HEPATITIS A IGM ANTIBODY NON DETECTED NON DETECTED 05/05/2018 3:24 AM CDT [facility] Comment: IGM Antibodies to HAV not detected. Does not exclude early acute or recovered HAV infection. HEP B CORE AB (IGM) NON DETECTED NON DETECTED 05/05/2018 3:24 AM CDT [facility] Comment: IGM anti-HBC not detected. Does not exclude the possibility of exposure to or infection with HBV. HEPATITIS B SURFACE ANTIGEN NON DETECTED NON DETECTED 05/05/2018 3:24 AM CDT [facility] Comment: A nonreactive test result does [...] 0.08 <1 S/CO 05/05/2018 3:24 AM CDT [facility] Comment: Signal/Cutoff ratio < 0.79 is Nondetected Signal/Cutoff ratio 0.80-0.99 is Grayzone Signal/Cutoff ratio > 0.99 is Detected Supplemental assays are recommended if signal/cutoff ratio is >/=1.00. Signal/cutoff ratio result >/= 5.00 is 97% predictive of positivity for recombinant immunoblot assay (RIBA) and will be reported to the [place] Department of Public [facility] as required. Blood specimen (specimen) Venipuncture / Unknown 05/04/2018 6:42 AM CDT 05/04/2018 9:21 AM CDT us Александр Davison MD HEMATOLOGY ORDERABLES F inal Result [facility] [address] [place] [address], [place] from Last 3 Months or Most Recently Relevant to Health Maintenance Insurance MEDICARE C [employer] Care Teams Vineyard Tender Relationship Specialty Start Date End Date Jayme Beltrán MD [employer], [address] [place] [address] PCP - General Infectious Disease 06/23/19 Cody Padilla MD [address] [place] [address] Consulting Physician Gastroenterology 11/12/22 Sulma Petty APRN, CABLE FORMER [address] [place] [address] Nurse Practitioner Advanced Practice Nurse 08/24/24
--- OUTSIDE RECORDS SUMMARY | 2024-11-21 04:08 | XMS_ITS | Clinical Summary ---
Author Organization [facility] [address] [place] [address] Phone Care Team Providers Care Dress Draper Name Role Phone Jayme Beltrán MD Primary Care Provider [phone] Jayme Donis MD PhD Unavailable [phone] Oz Hannah OD Unavailable [phone] Blayne Gutierrez MD PhD Unavailable [phone] Yue Heaton FRAMING MILL OPERATOR Unavailable Ciro Magana FRAMING MILL OPERATOR Unavailable [phone] Arpit Joy MD Unavailable [phone] Charan Walsh MD Unavailable [phone] Allyn Gilman MD Unavailable [phone] Allergies No known active allergies Medications acetaminophen [...] 08/02/2024 Assessment & Plan (08/02/2024 11:34 AM TENSION MACHINE OPERATOR): Overall, slight decline to cognitive testing. He [...] 07/21/2024 Assessment & Plan (08/01/2024 5:33 AM TENSION MACHINE OPERATOR): New symptom, started about 10 days ago [...] thoracic vert ebra, init 06/05/2024 Overview (06/21/2024): [facility]. No such history known to patient or his . Orthostatic hypotension 06/02/2024 Overview (06/20/2024): [facility]. Assessment & Plan (08/01/2024 5:26 AM TENSION MACHINE OPERATOR): New problem as of about two months ago. He continues on midodrine and fludrocortisone to maintain blood pressure. He is wearing a heart monitor to evaluate for possible arrhythmias that may have been responsible for a possible syncopal episode. So far after one week, no serious rhythm problem has been reported. Assessment & Plan (06/25/2024 6:18 AM TENSION MACHINE OPERATOR): New finding, diagnosed during his recent hospitalization at [facility] for a fall with injuries. [...] low normal range. The admitting physicians at [facility] recommended a follow-up with Cardiology, and I agree so we placed a referral. They also recommended that he wear thigh-high support hose and an abdominal binder to maintain blood pressure. I would say these interventions, especially the latter, are of dubious efficacy, but he can continue to wear them if he feels they are helpful. Fall down stairs 05/30/2024 Overview (06/20/2024): [facility]. Assessment & Plan (06/25/2024 6:15 AM TENSION MACHINE OPERATOR): Acute problem from about three weeks ago, improving. He was visiting relatives in [place] and needed to use the restroom. He apparently took a wrong turn and fell down steps to the garage. He went to [facility] where he was diagnosed with multiple rib fractures and a small right pneumothorax. Imaging of the head and C-spine did not show any acute injuries. He stayed in the hospital for about six days to make sure he was stable and to address issues with orthostatic hypotension. He was then discharged to rehab in [place] and is now home. He is using [...] six weeks. Pneumothorax, traumatic 05/30/2024 Overview (06/20/2024): [facility]. Assessment & Plan (06/25/2024 6:19 AM TENSION MACHINE OPERATOR): Acute problem as of his recent hospitalization at [facility]. This was small and managed conservatively. Today, lungs are clear and oxygen saturation on room air is normal. We will monitor clinically. Closed fracture of multiple ribs of right side 1 Overview (06/20/2024): [facility]. Assessment & Plan (06/21/2024 5:19 PM TENSION MACHINE OPERATOR): Acute problem from about three weeks ago, [...] weeks. Assessment & Plan (07/23/2023 2:15 PM TENSION MACHINE OPERATOR): His neck pain might be a little [...] was preventing adequate sleep. He went to [place] urgent care. 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 He complains of headache pains from the arthritis. He takes acetaminophen 325 mg q.4 hours PRN and gabapentin 100 mg 3 times daily which help him deal with the pain. Assessment & Plan (08/07/2023 3:16 PM TENSION MACHINE OPERATOR): Headaches are still somewhat problematic. He takes [...] He denies jaw claudication. He saw his denial resolution specialist who diagnosed a posterior vitreal detachment in [...] recommended evaluation by an MD or DO broadcast operations engineer. Follow-up in one week. Memory changes 10/05/2022 [...] a tracker function. Spoke with social work job titles, Daija Rodriguez, on ideas for respite care or other resources available for patient and . Encouraged patient to have hearing test done to evaluate for need of hearing aids. Discussed memantine/Namenda but will hold off as patient stumbles quite a bit and may increase his risk of falls. already holds financial and medical POA. Referral to [facility]. Follow-up in 6 months or sooner if need be. Mixed hyperlipidemia 07/01/2020 Assessment & Plan (08/01/2024 5:32 AM TENSION MACHINE OPERATOR): Chronic, present for five or more years, [...] diet. Assessment & Plan (07/23/2023 2:14 PM TENSION MACHINE OPERATOR): We discussed his lipid panel which confers a 21% 10 year cardiovascular risk. We discussed primary prophylaxis with statin, but due to the possible liver side effects, he declines therapy. Assessment & Plan (01/18/2023 2:37 PM CDT): We will check lipids before his next visit to give him feedback on his diet. Assessment & Plan (07/20/2022 11:25 AM TENSION MACHINE OPERATOR): His cholesterol numbers look very good. At [...] cholesterol. Assessment & Plan (07/14/2021 11:20 AM TENSION MACHINE OPERATOR): His lipids look pretty reasonable, but his [...] periodically. Assessment & Plan (07/16/2020 3:44 PM TENSION MACHINE OPERATOR): His current lipids show a mild to [...] abuse. Assessment & Plan (08/01/2024 5:31 AM TENSION MACHINE OPERATOR): Chronic, present for five or more years, [...] she will call the GI office at [facility]. Assessment & Plan (02/06/2022 8:43 AM CDT): The esophageal varices and portal gastropathy are resolved on his most recent upper endoscopy. We will see him back in six months. Assessment & Plan (01/06/2021 11:00 AM CDT): He is doing well on current therapy. Denies any new symptoms of concern. Monitor clinically. Follow-up with GI as needed. Assessment & Plan (06/30/2019 2:18 PM TENSION MACHINE OPERATOR): He has esophageal varices from alcoholic cirrhosis. [...] He has a follow-up with GI at [facility] in three days. Assessment & Plan (07/23/2023 2:13 PM TENSION MACHINE OPERATOR): He continues on famotidine twice a day. [...] Padilla. Assessment & Plan (07/20/2022 11:25 AM TENSION MACHINE OPERATOR): Despite being on famotidine twice a day, he has fairly frequent epigastric pain and heartburn symptoms. He attributes some to feeling stressed. He denies trouble swallowing. We discussed options for treatment including switching to a PPI, but in the end he decided to stay on the famotidine. He will keep his follow ups with GI at [facility]. Assessment & Plan (07/14/2021 11:18 AM TENSION MACHINE OPERATOR): He says symptoms are well controlled with famotidine. Continue same. Assessment & Plan (01/06/2021 11:02 AM CDT): He is doing well on famotidine. He denies having reflux symptoms at this time. Assessment & Plan (07/16/2020 3:42 PM TENSION MACHINE OPERATOR): He continues on famotidine twice a day, and denies any new symptoms of concern. Continue same. Assessment & Plan (01/05/2020 12:13 PM CDT): He is now just on famotidine for acid reflux and to reduce risk of variceal hemorrhage. Assessment & Plan (06/30/2019 2:16 PM TENSION MACHINE OPERATOR): He continues on H2 blockers and a [...] for any previous cardiac workup done at [facility], but we have nothing on file [...] different acid suppressive medications recommended by his agronomy instructor, Dr. Davison. The pantoprazole might be one [...] [facility]. Assessment & Plan (07/23/2023 2:16 PM TENSION MACHINE OPERATOR): Most recent thyroid hormone levels are normal. [...] months. Assessment & Plan (07/20/2022 11:27 AM TENSION MACHINE OPERATOR): We are monitoring a sometimes mildly elevated TSH. Labs will be checked again before his next visit in six months. Assessment & Plan (07/15/2021 10:43 AM TENSION MACHINE OPERATOR): A recent TSH was normal. We will monitor periodically. Lab Results Component Value Date TSH 1.810 01/01/2021 Assessment & Plan (01/06/2021 11:00 AM CDT): He had a borderline TSH in the past. We are monitoring with periodic lab values. Lab Results Component Value Date TSH 1.810 01/01/2021 Assessment & Plan (07/08/2020 11:41 AM TENSION MACHINE OPERATOR): His last TSH was borderline elevated about [...] difficulties. Assessment & Plan (08/01/2024 5:25 AM TENSION MACHINE OPERATOR): Chronic, diagnosed about five years ago, stable. [...] time. Assessment & Plan (06/25/2024 6:16 AM TENSION MACHINE OPERATOR): Chronic, present for five or more years, [...] a follow-up with the memory unit at [facility] in a few days so we will see what their assessment shows. In the meantime, continue current therapy. Assessment & Plan (07/23/2023 2:14 PM TENSION MACHINE OPERATOR): He saw Dr. Donis's nurse practitioner. No [...] follow ups with the neurocognitive specialists at [facility], next visit is in May. Assessment & Plan (07/15/2021 10:45 AM TENSION MACHINE OPERATOR): He worries about his memory. Sometimes he [...] consider referral to the Memory Clinic at [facility]. Assessment & Plan (01/12/2021 3:13 [...] needed. Assessment & Plan (07/08/2020 11:39 AM TENSION MACHINE OPERATOR): He seems to be doing well. He was fully functional in the office during the visit. Continue to monitor clinically. Assessment & Plan (05/14/2019 2:11 PM CDT): He was worried about his memory, but he scored very well on the mini-mental status exam administered at [facility] () and he seems reassured. We will see him back in four months or sooner as needed. Alcoholic cirrhosis of liver without ascites 08/2017 Overview (07/23/2023): Sees GI at [facility]. Assessment & Plan (07/31/2024 1:49 PM TENSION MACHINE OPERATOR): Chronic, present for more than five years, currently compensated. He has not had an alcoholic beverage for at least six years. We will monitor with frequent office visits. Assessment & Plan (01/24/2024 2:20 PM CDT): Chronic, controlled but at risk. He has a follow-up with GI at [facility] this . We ordered a follow-up ultrasound as he has not had imaging of the liver for several years. Return here in six months. Assessment & Plan (08/07/2023 3:14 PM TENSION MACHINE OPERATOR): He will schedule a follow-up with GI at [facility], last visit with them was in October of last year. I recommended they discuss follow-up imaging of the liver. Alpha fetoprotein last year was low. Assessment & Plan (07/20/2022 11:20 AM TENSION MACHINE OPERATOR): He has not had an alcoholic drink [...] months. Assessment & Plan (07/14/2021 11:18 AM TENSION MACHINE OPERATOR): Abdominal exam is benign. We continue to [...] alcohol. Assessment & Plan (07/08/2020 11:35 AM TENSION MACHINE OPERATOR): He is seeing Dr. Minor. A recent [...] months. Assessment & Plan (06/30/2019 2:10 PM TENSION MACHINE OPERATOR): He is doing well. He is being [...] first. Assessment & Plan (08/01/2024 5:24 AM TENSION MACHINE OPERATOR): Chronic, diagnosed about 10 years ago, uncontrolled. [...] elsewhere. Assessment & Plan (07/23/2023 2:13 PM TENSION MACHINE OPERATOR): He urinates frequently. It is not clear [...] same. Assessment & Plan (07/20/2022 11:24 AM TENSION MACHINE OPERATOR): He denies trouble urinating. He is on tamsulosin. He declined YAN, but says he will get a PSA with his next blood draw. Assessment & Plan (01/16/2022 12:12 PM CDT): He still gets up at night frequently to urinate despite taking Flomax. He denies dysuria or hematuria. We will consider other workup as needed. Assessment & Plan (07/08/2020 11:36 AM TENSION MACHINE OPERATOR): He gets up at night once or [...] made. Assessment & Plan (06/30/2019 2:15 PM TENSION MACHINE OPERATOR): He does not think the Flomax is [...] college. Assessment & Plan (08/01/2024 5:30 AM TENSION MACHINE OPERATOR): Chronic, present for decades, fair control. He is currently taking paroxetine 20 mg daily. He denies depressive symptoms. Continue same. Assessment & Plan (06/25/2024 6:18 AM TENSION MACHINE OPERATOR): Chronic, present for decades. He might be [...] same. Assessment & Plan (07/23/2023 2:16 PM TENSION MACHINE OPERATOR): His mood is not the greatest, especially with his recent neck pain problems, but he says he is doing okay on the Paxil. Assessment & Plan (01/18/2023 2:37 PM CDT): He says his mood is good. Continue Paxil 20 mg daily. Assessment & Plan (08/06/2022 8:30 AM TENSION MACHINE OPERATOR): He gets easily stressed out. He is [...] to follow-up with a specialist at the [facility]. We will submit [...] improving. Assessment & Plan (07/14/2021 11:20 AM TENSION MACHINE OPERATOR): He has trouble with anxiety, especially about [...] counseling. Assessment & Plan (07/08/2020 11:42 AM TENSION MACHINE OPERATOR): He is doing well on paroxetine 10 [...] months. Assessment & Plan (06/30/2019 2:16 PM TENSION MACHINE OPERATOR): He says the Paxil is really helping [...] (01/10/2022): Added automatically from request for surgery [id number], right lower leg papule excised 07/24/2020, Dr. Caraballo. Atypical cells, referred to [facility]. [place] reports atypical cystic squamous proliferation with chronic inflammation, positive margin. Conservative complete excision recommended which was performed 08/30/2020. Assessment & Plan (10/22/2020 9:59 AM TENSION MACHINE OPERATOR): Patient can Leave everything open to air. Soap and water and showers is fine. Would hold off on submerging incision for another few weeks. We will see him back 1 further time and a month to reassess. They will call back with any further questions or concerns. Assessment & Plan (10/17/2020 9:48 AM TENSION MACHINE OPERATOR): All remaining scab has Been removed. The graft has roughly a 95% take. We have placed Adaptic gauze and tape just for the minimal bleeding at where we removed the last piece of scab. We will see him back next Wednesday. After today they can take the dressing off, shower and just leave open to air Assessment & Plan (10/15/2020 10:41 AM TENSION MACHINE OPERATOR): Remaining scabs have been removed. The last few will continue to loosen up as a showers. He can now leave it open to air and on covered. We will see him back on Assessment & Plan (10/10/2020 9:24 AM TENSION MACHINE OPERATOR): The graft site continues to fill in nicely. Some more the scab has been removed as they were much looser with the Vaseline dressing. We will see him back again next Wednesday. The will change the dressing over the weekend. Assessment & Plan (10/08/2020 1:41 PM TENSION MACHINE OPERATOR): Each visit we unroof some the old [...] forming. Assessment & Plan (09/27/2020 10:03 AM TENSION MACHINE OPERATOR): Continue Adaptic to graft base. Cover with 4 x 4 gauze, Kerlix and Matias wrap. to change on Wednesday. We will see him back on Wednesday. Some of the scab has been removed to facilitate healing. Assessment & Plan (09/26/2020 9:17 AM TENSION MACHINE OPERATOR): Scabbing of the tissue has been removed at bedside. We will continue the Adaptic to keep the area moistened at least another week. We will see him back this Wednesday. Assessment & Plan (09/17/2020 10:32 AM TENSION MACHINE OPERATOR): Remaining desmond have been removed. Some of [...] air. Assessment & Plan (09/10/2020 11:26 AM TENSION MACHINE OPERATOR): I have recovered both the donor and [...] today Assessment & Plan (09/05/2020 1:39 PM TENSION MACHINE OPERATOR): Both sites continue to heal well. I [...] concerns. Assessment & Plan (07/16/2020 3:43 PM TENSION MACHINE OPERATOR): About 2-3 months ago, he noticed a [...] in shape. He used to see a supervisor fabrication department about this abnormal patch of skin, and got some creams, but has had no treatment for it for many years. We will refer him to surgery for excision. It could be a somewhat complicated surgery because of the size of the lesion and associated skin abnormality. A skin graft may be needed. Encounters Date Type Department Care Team Description 10/24/2024 Results [facility] [address] [place] [phone] Jayme Beltrán MD 10/14/2024 Orders Only [facility] Health Information Management [address] [place] [address] Jayme Beltrán MD 10/05/2024 Telephone [facility] [address] [place] [address] Jayme Beltrán MD 09/26/2024 Telephone [facility] [address] [place] [address] Jayme Beltrán MD 09/22/2024 Telephone [facility] [address] [place] [address] Jayme Beltrán MD Labs Only 09/21/[address] [facility] - Interventional Radiology [address] [place] [phone] Lisa Gunderson RN Benign prostatic hyperplasia with urinary frequency (Primary Dx) 09/19/2024 Telephone [facility] Radiology, Interventional Radiology [address] [facility] [address] [address] Sonia Cruz, SEAN rx 09/18/2024 1:30 PM TENSION MACHINE OPERATOR Telemedicine [facility] Radiology, Interventional Radiology [address] [facility] [address] [address] Arpit Joy MD Enlarged prostate with urinary obstruction (Primary Dx) 09/17/2024 Telephone [facility] [address] [place] [address] Jayme Beltrán MD 09/15/2024 Telephone [facility] [address] [place] [address] Sulma Castaneda RN 08/30/2024 Telephone [facility] Radiology, Interventional Radiology [address] [place] [address] [phone] Sonia Cruz, RN Appointment 08/25/2024 11:15 AM TENSION MACHINE OPERATOR Office Visit [place] [facility] at [address] [place] [phone] Allyn Gilman MD Palpitations (Primary Dx); Orthostatic hypotension from Last 3 Months Immunizations Immunization Administration Dates Next Due COVID-19 mRNA (PFIZER) 0.3 m L (30 mcg) vaccine (12 [...] 01/02/2019,10/31/2018 Surgical History Surgery Date Site/Laterality Comments COLONOSCOPY 05/10/2018 Poor prep, recctal varices, diverticuli, [...] [facility]. COLONOSCOPY 07/02/2011 Diverticuli, hemorrhoids, Dr. Minor, [facility]. ANKLE SURGERY 08/16/2005 - 08/15/[address] Victorino Groves, [facility],. Hardware used, ligament transplant, details lacking. LEG SKIN LESION BIOPSY / EXCISION 07/24/2020 Right Large right lower leg papule, atypical cells, referred to [facility], Dr. Reed. [place] reports atypical cystic squamous proliferation with chronic inflammation, positive margin. Conservative complete excision recommended. ESOPHAGOGASTRODUODENOSCOPY 07/30/2020 Mild pre-pyloric gastritis, portal gastropathy, flat varices, Dr. Minor, [facility]. SKIN LESION EXCISION 08/30/2020 Right Wide excision, skin lesion of right lower leg, followed by skin graft from right thigh. [facility] COLONOSCOPY 11/11/2020 Nonspecific vascular lesions, diverticuli and [...] Added automatica lly from request for surgery [id number], right lower leg papule excised 07/24/2020, Dr. Caraballo. Atypical cells, referred to [facility]. [place] reports atypical cystic squamous proliferation with chronic inflammation, positive margin. Conservative complete excision recommended which was performed 08/30/2020. 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 Family History Medical History Relation Name Comments Multiple myeloma Father Details omar camacho. Cancer Mother Details lacking . Heart disease Mother Details lackin g. Relation Name Status Comments Father Mother Social [...] on file Legal Sex Male 12:36 AM TENSION MACHINE OPERATOR Gender Identity Not on file Sexual Orientation Not on file Obstetrics History Last Filed Vital Signs Vital Sign Reading Time Taken Comments Blood Pressure 131/77 08/25/2024 11:03 AM TENSION MACHINE OPERATOR Pulse 60 08/25/2024 11:03 AM TENSION MACHINE OPERATOR Temperature 36.8 C (98.2 F) 08/02/2024 10:57 AM TENSION MACHINE OPERATOR Respiratory Rate 16 07/31/2024 1:03 PM TENSION MACHINE OPERATOR Oxygen Saturation 97% 08/02/2024 10:57 AM TENSION MACHINE OPERATOR Inhaled Oxygen Concentration - - Weight 73.2 kg (161 lb 6.4 oz) 08/25/2024 11:03 AM TENSION MACHINE OPERATOR Height 160 cm (5' 3 ) 08/25/2024 11:03 AM TENSION MACHINE OPERATOR Body Mass Index 28.59 08/25/2024 11:03 AM TENSION MACHINE OPERATOR Plan of Treatment Health Maintenance Due Date Last Done Comments Covid-19 Vaccine (2023-09 5 season) 2025 08/19/2024, 06/05/2023, 04/26/2022, Additional [...] 10/14/2024 URINE CULTURE Routine 09/25/2024 12:26 PM TENSION MACHINE OPERATOR REFLEXIVE URINE CULTURE Routine 09/25/2024 12:26 PM TENSION MACHINE OPERATOR URINALYSIS AND REFLEX TO MICROSCOPIC AND CULTURE Routine 09/25/2024 12:26 PM TENSION MACHINE OPERATOR Confusion Memory change COLONOSCOPY Routine 11/11/2020 ABDOMINAL AORTIC ANEURYSM SCREENING Routine 12/29/2019 HEPATITIS C SCREENING Routine 05/04/2018 from Last 3 Months or Most Recently Relevant to Health Maintenance Results * SCAN - RADIOLOGY/IMAGING (10/14/2024) Anatomical Region Laterality Modality Other us Jayme Beltrán MD Final Result * REFLEXIVE URINE CULTURE (09/25/2024 12:26 PM TENSION MACHINE OPERATOR) Urine culture [facility] Comment:CULTURE INDICATED - RESULTS TO FOLLOW 09/25/2024 12:2 6 PM TENSION MACHINE OPERATOR 09/25/2024 12:28 PM TENSION MACHINE OPERATOR us Jayme Beltrán MD LAB MICROBIOLOGY - GENERAL OR DERABLES Final Result Performing Organization Address [facility] Co de Phone Number [facility] [address] [place] [address] * (ABNORMAL) Urinalysis reflex to microscopic and culture Urine, clean voided (09/25/2024 12:26 PM TENSION MACHINE OPERATOR) Color, ur DARK YELLOW [facility] Appearance, ur CLEAR CLEAR [facility] Specific gravity 1.024 1.001 - 1.035 [facility] pH, ur 6.0 5.0 - 8.0 [facility] Glucose, ur NEGATIVE NEGATIVE [facility] Bilirubin, ur NEGATIVE NEGATIVE [facility] Ketones, ur TRACE(A) NEGATIVE [facility] Blood, ur NEGATIVE NEGATIVE [facility] Protein, ur, quant NEGATIVE NEGATIVE [facility] Nitrites, ur NEGATIVE NEGATIVE [facility] Leukocyte esterase, ur TRACE(A) NEGATIVE [facility] WBC, ur NONE SEEN < OR = 5 /HPF [facility] RBC, ur NONE SEEN < OR = 2 /HPF [facility] Epithelial cells, squamous, ur NONE SEEN < OR = 5 /HPF [facility] Bacteria, ur, quant NONE SEEN NONE SEEN /HPF [facility] Hyaline cast NONE SEEN NONE SEEN /LPF [facility] Note [facility] Comment: This urine was analyzed for the presence of WBC, RBC, bacteria, casts, and other formed elements. Only those elements seen were reported. Urine, clean voided 09/25/2024 12:26 PM TENSION MACHINE OPERATOR 09/25/2024 12:28 PM TENSION MACHINE OPERATOR us Jayme Beltrán MD LAB MICROBIOLOGY - GENERAL OR DERABLES Final Result Performing Organization Address [facility] de Phone Number [facility] [address] [place] [address] * Urine culture (09/25/2024 12:26 PM TENSION MACHINE OPERATOR) Urine culture [facility] Comment: CULTURE, URINE, ROUTINE Micro Number: [id number] Test Status: Final Specimen Source: Urine Specimen Quality: Adequate Result: No Growth 09/25/2024 12:2 6 PM TENSION MACHINE OPERATOR 09/25/2024 12:28 PM TENSION MACHINE OPERATOR Jayme Beltrán MD LAB MICROBIOLOGY - GENERAL OR DERABLES Final Result [facility] [address] [place] [address] * COLONOSCOPY (11/11/2020) Pathologist [facility] Scribed Colonoscopy Normal Impressions Jayme Beltrán MD - 11/11/2020 Otherwise normal colonoscopy, [facility]. Details can be found in full report. Narrative Jayme Beltrán MD - 11/11/2020 Nonspecific vascular lesions, diverticuli and internal hemorrhoids, Dr. Minor, [facility]. Historical Provider HEALTH MAINTENANCE Final Result * HEPATITIS C SCREENING (05/04/2018) Pathologist [facility]P C Normal Comment:Result in [facility] here, [facility]. Historical Provider HEALTH MAINTENANCE Final Result from Last 3 Months or Most Recently Relevant to Health Maintenance Insurance AET MEDICARE [facility] MEDICARE AET[employer] MEDICARE Advance Directives For more information, please contact: [phone] Documents on File Type Date Recorded Patient Chief Meteorologist Expl anation ADVANCE DIRECTIVE 08/03/2024 9:39 AM JAKE R OF BUSINESS AREA DIRECTOR-MEDICAL * Full Code (Latest Code Status on File) Date Activated Date Inactivated Comments 08/30/2020 12:41 PM 09/03/2020 8:04 PM Care Teams Dress Draper Relationship Specialty Start Date End Date Jayme Beltrán MD [address] [place] [address] PCP - General Infectious Diseases 02/27/19 Jayme Donis MD PhD [address] [place], [place] [address] [id number] [place] [address] Referring Physician Neurology 10/05/22 Oz Hannah OD [address] [place] [id number] Consulting Physician Optometry 05/14/23 Blayne Gutierrez MD PhD [address] [place], [place] [id number] [place] [address] Consulting Physician Radiology 07/09/23 Yue Heaton, DALIA [address] [facility] [address] [place] [address] Nurse Practitioner Neurosurgery 04/28/24 Ciro Magana, DALIA [address] [place] [address] Nurse Practitioner Neurology 06/20/24 Arpit Jyo MD [address] [place] [address] Consulting Physician Interventional Radiology and Diag Radiology 07/20/24 [place] [address] [place] [address] Consulting Physician Urology 07/17/24 Allyn Gilman MD [address] [facility] [address] [place] [address] Consulting Physician Cardiology 07/12/24
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
[2024-11-21 04:42] VITALS: BP 137/79; PULSE 60; RESP 12; O2SAT 97
[2024-11-21 05:58] VITALS: BP 145/79; PULSE 61; RESP 12; O2SAT 97
[2024-11-21 06:18] VITALS: BP 140/75; PULSE 68; RESP 12; O2SAT 96
== END 2024-11-21 07:05 ==
PROVIDERS: Emergency Provider Preventive Medicine Aerospace Medicine; PCP Internal Medicine Infectious Disease
DX: F03.918 Unspecified dementia, unspecified severity, with other behavioral disturbance (principal); S06.0X0D Concussion without loss of consciousness, subsequent encounter; R94.31 Abnormal electrocardiogram [ECG] [EKG]; D64.9 Anemia, unspecified; D69.6 Thrombocytopenia, unspecified; M19.90 Unspecified osteoarthritis, unspecified site; K74.60 Unspecified cirrhosis of liver; Z79.899 Other long term (current) drug therapy; X58.XXXD Exposure to other specified factors, subsequent encounter
CPT/HCPCS: 36415; 70450; 71045; 80053; 80143; 80179; 80307; 81003; 82077; 84443; 84484; 85025; 85055; 93005; 99284